=== PATIENT | male | born 1955 | race Caucasian/White ===

== ENCOUNTER 2022-05-16 09:18 | Outpatient (REF) | payer OTHER, SELFPAY ==
[2022-05-16 11:36] LABS: MANUAL DIFF FLAG NO
[2022-05-16 11:44] LABS: Basophils Absolute Auto 0.1 X10*3/uL (0.0-0.2); Basophils Percent Auto 1.2 % (0-2); Eosinophils Absolute Auto 0.1 X10*3/uL (0.0-0.4); Eosinophils Percent Auto 2.4 % (0-4); Hematocrit 40.1 % (42.0-52.0); Hemoglobin 13.4 g/dl (14.0-18.0); Imm Gran Abs Auto 0.01 X10*3/uL (0.00-0.03); Imm Gran Pct Auto 0.2 % (0.0-0.4); Lymphocytes Absolute Auto 2.1 X10*3/uL (1.2-4.9); Mean Corpuscular HGB Conc 33.4 g/dl (31.0-36.0); Mean Corpuscular Hemoglobin 29.6 pg (27.0-33.0); Mean Corpuscular Volume 88.5 fL (80.0-98.0); Mean Platelet Volume 11.6 fL (9.4-12.4); Monocytes Absolute Auto 0.5 X10*3/uL (0.1-1.2); Neutrophils Percent Auto 51.2 % (45-73); Platelet Count 195 X10*3/uL (160-400); Red Blood Count 4.53 X10*6/uL (4.60-5.80); Red Cell Distribution Width 13.1 % (11.0-16.0); White Blood Count 5.9 X10*3/uL (4.8-10.8)
[2022-05-16 12:26] LABS: B Type Natriuretic Peptide 99 pg/mL (<100)
[2022-05-16 12:38] LABS: Alanine Aminotransferase 14 U/L (0-40); Albumin Level 4.1 g/dL (3.5-5.0); Alkaline Phosphatase 50 U/L (39-117); Anion Gap 12 (12-20); Aspartate Amino Transferase 16 U/L (5-37); Bilirubin Total 0.9 mg/dL (0.0-1.0); Blood Urea Nitrogen 37 mg/dL (9-16); Calcium 8.9 mg/dL (8.4-10.2); Carbon Dioxide 29 mmol/L (22-29); Chloride 104 mmol/L (96-108); Cholesterol 244 mg/dL; Estimated Glomerular Filt Rate 53; Glucose Fasting 116 mg/dL (60-99); HDL Cholesterol 40 mg/dL; LDL Cholesterol Calculated 177 mg/dl; Potassium 4.7 mmol/L (3.3-5.1); Sodium 140 mmol/L (135-145); Total Protein 6.2 g/dL (6.5-8.0); Triglycerides 139 mg/dL
[2022-05-16 12:54] LABS: Free T4 (Free Thyroxine) 1.21 ng/dL (0.71-1.85); Prostate Specific Antigen Scr 63.42 ng/mL (<0.05-4.0); Thyroid Stimulating Hormone 1.36 uIU/mL (0.32-4.0)
[2022-05-17 18:44] LABS: Triiodothyronine T3 Total 88 ng/dL (76-181)
== END 2022-05-16 09:19 | disposition home or self-care (01) ==
LOC: HO.WFDLDS 09:18
PROVIDERS: Visit Provider Family Medicine
DX: Z00.00 Encounter for general adult medical examination without abnormal findings (principal); Z12.5 Encounter for screening for malignant neoplasm of prostate; I50.9 Heart failure, unspecified; E03.9 Hypothyroidism, unspecified
CPT/HCPCS: 36415; 80053; 80061; 83880; 84153; 84439; 84443; 84480; 85025

== ENCOUNTER 2022-05-17 11:43 | Outpatient (REF) | payer OTHER, SELFPAY ==
[2022-05-17 14:07] LABS: Appearance Urine Clear; Color Urine Yellow; Glucose Urine UA Negative (Negative); Leukocyte Esterase Urine Moderate (2+) (Negative); Nitrite Urine Negative (Negative); PH 5.5 (5.0-9.0); UMIC TRIGGER UA YES; Urine Blood Negative (Negative); Urine Ketones Trace mg/dL (Negative); Urine Protein Negative (Neg-Trace)
[2022-05-17 14:11] LABS: Bacteria Urine 4+ (None Seen); Hyaline Casts Urine 0-2 /LPF (0-2); RBC Urine 0-2 /HPF (0-2); Squamous Epithelial Cell Urine 0-2 /HPF (0-2)
[2022-05-17 14:57] LABS: Creatinine Urine 142.18 mg/dL; Microalbum/Creatinine Ratio Ur 9.1 ug/mg cr
== END 2022-05-17 11:44 | disposition home or self-care (01) ==
LOC: HO.WFDLNP 11:43
PROVIDERS: Visit Provider Family Medicine
DX: Z00.00 Encounter for general adult medical examination without abnormal findings (principal); I10 Essential (primary) hypertension
CPT/HCPCS: 81001; 81003; 82043

== ENCOUNTER → 2022-05-25 13:01 | Outpatient (BNVA) | payer OTHER, SELFPAY | PROVIDERS: PCP Family Medicine; Visit Provider Nurse Practitioner Family | DX: R97.20 Elevated prostate specific antigen [PSA] (principal); R33.9 Retention of urine, unspecified; Z91.14 Patient's other noncompliance with medication regimen; Z79.02 Long term (current) use of antithrombotics/antiplatelets | CPT/HCPCS: 51798; 99202 ==

== ENCOUNTER 2022-06-30 12:53 | Outpatient (REF) | payer OTHER, SELFPAY ==
[2022-06-30 13:33] LABS: MANUAL DIFF FLAG NO
[2022-06-30 13:41] LABS: Basophils Absolute Auto 0.1 X10*3/uL (0.0-0.2); Eosinophils Absolute Auto 0.2 X10*3/uL (0.0-0.4); Eosinophils Percent Auto 2.4 % (0-4); Hematocrit 37.7 % (42.0-52.0); Hemoglobin 12.6 g/dl (14.0-18.0); Imm Gran Abs Auto 0.02 X10*3/uL (0.00-0.03); Imm Gran Pct Auto 0.3 % (0.0-0.4); Immature Retic Fraction 5.8 % (2.3-13.4); Lymphocytes Absolute Auto 2.2 X10*3/uL (1.2-4.9); Lymphocytes Percent Auto 31.9 % (20-40); Mean Corpuscular HGB Conc 33.4 g/dl (31.0-36.0); Mean Corpuscular Hemoglobin 29.9 pg (27.0-33.0); Mean Corpuscular Volume 89.5 fL (80.0-98.0); Mean Platelet Volume 11.1 fL (9.4-12.4); Monocytes Absolute Auto 0.5 X10*3/uL (0.1-1.2); Monocytes Percent Auto 7.7 % (2-11); Neutrophils Absolute Auto 3.8 x10*3/uL (2.0-8.3); Neutrophils Percent Auto 56.7 % (45-73); Platelet Count 210 X10*3/uL (160-400); Red Blood Count 4.21 X10*6/uL (4.60-5.80); Red Cell Distribution Width 13.4 % (11.0-16.0); Retic HGB Equivalent 36.1 pg (30.0-35.0); Reticulocyte Percent 1.6 % (0.5-1.8); Reticulocytes Absolute 0.068 X10*6/uL (0.026-0.095); White Blood Count 6.8 X10*3/uL (4.8-10.8)
[2022-06-30 15:37] LABS: Iron 175 mcg/dL (45-160); Percent Iron Saturation 64 % (15-50); Total Iron Binding Capacity 275 mcg/dL (228-428); Unsaturated Iron Binding 100 ug/dL
[2022-06-30 15:56] LABS: Ferritin 742 ng/mL (20-250); Folate 8.4 ng/mL (> or = 4.0); Vitamin B12 361 pg/mL (200-900)
== END 2022-06-30 12:54 | disposition home or self-care (01) ==
LOC: HO.WFDLDS 12:53
PROVIDERS: Visit Provider Family Medicine
DX: Z00.00 Encounter for general adult medical examination without abnormal findings (principal); E53.8 Deficiency of other specified B group vitamins; D64.9 Anemia, unspecified
CPT/HCPCS: 36415; 82607; 82728; 82746; 83540; 85025; 85045

== ENCOUNTER → 2022-07-21 11:28 | Outpatient (BNVA) | payer OTHER, SELFPAY | PROVIDERS: PCP Family Medicine; Visit Provider Urology | DX: N31.9 Neuromuscular dysfunction of bladder, unspecified (principal); R97.20 Elevated prostate specific antigen [PSA]; Z80.42 Family history of malignant neoplasm of prostate; Z79.01 Long term (current) use of anticoagulants | CPT/HCPCS: Q3014 ==

== ENCOUNTER 2022-07-27 11:38 | Outpatient (REF) | payer OTHER, SELFPAY ==
[2022-07-27 11:50] VITALS: BMI 24.4
[2022-07-27 11:51] VITALS: BP 148/75; PULSE 55; RESP 16; TEMP 36.7; O2SAT 100
--- NOTE | 2022-07-27 12:17 | W.PM.OPN ---
Operative Note Operative Note Date of Service: 07/27/22 Narrative: Preoperative diagnosis: Elevated PSA Postoperative diagnosis: Elevated PSA Procedure: 1. transrectal ultrasound measurement of prostate 2. transrectal ultrasound-guided pudendal nerve block 3. transrectal ultrasound-guided prostate biopsy 12 core Surgeon: Dr. Naeem Leija Anesthetic: Local Indications for procedure: Elevated PSA 64 Procedure: After informed consent was verified, the patient was brought into the procedure area and lay left-hand side down on the table. Patient identity confirmed. Perioperative antibiotics confirmed. Safety pause time out performed. MARIA VICTORIA performed to dilate rectal sphincter Iodine 10cc with Gel was placed per rectum Ultrasound probe was placed per rectum The prostate was measured in 3 dimensions Total volume equals 60 gm No cystic structures were noted calcifications were noted at the surgical margin The prostate was otherwise heterogenous in nature - anterior lobe tissue An ultrasound-guided pudendal nerve block was performed using 10 cc of 1% lidocaine. 8 cc was placed at the base and 2 cc of the apex. A 12 core biopsy was performed with 6 cores each side. Two cores were taken at the apex, mid and base. Cores were spaced between lateral and medial. He tolerated the procedure well. Was able to ambulate to bathroom after 5 minutes. Printed instructions regarding antibiotic use and common side effects such as low-grade temperature, potential infection and bleeding were given Pathology: 12 core prostate biopsy + 1 targetted bioposy of left anterior tissue
[2022-07-27 12:25] VITALS: BP 126/74; PULSE 55; RESP 16; O2SAT 100
== END 2022-07-27 11:39 | disposition home or self-care (01) ==
LOC: HO.MS 11:38
PROVIDERS: PCP Family Medicine; Visit Provider Urology
PROC: (CPT 55700; principal; 2022-07-27 12:00)
DX: C61 Malignant neoplasm of prostate (principal)
CPT/HCPCS: 55700; 76942; 88305

== ENCOUNTER 2022-08-03 14:45 | Outpatient (AMB) | payer OTHER, SELFPAY ==
--- NOTE | 2022-08-03 14:46 | A.OFFVIS_ITS ---
Intake Intake Visit Reasons: bx results Intake Note: Patient is present for Biopsy Urology Med: None Antibiotic Allergy: None Blood Thinner: Eliquis Allergies shellfish derived Allergy (Verified 09/22/22 08:54) Anaphylaxis environmental allergies Adverse Reaction (Mild, Verified 09/22/22 08:54) Sneezing Medication List - Last Reconciled 08/03/22 by Naeem Leija MD amiodarone 0 mg PO apixaban (Eliquis) 5 mg PO BID furosemide 40 mg PO DAILY levofloxacin 500 mg PO daily 3 days lisinopril 5 mg PO DAILY metoprolol succinate ER 100 mg PO DAILY HPI HPI Comments History of Present Illness Details Anthony is a pleasant male. He is a patient of Dr. Bower. He seen for the following urologic conditions - neurogenic bladder - prostate cancer Discussed biopsy results High-grade, high-volume prostate cancer Concerns regarding metastatic disease Will organized bone scan with pelvic CT Start anti androgen with bicalutamide with plan for GnRH injection Prostate Cancer 09/18 - High Volume, Grade 5 PSA at diagnosis 63 Kale score: 5+4=9 (right base lateral and medial; right mid lateral and right apex medial), 4+5=9 (left base lateral and medial; left mid medial, right mid medial, right apex lateral), 4+4=8 (left mid lateral, left apex lateral and medial) Tumor quantitation: ? Number cores positive: 12 Total number of cores: 12 % of tissue involved:50% of all tissue examined Periprostatic fat inv.:Not identified Seminal vesicle inv.:Not identified Perineural inv.:Present, widespread LVI:Not identified Neurogenic bladder with elevated PSA Longstanding Performs CIC 6-8 times per day. Previously followed by [facility]. Supplies from [facility] pharmacy. Family history prostate cancer Recent MARIA VICTORIA shows firm prostate in office PSA 05/19 64 [facility] Surgical History Previous back surgery Social History Housing: House Alcohol intake: current Alcohol intake frequency: holidays/special occasions only Patient Tobacco Use Status: Former Tobacco user Quit Date: 1990 e-Cigarette/Vaping Use: Never Used service: Yes Current occupational status: retired Review of Systems Const Denies chills and Denies fever(s) Card Reports no additional complaints and Denies syncope Resp Denies cough GI Denies abdominal pain and Denies heartburn Reports as per HPI and Denies change in libido Neuro Denies syncope Psych Denies change in libido Endo Denies change in libido Physical Exam Const General: cooperative, healthy appearing, comfortable and no acute distress Orientation/consciousness: patient oriented x3 HEENT Face and sinus: Yes normal facial exam Mouth: moist mucous membranes Neck Neck: Yes normal visual inspection, Yes full ROM and Yes trachea midline Chest Chest palpation & inspection: normal inspection of the chest Resp Effort & Inspection: normal respiratory effort, able to speak in complete sentences and no respiratory distress GI Inspection: Yes normal to inspection Back/Spine/Pelvis Cervical Spine: normal cervical lordosis Thoracic/Lumbar Spine: thoracic and lumbar spine normal to inspection Skin General skin exam: no rashes or lesions noted Neuro General: patient oriented x3, gait normal, tone normal and moves all extremities Extrem General: Yes normal to inspection and Yes capillary refill normal Assessment & Plan Assessment & Plan (1) Prostate cancer: Code(s): C61 - Malignant neoplasm of prostate Plan Prostate cancer staging for metastatic disease Orders: Orders Blood Urea Nitrogen 08/03/22 R39.15 - Urgency of urination, C61 - Malignant neoplasm of prostate Creatinine 08/03/22 R39.15 - Urgency of urination, C61 - Malignant neoplasm of prostate CT pelvis wo IV con 08/03/22 C61 - Malignant neoplasm of prostate XR DEXA axial skeleton 3 Months M85.80 - Other specified disorders of bone density and structure, unspecified site, C61 - Malignant neoplasm of prostate NM bone scan whole body 08/03/22 C61 - Malignant neoplasm of prostate, C79.51 - Secondary malignant neoplasm of bone Medications: New bicalutamide 50 mg PO DAILY 30 tabs 0RF 30 days C61 - Malignant neoplasm of prostate Patient Instructions: Imaging studies, laboratory and physical exam results were discussed and reviewed in detail. No major barriers to patient understanding were identified. An opportunity to ask questions regarding the treatment plan was provided. All questions were answered. The patient expressed understanding and agreement with the above treatment plan. The patient is aware they should contact our office by phone for worsening of their current condition or the appearance of new urologic symptoms. Compliance is encouraged with any medications and followup testing that is ordered. It is a privilege to participate in the urologic care of your patient. If you have any questions or concerns regarding treatment for the above conditions, or other urologic issues, please do not hesitate to contact me. The office telephone contact is [phone]. This note is constructed using voice recognition software. While every effort has been made to ensure accuracy cream beater errors may have been included. Yours sincerely, Dr Naeem Leija MD, [facility] - Urology Providers of Expert, Compassionate Care for the Genitourinary System Coding Level of Care Code Est Pt Level 4 (24990) Diagnoses Prostate cancer C61
== END 2022-08-03 15:40 | disposition home or self-care (01) ==
PROVIDERS: PCP Family Medicine; Visit Provider Urology
DX: C61 Malignant neoplasm of prostate (principal)
CPT/HCPCS: 99214

== ENCOUNTER → 2022-08-03 14:45 | Outpatient (BNVA) | payer OTHER, SELFPAY | PROVIDERS: PCP Family Medicine; Visit Provider Urology | DX: C61 Malignant neoplasm of prostate (principal) | CPT/HCPCS: 99212 ==

== ENCOUNTER → 2022-09-08 10:55 | Outpatient (REF) | payer OTHER, SELFPAY ==
--- NOTE | ~2022-09-08 | NM_ITS ---
EXAMINATION: NM BONE SCAN OF THE WHOLE BODY CLINICAL INFORMATION: Malignant neoplasm of prostate. History of back surgery 35 years ago. COMPARISON: No relevant prior images are available for comparison. TECHNIQUE: Multiple gamma scintillation camera images of the whole body were performed 2.5 hours following the intravenous administration of 27 mCi Tc-99m MDP. The radiotracer was injected through left antecubital superficial vein without complications. FINDINGS: In the head, no suspicious focal lesion. In the thoracic cage and upper extremities, periarticular increased radiotracer activities are noted around both shoulders, appear relatively symmetric likely represent arthritic changes. Mild increased radiotracer activities involving bilateral ribs, specifically involving bilateral first ribs (left greater than right). Given the symmetry CT, unlikely to be metastatic disease however, metastasis is included in the differential, given its linear distribution. Alternative imaging modality including follow-up PSMA PET/CT study as appropriate may be considered for further clarification. In the spine, no suspicious focal lesion. In the pelvis, no suspicious focal lesion. In the lower extremities, periarticular increased radiotracer activities around both knees likely represent arthritic changes. No other definite bony abnormalities are noted. The urinary bladder and faint visualization of both kidneys are noted. NM/NM bone scan whole body IMPRESSION: No definite evidence of any osseous metastasis. However, increased radiotracer activities are present at both shoulder and both first ribs (left greater than right), nonspecific in appearance. Alternative imaging modality including follow-up PSMA PET/CT study may be considered for further full detail evaluation, as clinically appropriate.
== END ==
LOC: HO.NUCMED 10:55
PROVIDERS: PCP Family Medicine; Visit Provider Urology
DX: C61 Malignant neoplasm of prostate (principal); C79.51 Secondary malignant neoplasm of bone
CPT/HCPCS: 78306; A9503

== ENCOUNTER 2022-09-14 10:07 | Outpatient (REF) | payer OTHER, SELFPAY ==
--- NOTE | ~2022-09-14 | CT_ITS ---
EXAMINATION: CT PELVIS WITHOUT CONTRAST CLINICAL INFORMATION: Malignant neoplasm of prostate. COMPARISON: None available. TECHNIQUE: Helical scanning was performed with submillimeter collimation through the pelvis. Sagittal and coronal multiplanar 2-D reconstructions were obtained. This CT examination was performed using dose optimization techniques as appropriate, variously including the following: *Automated exposure control *Adjustment of mA and/or kV according to patient size (this includes techniques or standardized protocols for targeted exams where dose is matched to indication/reason for exam; i.e. extremities or head) *Use of iterative reconstruction technique DLP: 445 mGy-cm FINDINGS: PELVIS: There is scattered stool and gas seen throughout the colon without distention. The small bowel loops are normal caliber. Appendix is not visualized. No free air or free fluid seen. The urinary bladder is nondistended, however, there is mild mural thickening suspected. It measures 5 mm. The prostate gland is mildly enlarged. Periprostatic fat planes are preserved. No abnormal pelvic lymph nodes seen. OSSEOUS STRUCTURES: There are degenerative disc changes with vacuum disc phenomena L3-L4, L4-L5 and L5-S1 disc levels. No aggressive lytic process seen. There is a small sclerotic 4 mm density left sacrum likely a small bone island. No additional sclerotic area seen. CT/CT pelvis wo IV con IMPRESSION: Moderate constipation. Mild prostate enlargement. No aggressive lytic process seen. There is small sclerotic density left sacrum likely a small bone island. There are degenerative disc changes with vacuum disc phenomena at L3-L4, L4-L5 and L5-S1 disc levels.
== END 2022-09-14 10:08 | disposition home or self-care (01) ==
LOC: HO.CT 10:07
PROVIDERS: PCP Family Medicine; Visit Provider Urology
DX: C61 Malignant neoplasm of prostate (principal)
CPT/HCPCS: 72192

== ENCOUNTER 2022-09-19 08:22 | Outpatient (REF) | payer OTHER, SELFPAY ==
[2022-09-19 11:57] LABS: Blood Urea Nitrogen 27 mg/dL (9-16)
[2022-09-19 11:58] LABS: Alanine Aminotransferase 12 U/L (0-40); Albumin Level 4.1 g/dL (3.5-5.0); Alkaline Phosphatase 53 U/L (39-117); Anion Gap 10 (12-20); Aspartate Amino Transferase 13 U/L (5-37); Bilirubin Total 0.3 mg/dL (0.0-1.0); Blood Urea Nitrogen 27 mg/dL (9-16); Calcium 9.3 mg/dL (8.4-10.2); Carbon Dioxide 28 mmol/L (22-29); Chloride 108 mmol/L (96-108); Cholesterol 213 mg/dL; Estimated Glomerular Filt Rate 53; Glucose Fasting 112 mg/dL (60-99); HDL Cholesterol 36 mg/dL; LDL Cholesterol Calculated 149 mg/dl; Potassium 5.1 mmol/L (3.3-5.1); Sodium 141 mmol/L (135-145); Total Protein 6.6 g/dL (6.5-8.0); Triglycerides 140 mg/dL
== END 2022-09-19 08:23 | disposition home or self-care (01) ==
LOC: HO.WFDLDS 08:22
PROVIDERS: Urology; Visit Provider Family Medicine
DX: Z00.00 Encounter for general adult medical examination without abnormal findings (principal); R73.01 Impaired fasting glucose; E78.00 Pure hypercholesterolemia, unspecified; C61 Malignant neoplasm of prostate; R39.15 Urgency of urination
CPT/HCPCS: 36415; 80053; 80061; 84520

== ENCOUNTER 2022-09-22 08:41 | Outpatient (AMB) | payer OTHER, SELFPAY ==
--- NOTE | 2022-09-22 08:53 | A.OFFVIS_ITS ---
Intake Intake Visit Reasons: GnRH/bone scan/CT(09/08-09/14) Intake Note: Patient is present for Follow Up Bone scan/ CT (Authorization for Al[facility] is still in progress) Urology Med: Bicalutamide Antibiotic Allergy: None Blood Thinner: Eliquis Allergies shellfish derived Allergy (Verified 09/22/22 08:54) Anaphylaxis environmental allergies Adverse Reaction (Mild, Verified 09/22/22 08:54) Sneezing Medication List - Last Reconciled 09/22/22 by Naeem Leija MD amiodarone 0 mg PO apixaban (Eliquis) 5 mg PO BID bicalutamide 50 mg PO DAILY 90 days furosemide 40 mg PO DAILY levofloxacin 500 mg PO daily 3 days lisinopril 5 mg PO DAILY metoprolol succinate ER 100 mg PO DAILY HPI HPI Comments History of Present Illness Details Anthony is a pleasant male. He is a patient of Dr. Bower. He seen for the following urologic conditions - neurogenic bladder - prostate cancer Discussed imaging findings Printed copies of results provided High-grade, high-volume prostate cancer No evidence of metastatic disease Plan for prostate MRI If localization confirmed would be suitable candidate for external beam radiation Prostate Cancer 09/18 - High Volume, Grade 5 PSA at diagnosis 63 Kale score: 5+4=9 (right base lateral and medial; right mid lateral and right apex medial), 4+5=9 (left base lateral and medial; left mid medial, right mid medial, right apex lateral), 4+4=8 (left mid lateral, left apex lateral and medial) Tumor quantitation: ? Number cores positive: 12 Total number of cores: 12 % of tissue involved:50% of all tissue examined Periprostatic fat inv.:Not identified Seminal vesicle inv.:Not identified Perineural inv.:Present, widespread LVI:Not identified Staging - 09/18 Bone Scan - No definite evidence of any osseous metastasis Neurogenic bladder with elevated PSA Longstanding Performs CIC 6-8 times per day. Previously followed by [facility]. Supplies from [facility] pharmacy. Family history prostate cancer Recent MARIA VICTORIA shows firm prostate in office PSA 05/19 63 [facility] Surgical History Previous back surgery Social History Housing: House Alcohol intake: current Alcohol intake frequency: holidays/special occasions only Patient Tobacco Use Status: Former Tobacco user Quit Date: 1990 e-Cigarette/Vaping Use: Never Used service: Yes Current occupational status: retired Review of Systems Const Denies chills and Denies fever(s) Card Reports no additional complaints and Denies syncope Resp Denies cough GI Denies abdominal pain and Denies heartburn Reports as per HPI and Denies change in libido Neuro Denies syncope Psych Denies change in libido Endo Denies change in libido Physical Exam Const General: cooperative, healthy appearing, comfortable and no acute distress Orientation/consciousness: patient oriented x3 HEENT Face and sinus: Yes normal facial exam Mouth: moist mucous membranes Neck Neck: Yes normal visual inspection, Yes full ROM and Yes trachea midline Chest Chest palpation & inspection: normal inspection of the chest Resp Effort & Inspection: normal respiratory effort, able to speak in complete sentences and no respiratory distress GI Inspection: Yes normal to inspection Back/Spine/Pelvis Cervical Spine: normal cervical lordosis Thoracic/Lumbar Spine: thoracic and lumbar spine normal to inspection Skin General skin exam: no rashes or lesions noted Neuro General: patient oriented x3, gait normal, tone normal and moves all extremities Extrem General: Yes normal to inspection and Yes capillary refill normal Assessment & Plan Assessment & Plan (1) Prostate cancer: Code(s): C61 - Malignant neoplasm of prostate Plan Prostate MRI to complete staging for assessment of external beam radiation suitability Orders: Orders MR pelvis wo/w con Today C61 - Malignant neoplasm of prostate Medications: Changed From bicalutamide 50 mg PO DAILY 30 tabs 0RF 30 days C61 - Malignant neoplasm of prostate To bicalutamide 50 mg PO DAILY 90 tabs 0RF 90 days C61 - Malignant neoplasm of prostate Patient Instructions: Imaging studies, laboratory and physical exam results were discussed and reviewed in detail. No major barriers to patient understanding were identified. An opportunity to ask questions regarding the treatment plan was provided. All questions were answered. The patient expressed understanding and agreement with the above treatment plan. The patient is aware they should contact our office by phone for worsening of their current condition or the appearance of new urologic symptoms. Compliance is encouraged with any medications and followup testing that is ordered. It is a privilege to participate in the urologic care of your patient. If you have any questions or concerns regarding treatment for the above conditions, or other urologic issues, please do not hesitate to contact me. The office telephone contact is [phone]. This note is constructed using voice recognition software. While every effort has been made to ensure accuracy nurse wound errors may have been included. Yours sincerely, Dr Naeem Leija MD, [facility] - Urology Providers of Expert, Compassionate Care for the Genitourinary System Coding Level of Care Code Est Pt Level 4 (95684) Diagnoses Prostate cancer C61
== END 2022-09-22 09:10 | disposition home or self-care (01) ==
PROVIDERS: PCP Family Medicine; Visit Provider Urology
DX: C61 Malignant neoplasm of prostate (principal)
CPT/HCPCS: 99214

== ENCOUNTER → 2022-09-22 08:41 | Outpatient (BNVA) | payer OTHER, SELFPAY | PROVIDERS: PCP Family Medicine; Visit Provider Urology | DX: C61 Malignant neoplasm of prostate (principal) | CPT/HCPCS: 99212 ==

== ENCOUNTER 2022-09-27 11:27 | Outpatient (AMB) | payer OTHER, SELFPAY ==
--- NOTE | 2022-09-27 11:33 | MHC.PC.OV ---
Vital Signs 09/27/22 11:37 Height 5 ft 10 in Weight 175 lb BMI 25.1 BP 126/76 Blood Pressure Location Lt brachial Position Sitting Pulse 55 Pulse Source Pulse Oximeter Pulse Oximetry (%) 98 Intake Visit Reasons: f/u hypercholesterolemia, pre-diabetes,mild anemia Intake Note: pt is here for hypercholsterolemia, pre dm, mild anemia Retail Advertising Executive Required: No Accompanied by: Self / Same As Patient Allergies shellfish derived Allergy (Verified 09/27/22 11:33) Anaphylaxis environmental allergies Adverse Reaction (Mild, Verified 09/27/22 11:33) Sneezing Tobacco use date assessed: 09/27/22 Fall risk assessment: No Falls in past year Last assessed Fall Risk: 09/27/22 Dental Screening Dental Screen Date: 09/27/22 Did you have a dental visit in the last 12 months?: No Did you have a dental problem in the last 6 months where you did not have access to dental care?: No Was dental information given to patient?: Yes HPI f/u hypercholesterolemia, pre-diabetes,mild anemia HPI Details 67 y/o male presents to f/u pre-diabetes and hyperlipidemia. Labs were drawn 09/19/22. Reviewed labs with pt. Last A1c 06/30/22 was 6.1%. A1c today 09/27/22 is 6.2%. Triglycerides 140. TC 213. LDL 149. HDL low at 36. Pt reports today his ears are bothering him. He does note he has allergies. Blood pressure today is 126/76. He is on lisinopril 5mg and metoprolol 100mg daily. [facility] Surgical History Previous back surgery Social History Housing: House Alcohol intake: current Alcohol intake frequency: holidays/special occasions only Patient Tobacco Use Status: Former Tobacco user Quit Date: 1990 e-Cigarette/Vaping Use: Never Used service: Yes Current occupational status: retired Cognitive needs: No Hearing needs: No Vision needs: No Questionnaire Thrive Questionnaire Date Thrive assessed: 03/15/22 CAMELIA-7 AMB Questionnaire CAMELIA-7 Date CAMELIA - 7 assessed: 03/15/22 Source: Developed by Drs. David Haddad, Delfina Estes, Audie Coats and colleagues, with an educational eve from [employer]. Review of Systems Const Denies chills, Denies fatigue, Denies fever(s), Denies headache(s) and Denies weakness ENT Denies dizziness and Denies headache(s) Card Denies dyspnea Resp Denies cough, Denies dyspnea, Denies wheezing and Denies other (shortness of breath) Musc Denies numbness and Denies tingling Neuro Denies dizziness, Denies headache(s), Denies numbness, Denies tingling and Denies weakness Psych Denies anxiety and Denies depression Endo Denies fatigue Aller/Immun Denies wheezing Physical exam (Primary Care) Vital Signs: Last Vital Signs Pulse 55 09/27/22 11:37 BP 126/76 09/27/22 11:37 Pulse Ox 98 09/27/22 11:37 BMI result Body Mass Index 25.1 Tobacco/Smoking Status: Tobacco use Status Tobacco use date assessed 09/27/22 09/27/22 11:34 Patient Tobacco Use Status Former Tobacco user 09/27/22 11:34 e-Cigarette/Vaping Use Never Used 09/27/22 11:34 Thrive Assessment: Date of Thrive Assessment Date Thrive assessed 03/15/22 09/27/22 11:34 Const General: well developed; No acute distress Nutritional Appearance: well nourished Orientation/consciousness: patient oriented x3 HENMT Head: Yes normocephalic and Yes atraumatic Eyes General: appearance normal, both eyes and all related structures Pupils: Equal, round and reactive pupils present EOM: EOMs intact bilaterally Resp Effort & Inspection: normal respiratory effort Neuro General: patient oriented x3 and gait normal Cranial nerves: Yes Equal, round and reactive pupils present Psych Affect: normal affect Assessment and Plan Assessment & Plan (1) Essential hypertension: Code(s): I10 - Essential (primary) hypertension Plan: Blood pressure is controlled. Goal is less than 140/90 Continue current medications (2) Pre-diabetes: Code(s): R73.03 - Prediabetes Plan: A1c climb from 6.1% to 6.2%; pre diabetes Will ask the nurse navigator to review diet and lifestyle changes (3) Hypercholesterolemia: Code(s): E78.00 - Pure hypercholesterolemia, unspecified Plan: Lipids improved with some lifestyle changes but still elevated LDL cholesterol Start small dose Of atorvastatin will follow-up in a few months (4) Left otitis media: Code(s): H66.92 - Otitis media, unspecified, left ear Plan: Start amoxicillin (5) Low HDL (under 40): Code(s): E78.6 - Lipoprotein deficiency Plan: Encouraged exercise (6) Anemia: Code(s): D64.9 - Anemia, unspecified Plan: Persistent normocytic anemia and slightly worse than prior check Referred to Hematology-Oncology Orders: Orders Complete Blood Count Auto Diff Today D64.9 - Anemia, unspecified, Z00.00 - Encounter for general adult medical examination without abnormal findings Basic Metabolic Panel Today I48.91 - Unspecified atrial fibrillation, Z00.00 - Encounter for general adult medical examination without abnormal findings Triiodothyronine T3 Total Today E03.9 - Hypothyroidism, unspecified, I48.91 - Unspecified atrial fibrillation Free T4 (Free Thyroxine) Today E03.9 - Hypothyroidism, unspecified, I48.91 - Unspecified atrial fibrillation Thyroid Stimulating Hormone Today E03.9 - Hypothyroidism, unspecified, I48.91 - Unspecified atrial fibrillation Basic Metabolic Panel Fasting 10 Weeks E78.00 - Pure hypercholesterolemia, unspecified Lipid Panel 10 Weeks E78.00 - Pure hypercholesterolemia, unspecified, Z00.00 - Encounter for general adult medical examination without abnormal findings AMB Hemoglobin A1c Today R73.03 - Prediabetes Referrals Hematology & Oncology Referral D64.9 - Anemia, unspecified Nurse Navigator Referral R73.03 - Prediabetes Medications: New amoxicillin 500 mg PO Q12H 10 days 20 tabs 0RF atorvastatin 10 mg PO BEDTIME 90 tabs 2RF 90 days Coding Level of Care Code Est Pt Level 4 (00018) Diagnoses Essential hypertension I10 Pre-diabetes R73.03 Hypercholesterolemia E78.00 Left otitis media H66.92 Low HDL (under 40) E78.6 Anemia D64.9
[2022-09-27 11:37] VITALS: BP 126/76; PULSE 55; O2SAT 98; BMI 25.1
== END 2022-09-27 11:56 | disposition home or self-care (01) ==
PROVIDERS: PCP Family Medicine; Visit Provider Family Medicine
DX: I10 Essential (primary) hypertension (principal); R73.03 Prediabetes; E78.00 Pure hypercholesterolemia, unspecified; H66.92 Otitis media, unspecified, left ear; E78.6 Lipoprotein deficiency; D64.9 Anemia, unspecified
CPT/HCPCS: 83036; 99214

== ENCOUNTER → 2022-10-03 11:29 | Outpatient (BNV) | payer OTHER, SELFPAY | PROVIDERS: PCP Family Medicine; Visit Provider Internal Medicine | DX: D64.9 Anemia, unspecified (principal); C61 Malignant neoplasm of prostate | CPT/HCPCS: 99204; 99214 ==

== ENCOUNTER 2022-10-05 09:59 | Outpatient (AMB) | payer OTHER, SELFPAY ==
--- NOTE | 2022-10-05 10:03 | AM.OFFVISNUR ---
Intake Intake Visit Reasons: GnRH(approved) Allergies shellfish derived Allergy (Verified 09/27/22 11:33) Anaphylaxis environmental allergies Adverse Reaction (Mild, Verified 09/27/22 11:33) Sneezing Office Meds Almaz (6 month) Performing Provider: Naeem Leija MD Administered by: Caitlyn Dinero RN on 10/05/22 10:03 Dose Route Admin Location Lot Number Expiration Date NDC Nondestructive Tester 45 mg subcut left arm [id number] 12/29/23 88021-272-90 [employer]. Coding Diagnoses Assessment & Plan Assessment & Plan Orders: Orders AMB Leuprolide Injection - Practice Supplied Today C61 - Malignant neoplasm of prostate
== END 2022-10-05 10:22 | disposition home or self-care (01) ==
PROVIDERS: PCP Family Medicine; Visit Provider Urology
DX: C61 Malignant neoplasm of prostate (principal)

== ENCOUNTER → 2022-10-05 09:59 | Outpatient (BNVA) | payer OTHER, SELFPAY | PROVIDERS: PCP Family Medicine; Visit Provider Urology | DX: C61 Malignant neoplasm of prostate (principal) | CPT/HCPCS: 96402; J9217 ==

== ENCOUNTER 2022-11-08 15:07 | Outpatient (AMB) | payer OTHER, SELFPAY ==
--- NOTE | 2022-11-08 15:17 | MHC.OFFVIS ---
Intake Intake Visit Reasons: 4w/MRI (set) Intake Note: Patient is present for Follow Up MRI Urology Med: Bicalutamide, Eligard(q6m) Antibiotic Allergy: None Blood Thinner: Eliquis Pharmacy: [facility] Allergies shellfish derived Allergy (Verified 09/27/22 11:33) Anaphylaxis environmental allergies Adverse Reaction (Mild, Verified 09/27/22 11:33) Sneezing Medication List - Last Reconciled 11/08/22 by Naeem Leija MD amiodarone (Pacerone) 200 mg PO DAILY amoxicillin 500 mg PO Q12H 10 days apixaban (Eliquis) 5 mg PO BID atorvastatin 10 mg PO BEDTIME 90 days bicalutamide 50 mg PO DAILY 90 days leuprolide acetate (6 month) (Eligard) 45 mg subcut [id number] lisinopril 5 mg PO DAILY metoprolol succinate ER (Toprol XL) 100 mg PO DAILY HPI HPI Comments History of Present Illness Details Anthony is a pleasant male. He is a patient of Dr. Bower. He seen for the following urologic conditions - neurogenic bladder - prostate cancer Discussed imaging findings Printed copies of results provided High-grade, high-volume prostate cancer No evidence of metastatic disease Plan for prostate MRI If localization confirmed would be suitable candidate for external beam radiation Prostate Cancer 09/18 - High Volume, Grade 5 - GnRH 10/19 PSA at diagnosis 63 Kale score: 5+4=9 (right base lateral and medial; right mid lateral and right apex medial), 4+5=9 (left base lateral and medial; left mid medial, right mid medial, right apex lateral), 4+4=8 (left mid lateral, left apex lateral and medial) Tumor quantitation: ? Number cores positive: 12 Total number of cores: 12 % of tissue involved:50% of all tissue examined Periprostatic fat inv.:Not identified Seminal vesicle inv.:Not identified Perineural inv.:Present, widespread LVI:Not identified Staging - 09/18 Bone Scan - No definite evidence of any osseous metastasis - 10/19 prostate MRI, 2.5 cm posterior lesion PI-RADS 5, probable T3 a extension to seminal vesicles Neurogenic bladder with elevated PSA Longstanding Performs CIC 6-8 times per day. Previously followed by [facility]. Supplies from [facility] pharmacy. 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) Anemia Lipoprotein deficiency Essential hypertension Pre-diabetes Hyperlipidemia Hypercholesterolemia Surgical History Previous back surgery Family History Father Prostate cancer Lung cancer Social History Household Members: None Housing: House Alcohol intake: current Alcohol intake frequency: holidays/special occasions only Patient Tobacco Use Status: Former Tobacco user Quit Date: 1990 Tobacco use type: Cigarette e-Cigarette/Vaping Use: Never Used service: Yes ([employer]) Current occupational status: retired Cognitive needs: No Hearing needs: No Vision needs: No Assessment & Plan Assessment & Plan (1) Prostate cancer: Comment: High-grade, high volume, T3 disease Code(s): C61 - Malignant neoplasm of prostate Plan Radiation oncology referral Orders: Referrals Radiation Oncology Referral C61 - Malignant neoplasm of prostate Medications: New levofloxacin take 1 tablet day before procedure, 1 tablet day of procedure and 1 tablet day after procedure 500 mg PO daily 3 tabs 0RF 3 days C61 - Malignant neoplasm of prostate Patient Instructions: Imaging studies, laboratory and physical exam results were discussed and reviewed in detail. No major barriers to patient understanding were identified. An opportunity to ask questions regarding the treatment plan was provided. All questions were answered. The patient expressed understanding and agreement with the above treatment plan. The patient is aware they should contact our office by phone for worsening of their current condition or the appearance of new urologic symptoms. Compliance is encouraged with any medications and followup testing that is ordered. It is a privilege to participate in the urologic care of your patient. If you have any questions or concerns regarding treatment for the above conditions, or other urologic issues, please do not hesitate to contact me. The office telephone contact is [phone]. This note is constructed using voice recognition software. While every effort has been made to ensure accuracy special forces officer errors may have been included. Yours sincerely, Dr Naeem Leija MD, [facility] - Urology Providers of Expert, Compassionate Care for the Genitourinary System Coding Level of Care Code Est Pt Level 4 (89157) Diagnoses Prostate cancer C61
== END 2022-11-08 15:26 | disposition home or self-care (01) ==
PROVIDERS: PCP Family Medicine; Visit Provider Urology
DX: C61 Malignant neoplasm of prostate (principal)
CPT/HCPCS: 99214

== ENCOUNTER → 2022-11-08 15:07 | Outpatient (BNVA) | payer OTHER, SELFPAY | PROVIDERS: PCP Family Medicine; Visit Provider Urology | DX: C61 Malignant neoplasm of prostate (principal) | CPT/HCPCS: 99212 ==

== ENCOUNTER 2025-01-20 08:00 | Inpatient (IN) | payer MEDICARE, SELFPAY ==
[2025-01-20] VITALS (10 sets, daily range): BP systolic 86–160; BP diastolic 63–110; PULSE 95–158; RESP 16–26; TEMP 36.4–37.1; O2SAT 90–98; BMI 23.1; BMI 23.0
--- NOTE | ~2025-01-20 | CT_ITS ---
CLINICAL HISTORY: eval for metastatic disease CT abdomen and pelvis with contrast Comparison: CT - CT ABDOMEN PELVIS W IV CON - 01/21/25 19:04 EST Findings: Moderate bilateral pleural effusions and associated atelectatic changes. Unremarkable gallbladder and solid organs. No urolithiasis. No bowel obstruction, pneumoperitoneum, or pneumatosis. Moderately distended urinary bladder measuring 14.5 cm in craniocaudal dimension. Normal appendix. Multiple scattered sclerotic foci throughout the visualized thoracolumbar spine and sacrum. Markedly enlarged prostate measuring 6.3 x 5.0 x 5.2 cm. IMPRESSION: Moderate prostatomegaly. Scattered small sclerotic foci throughout the visualized thoracolumbar spine and sacrum may represent osseous metastatic disease. Moderately distended urinary bladder measuring 14.5 cm in craniocaudal dimension. Emptying is suggested. Moderate bilateral pleural effusions and associated atelectatic changes. This document has been electronically signed by: Buster Gavin MD on 01/21/2025 20:17:02
--- NOTE | ~2025-01-20 | XR_ITS ---
EXAMINATION: XR CHEST 1 VIEW HISTORY: sob, cough COMPARISON: There are no prior studies available for comparison. FINDINGS: Two AP portable views of the chest performed at 8:46 AM are submitted. There is airspace opacity at both lung bases, consistent with atelectasis versus pneumonia. There may be small bilateral pleural effusions. There is no pneumothorax or pulmonary vascular congestion. The heart is enlarged. There is degenerative disc disease of the spine. XR/XR chest 1V IMPRESSION: Cardiomegaly. Bibasilar atelectasis versus pneumonia. Probable small bilateral pleural effusions. Electronically signed by: David Mendez MD 01/20/2025 08:[address] [facility]
--- NOTE | ~2025-01-20 | CT_ITS ---
EXAMINATION: CT ANGIOGRAM CHEST CLINICAL INFORMATION: Dyspnea, chest pain, rapid A. fib, rule out PE. COMPARISON: No prior chest CT. Chest radiograph earlier same day. TECHNIQUE: Multiple axial images were obtained through the chest after the administration of 50 mL of Omnipaque 350 intravenous contrast. Extensive vascular post-processing including two-dimensional and three-dimensional reformatted images were created and reviewed on an independent workstation. This CT examination was performed using dose optimization techniques as appropriate, variously including the following: *Automated exposure control *Adjustment of mA and/or kV according to patient size (this includes techniques or standardized protocols for targeted exams where dose is matched to indication/reason for exam; i.e. extremities or head) *Use of iterative reconstruction technique FINDINGS: VASCULAR: Study quality is diagnostic. There is no evidence of pulmonary embolus. There is no definite right heart strain pattern. Of note, the majority of the contrast remains in the right heart and pulmonary arterial system, findings suggesting right heart failure. There is reflux of contrast into the hepatic IVC. The main pulmonary trunk is mildly prominent. The aorta is not well evaluated due to lack of contrast enhancement. There is no definite aneurysm or evidence of acute aortic syndrome. There is mild to moderate calcific atheromatous change. There is moderate cardiomegaly. There is a tiny pericardial effusion. There are moderate coronary calcifications. LUNGS: There are small to moderate-sized bilateral layering pleural effusions, with associated passive atelectasis in the adjacent lung parenchyma. There is smooth interlobular septal thickening, with associated peribronchovascular interstitial thickening, findings consistent with interstitial pulmonary edema. The small airways are patent. Central airways are patent. There is no evidence of pneumonic consolidation. MEDIASTINUM: There is no mediastinal mass or abnormal lymphadenopathy. There is a rim calcified thyroid nodule in the left superior mediastinum measuring 2.9 x 2.0 cm. The thyroid is only partially imaged. The esophagus appears mildly patulous. AXILLA/CHEST WALL: No abnormal lymph nodes or masses. UPPER ABDOMEN: Limited imaging of the upper abdominal contents demonstrates no abnormalities. OSSEOUS STRUCTURES: There are numerous sclerotic foci seen throughout the vertebral bodies, sternum, manubrium, and ribs, in keeping with blastic metastases. There is a lytic lesion in the T2 vertebral body as well (series 12, image 85). CT/CT angio chest PE protocol IMPRESSION: 1. There is no evidence of pulmonary embolus. There is no aortic aneurysm. 2. There are findings in keeping with right heart failure, with moderate cardiomegaly, interstitial pulmonary edema, small to moderate-sized layering pleural effusions bilaterally, and contrast reflux into the hepatic IVC. 3. There are innumerable tiny sclerotic foci throughout the osseous structures in keeping with blastic metastatic disease. In addition there is a lytic lesion in T2, also suspicious. Electronically signed by: Олег Doyle MD 01/20/2025 10:30 AM [facility]
--- NOTE | 2025-01-20 08:14 | ECG_ITS ---
Test Reason : sob Blood Pressure : */* mmHG Vent. Rate : 140 BPM Atrial Rate : 267 BPM P-R Int : * ms QRS Dur : 94 ms QT Int : 322 ms P-R-T Axes : -89 -46 204 degrees QTcB Int : 491 ms Atrial flutter with variable A-V block Left anterior fascicular block Anterior infarct , age undetermined ST & T wave abnormality, consider lateral ischemia Abnormal ECG When compared with ECG of 28-Jan-2008 16:04, Atrial flutter present Referred By: Nica Avila Electronically Signed By: Yomi Cueto
--- NOTE | 2025-01-20 08:17 | ED.SOB ---
HPI - SOB/Dyspnea General Chief Complaint: General Medical Stated Complaint: COUGH,ABD PAIN,DIARHEA,SOB X5D,SHINGLES CURRENTLY Source: patient, EMS, RN notes reviewed and old records reviewed Mode of arrival: EMS Limitations: no limitations History of Present Illness ED Provider: Kellen Avila PA-C HPI Narrative: 69 yo male noncompliant with medications, history of afib/aflutter, HTN, HLD, anemia, neurogenic bladder, hx CHF, pre-DM who presents to the ER from home c/o SOB, cough, intermittent chest pains and abdominal pains for the last 3 days or so. He states he had shingles about 5 weeks ago on his left trunk and is still having significant pain and has not been sleeping well. He states he was up last night with SOB and coughing. He states his chest pains are light and come and go randomly, do not radiate, worse with coughing and deep breathing. He states he had diarrhea yesterday without nausea or vomiting. He hasnt been eating much. He reports intermittent cramping abominal pains that come and go as well. He reports he has been off of all of his mediations for a long time now, that he didnt agree with a lot of them and he didn't think he needed them. MD elicited complaint: shortness of breath and cough Pertinent past history: congestive heart failure Onset (ago): day(s) Context: recent illness Timing: progressively worsening Severity: moderate Exacerbating factors: coughing and deep breaths Relieving factors: nothing Associated symptoms: chest pain, cough, sputum production, palpitations and abdominal pain Treatment prior to arrival: none Related Data Home oxygen amount: none Home Medications ?Medication ?Instructions ?Recorded ?Confirmed amiodarone 200 mg tablet (Pacerone) 200 mg PO DAILY 03/15/22 11/08/22 apixaban 5 mg tablet (Eliquis) 5 mg PO BID 03/15/22 11/08/22 lisinopril 5 mg tablet 5 mg PO DAILY 03/15/22 11/08/22 metoprolol succinate 100 mg 100 mg PO DAILY 03/15/22 11/08/22 tablet,extended release 24 hr (Toprol XL) leuprolide acetate (6 month) 45 mg 45 mg subcut [id number] 09/01/23 09/12/23 (6 month) subcutaneous syringe (Eligard) Previous Rx's ?Medication ?Instructions ?Recorded bicalutamide 50 mg tablet 50 mg PO DAILY 90 days #90 tabs 09/22/22 amoxicillin 500 mg tablet 500 mg PO Q12H 10 days #20 tabs 09/27/22 atorvastatin 10 mg tablet 10 mg PO BEDTIME 90 days #90 tabs 09/27/22 levofloxacin 500 mg tablet 500 mg PO daily 3 days #3 tabs 11/08/22 Allergies Allergy/AdvReac Type Severity Reaction Status Date / Time shellfish derived Allergy Anaphylaxis Verified 01/20/25 08:43 environmental allergies AdvReac Mild Sneezing Verified 01/20/25 08:43 Review of Systems Review of Systems: Yes all other systems are reviewed and are negative [facility] Past Medical History Medical History (Updated 01/20/25 @ 12:13 by SHAHEED Blake) 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) Anemia Lipoprotein deficiency Essential hypertension Pre-diabetes Hyperlipidemia Hypercholesterolemia Surgical History Previous back surgery Family History Family History Father Prostate cancer Lung cancer Social History Social History Household Members: None Housing: House Unable to assess alcohol history related to: Unknown Alcohol intake: current Alcohol intake frequency: holidays/special occasions only Patient Tobacco Use Status: Former Tobacco user Tobacco use type: Cigarette Smoked in Last 30 Days: No e-Cigarette/Vaping Use: Never Used Use of substances other than those prescribed or required for medical reasons: Yes Substance Use Type: Marijuana Last Used Substance: Hours (ago) Advance Directives: No Advance Directives Information Provided: Yes service: Yes ([employer]) Current occupational status: retired Cognitive needs: No Hearing needs: No Vision needs: No Physical Exam Exam: Exam: Appearance: Alert. Oriented X3. No acute distress. Head: normocephalic, atraumatic. Eyes: Pupils equal, round and reactive to light. ENT: Pharynx normal. No tonsillar swelling or exudate. Neck: Normal inspection. Neck supple. CVS: irregularly irregular, rapid rate 150s, Pulses normal. Respiratory: No respiratory distress. Breath sounds diminished at the bilateral bases, no wheezing or rhonchi. Abdomen: Soft and nontender. +BS x4 Skin: Skin warm and dry. Normal skin color. Normal skin turgor. No rashes. Extremities: No lower extremity edema. No joint swelling. no calf tenderness. Neuro/psych: Oriented X 3. No motor deficit. No sensory deficit. CN II-XII intact. Normal speech and cognition. Vital Signs: Vital Signs: Last Vital Signs Temp 98.7 F 01/20/25 08:41 Pulse 119 H 01/20/25 11:47 Resp 18 01/20/25 11:47 BP 103/77 01/20/25 11:47 Pulse Ox 98 01/20/25 11:47 O2 Del Method Room Air 01/20/25 11:47 BMI result Body Mass Index 23.1 Medications Administered Discontinued Medications Generic Name Dose Route Start Last Admin Trade Name Freq PRN Reason Stop Dose Admin Digoxin 0.25 mg 01/20/25 11:14 01/20/25 11:31 Digoxin 0.5 Mg/2 Ml Ampul IVPUSH 01/20/25 11:15 0.25 mg ONCE ONE Administration Protocol Lactated Ringer's 1,000 mls @ 999 mls/hr 01/20/25 08:15 01/20/25 09:53 Lr IV 01/20/25 09:15 Infused .Q1H1M [place] Infusion Ceftriaxone Sodium 1 gm/ 50 mls @ 100 mls/hr 01/20/25 09:23 01/20/25 10:28 Sodium Chloride IV 01/20/25 09:52 Infused ONCE ONE Infusion Azithromycin 500 mg/ Sodium 250 mls @ 125 mls/hr 01/20/25 09:23 01/20/25 10:28 Chloride IV 01/20/25 11:22 125 mls/hr ONCE ONE Administration Iohexol 100 ml 01/20/25 10:00 01/20/25 10:01 Iohexol 350 Mg/Ml 100 Ml Infus..Btl IV 01/20/25 10:01 65 ml ONCE ONE Administration Metoprolol Tartrate 5 mg 01/20/25 08:14 01/20/25 08:31 Metoprolol Tartrate 5 Mg/5 Ml Vial IVPUSH 01/20/25 08:15 5 mg ONCE ONE Administration Protocol Metoprolol Tartrate 50 mg 01/20/25 08:41 01/20/25 08:59 Metoprolol Tartrate 50 Mg Tablet PO 01/20/25 08:42 50 mg ONCE ONE Administration Protocol Medical Decision Making Medical Decision Making MDM Narrative: 69-year-old male with a history of AFib/a flutter, previously on amiodarone, Lopressor and apixaban, who has been noncompliant with all his medications presents to the ER for evaluation of shortness of breath, cough, intermittent chest pains and abdominal pains for the last couple of days. He had diarrhea yesterday. He denies any fever or chills. No known sick contacts. On arrival to the ER patient was found to be in rapid a flutter with heart rates 140s to 160s. His blood pressure is stable. IV was established and he was given 5 mg of IV Lopressor with improvement in heart rates to the 120s. Blood pressure stable. 1 L LR hung, He may be dry given his acute illness and diarrhea yesterday. P.o. Lopressor ordered. he is afebrile, low suspicion for sepsis 925 - chest x-ray showing bibasilar opacities, may be consistent with pneumonia versus atelectasis. Will empirically cover for community-acquired pneumonia with Rocephin and azithromycin. Will check lactic and cultures. Heart rates remain in the 120s. BP stable 10:38 - HR 120s, pro-BNP 6000 with bilateral pleural effusions and interstitial pulmonary edema on CTA, no PE. concern for acute CHF. no ECHO on file but CHF in his problem list. unknown EF. Has seen cardiology at [facility] in the past. will avoid cardizem with concern for acute CHF. BP soft but stable. avoiding additional IVF 11:05 spoke w/ Dr. Patrick - recommend digoxin load 0.25 q4-6 hours x3 and PO lopressor. patient not interested in anticoagulation despite CVA risk. he accepts this risk and does not want to be a on a blood thinner. we spoke about the bony abnormalities on his CT scan w/ concern for metastatic prostate cancer. he states he can prostate cancer a few years ago and declined radiation at that time because he thought he didnt really need it 12:10 - HR 110-120 with BP 111/70. will plan to admit for further management Differential Diagnosis Differential Diagnoses: The differential diagnosis associated with the presentation includes radid afib/aflutter, acute PE, PNA, acute CHF exacerbation, metastatic cancer, ACS Admission/Observation Consideration of admission/observation: Escalation of care including admission/observation considered Consult Healthcare Provider Management of the patient was discussed with: Hospitalist and Receiver/Laborer Dr. Cueto cardiology Lab Data MDM Lab Attestation statement: I reviewed the patient's lab results. no leukocytosis, trop flat 01/20/25 08:30 01/20/25 08:30 Labs: Lab Results 01/20/25 01/20/25 01/20/25 Range/Units 08:29 08:30 09:41 WBC 6.7 (4.8-10.8) X10*3/uL RBC 5.22 D (4.60-5.80) X10*6/uL Hgb 16.0 D (14.0-18.0) g/dl Hct 47.3 D (42.0-52.0) % MCV 90.6 (80.0-98.0) fL MCH 30.7 (27.0-33.0) pg MCHC 33.8 (31.0-36.0) g/dl RDW 13.9 (11.0-16.0) % Plt Count 184 (160-400) X10*3/uL MPV 12.2 (9.4-12.4) fL Immature Gran % (Auto) 0.1 (0.0-0.4) % Neut % (Auto) 70.3 (45-73) % Lymph % (Auto) 20.4 (20-40) % [place] % (Auto) 7.3 (2-11) % Eos % (Auto) 1.2 (0-4) % Baso % (Auto) 0.7 (0-2) % Lymph # (Auto) 1.4 (1.2-4.9) X10*3/uL [place] # (Auto) 0.5 (0.1-1.2) X10*3/uL Eos # (Auto) 0.1 (0.0-0.4) X10*3/uL Baso # (Auto) 0.1 (0.0-0.2) X10*3/uL Abs Immat Gran (auto) 0.01 (0.00-0.03) X10*3/uL Absolute Neuts (auto) 4.7 (2.0-8.3) x10*3/uL Absolute Nucleated RBC 0.000 (0.0-0.012) X10*3/uL Nucleated RBC % (auto) 0.0 (0.0-0.2) /100WBC PT 12.3 (11.2-13.5) SEC INR 1.0 (0.9-1.1) APTT 28.2 (26.7-34.1) SEC Sodium 140 (135-145) mmol/L Potassium 4.1 (3.3-5.1) mmol/L Chloride 109 H (96-108) mmol/L Carbon Dioxide 22 (22-29) mmol/L Anion Gap 13 (12-20) BUN 25 H (9-16) mg/dL Creatinine 1.21 (0.5-1.4) mg/dL Estim Creat Clear Calc 62.0 Estimated GFR 59 Random Glucose 162 H (60-115) mg/dL Lactic Acid 2.4 H* (0.5-2.0) mmol/L Lactic Acid F/U @ 2Hr (0.5-2.0) mmol/L Calcium 9.0 (8.4-10.2) mg/dL Magnesium 1.9 (1.6-2.6) mg/dL Total Bilirubin 1.5 H (0.0-1.0) mg/dL Direct Bilirubin 0.5 (0.0-0.5) mg/dL AST 34 (5-37) U/L ALT 41 H (0-40) U/L Alkaline Phosphatase 79 (39-117) U/L Troponin I High Sens 36.3 H 39.1 H (<3.5-35.0) ng/L NT-Pro-B Natriuret Pep 6072.4 H (<300) pg/mL Total Protein 6.6 (6.5-8.0) g/dL Albumin 4.2 (3.5-5.0) g/dL TSH 1.53 (0.32-4.0) uIU/mL Influenza Type A (PCR) NEGATIVE (Negative) Influenza Type B (PCR) NEGATIVE (Negative) RSV RNA Qual (PCR) NEGATIVE (Negative) SARS-CoV-2 RNA (RT-PCR) NEGATIVE (Negative) 11/24/25 Range/Units 11:50 WBC (4.8-10.8) X10*3/uL RBC (4.60-5.80) X10*6/uL Hgb (14.0-18.0) g/dl Hct (42.0-52.0) % MCV (80.0-98.0) fL MCH (27.0-33.0) pg MCHC (31.0-36.0) g/dl RDW (11.0-16.0) % Plt Count (160-400) X10*3/uL MPV (9.4-12.4) fL Immature Gran % (Auto) (0.0-0.4) % Neut % (Auto) (45-73) % Lymph % (Auto) (20-40) % [place] % (Auto) (2-11) % Eos % (Auto) (0-4) % Baso % (Auto) (0-2) % Lymph # (Auto) (1.2-4.9) X10*3/uL [place] # (Auto) (0.1-1.2) X10*3/uL Eos # (Auto) (0.0-0.4) X10*3/uL Baso # (Auto) (0.0-0.2) X10*3/uL Abs Immat Gran (auto) (0.00-0.03) X10*3/uL Absolute Neuts (auto) (2.0-8.3) x10*3/uL Absolute Nucleated RBC (0.0-0.012) X10*3/uL Nucleated RBC % (auto) (0.0-0.2) /100WBC PT (11.2-13.5) SEC INR (0.9-1.1) APTT (26.7-34.1) SEC Sodium (135-145) mmol/L Potassium (3.3-5.1) mmol/L Chloride (96-108) mmol/L Carbon Dioxide (22-29) mmol/L Anion Gap (12-20) BUN (9-16) mg/dL Creatinine (0.5-1.4) mg/dL Estim Creat Clear Calc Estimated GFR Random Glucose (60-115) mg/dL Lactic Acid (0.5-2.0) mmol/L Lactic Acid F/U @ 2Hr 2.0 (0.5-2.0) mmol/L Calcium (8.4-10.2) mg/dL Magnesium (1.6-2.6) mg/dL Total Bilirubin (0.0-1.0) mg/dL Direct Bilirubin (0.0-0.5) mg/dL AST (5-37) U/L ALT (0-40) U/L Alkaline Phosphatase (39-117) U/L Troponin I High Sens (<3.5-35.0) ng/L NT-Pro-B Natriuret Pep (<300) pg/mL Total Protein (6.5-8.0) g/dL Albumin (3.5-5.0) g/dL TSH (0.32-4.0) uIU/mL Influenza Type A (PCR) (Negative) Influenza Type B (PCR) (Negative) RSV RNA Qual (PCR) (Negative) SARS-CoV-2 RNA (RT-PCR) (Negative) Independent Interpretation I performed an independent interpretation of an: EKG and CT Scan Interpretation: EKG 1. At 08:19, a flutter with ventricular rate 140 beats per minute, 1mm ST depressions in lead II, III and aVF, t-wave inversions lead I-III, aVL, aVF EKG 2 At 9:00 aflutter with ventricular rate 121, t-wave inversions lead I-III, aVL, aVF, no ST segment elevations CTA without central PE, b/l effusions and consolidations Radiology Impression Discussion of test interpretation with radiology: I have reviewed the radiologist's reading. Radiologist Impression: CT/CT angio chest PE protocol IMPRESSION: 1. There is no evidence of pulmonary embolus. There is no aortic aneurysm. 2. There are findings in keeping with right heart failure, with moderate cardiomegaly, interstitial pulmonary edema, small to moderate-sized layering pleural effusions bilaterally, and contrast reflux into the hepatic IVC. 3. There are innumerable tiny sclerotic foci throughout the osseous structures in keeping with blastic metastatic disease. In addition there is a lytic lesion in T2, also suspicious. Independent Historian Clinical information obtained from an independent historian. History obtained from or confirmed by: EMS External Record Review External record reviewed: Office record, Outpatient record and Prior outpatient labs Prescription Management I considered prescription management with: Pain Medication, Antiviral and Antibiotic Chronic Conditions Patient?s care impacted by: Hypertension and Other (afib/afluter) Social Determinants Patient?s care significantly limited by Social Determinants of Health including: Problems related to primary support group medication noncompliance Critical Care Time Critical Care Time Critical Care Time: Yes Total Critical Care Time: 45 Attestation: I have personally provided critical care time exclusive of time spent on separately billable procedures. Time includes review of lab data, radiology results, discussion with consultants, and monitoring for potential decompensation. Intervention performed as documented. Discharge Plan Discharge Clinical Impression: Atrial flutter with rapid ventricular response, Bilateral pleural effusion Patient Disposition: Admitted As Inpatient
--- NOTE | 2025-01-20 08:24 | ECG_ITS ---
Test Reason : rapid afib,sob Blood Pressure : */* mmHG Vent. Rate : 121 BPM Atrial Rate : 242 BPM P-R Int : * ms QRS Dur : 96 ms QT Int : 356 ms P-R-T Axes : 270 -40 236 degrees QTcB Int : 505 ms Atrial flutter with 2:1 A-V conduction Left axis deviation Septal infarct (cited on or before 20-Jan-2025) ST & T wave abnormality, consider lateral ischemia Abnormal ECG When compared with ECG of 20-Jan-2025 08:19, No significant changes seen Referred By: Nica Avila Electronically Signed By: Yomi Cueto
[2025-01-20] MEDS: Lactated Ringers 1,000 ML 999 ML IV (08:31)
[2025-01-20 08:36] LABS: MANUAL DIFF FLAG NO
[2025-01-20 08:37] LABS: Hematocrit 47.3 % (42.0-52.0); Hemoglobin 16.0 g/dl (14.0-18.0); Imm Gran Abs Auto 0.01 X10*3/uL (0.00-0.03); Imm Gran Pct Auto 0.1 % (0.0-0.4); Lymphocytes Absolute Auto 1.4 X10*3/uL (1.2-4.9); Mean Corpuscular HGB Conc 33.8 g/dl (31.0-36.0); Mean Corpuscular Hemoglobin 30.7 pg (27.0-33.0); Mean Corpuscular Volume 90.6 fL (80.0-98.0); NRBC Abs Auto 0.000 X10*3/uL (0.0-0.012); NRBC Pct Auto 0.0 /100WBC (0.0-0.2); Platelet Count 184 X10*3/uL (160-400); Red Blood Count 5.22 X10*6/uL (4.60-5.80); White Blood Count 6.7 X10*3/uL (4.8-10.8)
[2025-01-20 08:45] LABS: INTERNATIONAL NORM RATIO 1.0 (0.9-1.1); Prothrombin Time 12.3 SEC (11.2-13.5)
[2025-01-20 08:48] LABS: Partial Thromboplastin Time 28.2 SEC (26.7-34.1)
[2025-01-20 08:54] LABS: Alanine Aminotransferase 41 U/L (0-40); Albumin Level 4.2 g/dL (3.5-5.0); Alkaline Phosphatase 79 U/L (39-117); Anion Gap 13 (12-20); Aspartate Amino Transferase 34 U/L (5-37); Blood Urea Nitrogen 25 mg/dL (9-16); Calcium 9.0 mg/dL (8.4-10.2); Carbon Dioxide 22 mmol/L (22-29); Chloride 109 mmol/L (96-108); Creatinine Clr Calc Pharmacy 62.0; Estimated Glomerular Filt Rate 59; Magnesium 1.9 mg/dL (1.6-2.6); Potassium 4.1 mmol/L (3.3-5.1); Sodium 140 mmol/L (135-145); Total Protein 6.6 g/dL (6.5-8.0)
[2025-01-20 08:57] LABS: Troponin-I High Sensitivity 36.3 ng/L (<3.5-35.0)
[2025-01-20 09:13] LABS: Resp Syncy Virus RNA Qual PCR NEGATIVE (Negative); SARS COV2 PCR INHOUSE NEGATIVE (Negative)
--- OUTSIDE RECORDS SUMMARY | 2025-01-20 09:31 | XMS_ITS | Data Portability ---
Author Organization [facility], Main Office Address [address] [place] [address] Care Team Providers Care Township Clerk Name Role Phone [facility] Urologist FLAVIO BATRES Primary Care Provider Assessment Encounter Date Assessment Date Assessment LastModified by Organization Details LastModified Time 01/07/2016 01/07/2016 Decreased hearing related to cerumenimpacti on. Needs follow up visit for PE and return to for managment of urinary retention. pheuth Not available 01/07/2016 13:43:11 03/07/2016 03/07/2016 History of urinary retention related to BPH. has had poor follow up wiht and declines surgery. Now doing self-cath 2 to 3 times per day (recommended 4 times daily). Reviewed recent labs. Recommended colon cancer screening. pheuth Not available 03/07/2016 11:00:52 Plan of Treatment Reminders Order Date Submit Date Provider Last Modified By Organization Details Last Modified Time Details Appointments None recorded. Lab CMP, serum or plasma 2018 019 J[facility], [address], [place], [id number], 9 14:23:05 lipid panel, serum 2018 019 [facility], [address], [place], [address], 9 14:23:06 hepatitis C virus Ab, serum 2018 019 [facility], [address] [place], [address], 9 16:18:27 HbA1c (hemoglobi n A1c), blood 2018 019 [facility], [address], [place], [address], 9 17:33:09 vitamin D, 25-hydroxy , total, serum 2018 019 [facility], [address], [place], [address], 9 14:41:42 colon cancer screening, stool 2018 019 [facility], [address], [place], [address], 0 15:46:29 lipid panel, serum 2015 016 JESU Not available 6 15:56:52 TSH, serum or plasma 2015 016 JESU Not available 6 15:59:18 BMP, serum or plasma 2015 016 JESU Not available 6 15:56:51 CBC w/ auto diff 2015 016 JESU Not available 6 13:53:12 Referral gastroente rologist referral - Needs colon cancer screening 2018 019 [email or web address] Not available 9 14:11:33 ophthalmol ogist referral 2016 017 aliza Elias MD, [address] [facility], [place], [address], 7 20:52:42 urologist referral 2015 016 [id number] Vaibhav Sexton MD, [address] [facility], [facility] [address], [place], [address], 6 04:32:23 Procedures cerumen removal (PROC) 2015 016 [id number]_PATCH_ [id number] In-Office Order, Internal Use Only DO Not Attach Compendium DO Not Attach Compendium, Do Not Delete/merge, [id number] 6 04:32:13 Surgeries None recorded. Imaging None recorded. Medication Orders None recorded. Patient TargetsNo targets recorded. Patient Instructions Encounter Date Encounter Id Patient Instructions Last Modified By Organization Details Last Modified Time 01/07/2016 [id number] earwax blockage: care instructions Not available 01/07/2016 14:08:36 urinary retention: care instructions Not available 01/07/2016 14:08:36 03/07/2016 [id number] urinary retention: care instructions Not available 03/08/2016 11:10:34 Colon Cancer Screening [facility]MA Not available 03/08/2016 11:10:34 learning about colon cancer Not available 03/08/2016 11:10:34 08/07/2018 [id number] urinary retention: care instructions pmadden Not available 08/07/2018 13:51:05 prediabetes: car e instructions pmadden Not available 08/07/2018 13:51:05 varicose veins: care instructions pmadden Not available 08/07/2018 13:51:05 learning about colon cancer pmadden Not available 08/07/2018 13:51:05 Colorectal Cance r Screening: Care Instructions pmadden Not available 08/07/2018 13:51:05 rec. get debrox kit - apply 5 drops in affected ear before bedtime, then place cotton ball - do so nightly x 1-3 nights, then use bulb syringe with warm water in the shower on the following day to irrigate the blockage out - do so monthly for prevention, avoid use of q-tips recommend check amazon for compression socks - get 15-20mmHg pmadden Not available 08/07/2018 13:47:08 Medications (OTC , herbal therapies, supplements) reviewed and reconciled with patient and or caregiver, including potential side effects, drug interactions, instructions, and the consequences of not taking medication. Reviewed potential barriers to medication adherence, such as side effects from medication or cost of medication. 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 Pleas e conta ct the labor atory to reord er this test if clini sasha indic ated. Test Type: [place] site algor ithmi c mg sis of stool DNA-b iomar kers with hemog lobin immun oassa y. Quant itati ve value s of indiv idual bioma rkers are not repor table and are not assoc iated with indiv idual bioma rker resul t refer ence range s. Preca ution s and Limit ation s: Colog uard is inten ded for color ectal cance r scree hugo of adult s of eithe r sex, 45 years or older , who are at [facility] for CRC. Colog uard has been appro yee for use by the U.[place]. FDA. Colog uard may produ ce a false negat portia or false posit portia resul t. A negat portia Colog uard test resul t does not guara ntee the absen ce of color ectal cance r (CRC) or advan lizeth adeno ma (pre- cance r). Patie nts with a negat portia Colog uard test resul t shoul d be advis ed to eli nue parti cipat ing in a color ectal cance r scree hugo progr am. The scree hugo inter leatha for Colog uard is curre ntly recom damián d at an inter leatha of every 3 years by the Amjules can Cance r Socie ty and U.S. Multi -Soci ety Task Force . A false posit portia resul t occur s when Colog uard produ horacio a posit portia resul t, even thoug h a colon oscop y may not find color ectal cance r or preca ncero us polyp s. The perfo rmanc e of Colog uard has been estab lishe d in a cross secti onal study (i.e. , singl e point in time) of [facility] adult s aged 50-84 . Colog uard perfo rmanc e in patie nts ages 45 to 49 years was estim ated by sub-g roup mg sis of near- age group s. Colog uard perfo rmanc e data in a 10,00 0 patie nt pivot al study using colon oscop y as the refer ence metho d can be acces sed at the follo wing locat ion: www.e xactl abs.c om/re sulglendy . Addit ional descr iptio n of the Colog uard test proce ss, warni ngs and preca ution s can be found at www.c [facility] m. Rx only. Not Available [facility] [address], [place], [address], 08/07/2019 05:56:33 01/07/20 16 01/07/2016 cerum en remov al (PROC ) done by Gabriela Not Available In-Office Order Internal Use Only DO Not Attach Compendium DO Not Attach Compendium, Do Not Delete/merge, [id number] 01/07/2016 13:41:04 02/24/20 16 02/24/2016 BMP, serum or plasm a glucose 108 mg/dL (70-99 ) high Not Available [facility] (Centralized Electronic Ordering - All Locations) Patient Can Go To The Location Of Their Choice, [id number] 02/24/2016 15:56:51 02/24/20 16 02/24/2016 BMP, serum or plasm a BUN 25 mg/dL (8-23) high Not Available [facility] (Centralized Electronic Ordering - All Locations) Patient Can Go To The Location Of Their Choice, 02/24/2016 15:56:51 02/24/20 16 02/24/2016 BMP, serum or plasm a creatinine 1.1 mg/dL (0.7-1 .2) Not Available [facility] (Centralized Electronic Ordering - All Locations) Patient Can Go To The Location Of Their Choice, 02/24/2016 15:56:51 02/24/20 16 02/24/2016 BMP, serum or plasm a sodium 142 mmol/ L (133-1 45) Not Available [facility] (Centralized Electronic Ordering - All Locations) Patient Can Go To The Location Of Their Choice, 02/24/2016 15:56:51 02/24/20 16 02/24/2016 BMP, serum or plasm a potassium 4.4 mmol/ L (3.6-5 .2) Not Available [facility] (Centralized Electronic Ordering - All Locations) Patient Can Go To The Location Of Their Choice, 02/24/2016 15:56:51 02/24/20 16 02/24/2016 BMP, serum or plasm a chloride 103 mmol/ L (98-10 7) Not Available [facility] (Centralized Electronic Ordering - All Locations) Patient Can Go To The Location Of Their Choice, 02/24/2016 15:56:51 02/24/20 16 02/24/2016 BMP, serum or plasm a bicarbonate 27 mmol/ L (22-29 ) Not Available [facility] (Centralized Electronic Ordering - All Locations) Patient Can Go To The Location Of Their Choice, 02/24/2016 15:56:51 02/24/20 16 02/24/2016 BMP, serum or plasm a anion gap 12 (4-17) Not Available [facility] (Centralized Electronic Ordering - All Locations) Patient Can Go To The Location Of Their Choice, 02/24/2016 15:56:51 02/24/20 16 02/24/2016 BMP, serum or plasm a calcium 9.2 mg/dL (8.6-1 0.5) Not Available [facility] (Centralized Electronic Ordering - All Locations) Patient Can Go To The Location Of Their Choice, 02/24/2016 15:56:51 02/24/20 16 02/24/2016 BMP, serum or plasm a est GFR non 72 mL/mi n/1.7 3_M2 The CKD-E PI creat inine equat ion has not been valid ated in child vivi (<18 years ), pregn ant women , in some racia l or ethni c subgr oups other than Cauca sians and Afric an Ameri cans. Not Available [facility] (Centralized Electronic Ordering - All Locations) Patient Can Go To The Location Of Their Choice, 02/24/2016 15:56:51 02/24/20 16 02/24/2016 BMP, serum or plasm a est GFR 84 mL/mi n/1.7 3_M2 The CKD-E PI creat inine equat ion has not been valid ated in child vivi (<18 years ), pregn ant women , in some racia l or ethni c subgr oups other than Cauca sians and Afric an Ameri cans. Not Available [facility] (Centralized Electronic Ordering - All Locations) Patient Can Go To The Location Of Their Choice, 02/24/2016 15:56:51 02/24/20 16 02/24/2016 lipid panel , serum cholesterol, total 166 mg/dL (<200) Not Available [facility] (Centralized Electronic Ordering - All Locations) Patient Can Go To The Location Of Their Choice, 02/24/2016 15:56:52 02/24/20 16 02/24/2016 lipid panel , serum triglyceride 156 mg/dL (<150) high Not Available [facility] (Centralized Electronic Ordering - All Locations) Patient Can Go To The Location Of Their Choice, 02/24/2016 15:56:52 02/24/20 16 02/24/2016 lipid panel , serum HDL chol 48 mg/dL (>39) Not Available [facility] (Centralized Electronic Ordering - All Locations) Patient Can Go To The Location Of Their Choice, 02/24/2016 15:56:52 02/24/20 16 02/24/2016 lipid panel , serum LDL cholesterol, calculated 87 mg/dL (0-130 ) Not Available [facility] (Centralized Electronic Ordering - All Locations) Patient Can Go To The Location Of Their Choice, 02/24/2016 15:56:52 02/24/20 16 02/24/2016 lipid panel , serum non HDL cholesterol (calc) 118 mg/dL (<160) Not Available [facility] (Centralized Electronic Ordering - All Locations) Patient Can Go To The Location Of Their Choice, 02/24/2016 15:56:52 02/24/20 16 02/24/2016 TSH, serum or plasm a TSH 2.08 mIU/m L (0.40- 4.00) Not Available [facility] (Centralized Electronic Ordering - All Locations) Patient Can Go To The Location Of Their Choice, 02/24/2016 15:59:18 08/14/19 19 08/13/2018 CMP, serum or plasm a glucose 122 mg/dL (70-99 ) high Not Available [facility] (Centralized Electronic Ordering - All Locations) Patient Can Go To The Location Of Their Choice, 08/13/2018 14:23:04 08/14/19 19 08/13/2018 CMP, serum or plasm a BUN 25 mg/dL (8-23) high Not Available [facility] (Centralized Electronic Ordering - All Locations) Patient Can Go To The Location Of Their Choice, 08/13/2018 14:23:04 08/14/1908/13/2018 CMP, serum or plasm a creatinine 1.0 mg/dL (0.7-1 .2) Not Available [facility] (Centralized Electronic Ordering - All Locations) Patient Can Go To The Location Of Their Choice, 08/13/2018 14:23:04 08/14/19 19 08/13/2018 CMP, serum or plasm a sodium 141 mmol/ L (133-1 45) Not Available [facility] (Centralized Electronic Ordering - All Locations) Patient Can Go To The Location Of Their Choice, 08/13/2018 14:23:04 08/14/1908/13/2018 CMP, serum or plasm a potassium 4.5 mmol/ L (3.6-5 .2) Not Available [facility] (Centralized Electronic Ordering - All Locations) Patient Can Go To The Location Of Their Choice, 08/13/2018 14:23:04 08/14/1908/13/2018 CMP, serum or plasm a chloride 105 mmol/ L (98-10 7) Not Available [facility] (Centralized Electronic Ordering - All Locations) Patient Can Go To The Location Of Their Choice, 08/13/2018 14:23:08/14/1908/13/2018 CMP, serum or plasm a bicarbonate 28 mmol/ L (22-29 ) Not Available [facility] (Centralized Electronic Ordering - All Locations) Patient Can Go To The Location Of Their Choice, 08/13/2018 14:23:08/14/1908/13/2018 CMP, serum or plasm a anion gap 8 (4-17) Not Available [facility] (Centralized Electronic Ordering - All Locations) Patient Can Go To The Location Of Their Choice, 08/13/2018 14:23:08/14/1908/13/2018 CMP, serum or plasm a albumin 4.4 gm/dL (3.4-4 .8) Not Available [facility] (Centralized Electronic Ordering - All Locations) Patient Can Go To The Location Of Their Choice, 08/13/2018 14:23:08/14/1908/13/2018 CMP, serum or plasm a calcium 9.2 mg/dL (8.6-1 0.5) Not Available [facility] (Centralized Electronic Ordering - All Locations) Patient Can Go To The Location Of Their Choice, 08/13/2018 14:23:04 08/14/1908/13/2018 CMP, serum or plasm a bilirubin,to aranza 0.5 mg/dL (0-1.2 ) Not Available [facility] (Centralized Electronic Ordering - All Locations) Patient Can Go To The Location Of Their Choice, 08/13/2018 14:23:08/14/1908/13/2018 CMP, serum or plasm a total protein 6.3 gm/dL (6.2-8 .2) Not Available [facility] (Centralized Electronic Ordering - All Locations) Patient Can Go To The Location Of Their Choice, 08/13/2018 14:23:08/14/1908/13/2018 CMP, serum or plasm a Ag ratio 2.3 Not Available [facility] (Centralized Electronic Ordering - All Locations) Patient Can Go To The Location Of Their Choice, 08/13/2018 14:23:08/14/1908/13/2018 CMP, serum or plasm a AST 13 U/L (0-38) Not Available [facility] (Centralized Electronic Ordering - All Locations) Patient Can Go To The Location Of Their Choice, [id number] 08/13/2018 14:23:04 08/14/1908/13/2018 CMP, serum or plasm a alk phos 69 U/L (40-12 9) Not Available [facility] (Centralized Electronic Ordering - All Locations) Patient Can Go To The Location Of Their Choice, 08/13/2018 14:23:04 08/14/1908/13/2018 CMP, serum or plasm a ALT 10 U/L (0-41) Not Available [facility] (Centralized Electronic Ordering - All Locations) Patient Can Go To The Location Of Their Choice, 08/13/2018 14:23:04 08/14/1908/13/2018 CMP, serum or plasm a est GFR non 79 mL/mi n/1.7 3_M2 Creat inine based estim ated glome rular filtr ation rate (eGFR ) is calcu lated using the Chron ic Kidne y Disea se Epide miolo gy Colla borat ion (CKD- EPI). The CKD-E PI creat inine equat ion has not been valid ated in child vivi (<18 years ), pregn ant women or in some racia l or ethni c subgr oups other than Cauca sians and Afric an Ameri cans. Not Available [facility] (Centralized Electronic Ordering - All Locations) Patient Can Go To The Location Of Their Choice, [id number] 08/13/2018 14:23:04 08/14/1908/13/2018 CMP, serum or plasm a est GFR 92 mL/mi n/1.7 3_M2 Creat inine based estim ated glome rular filtr ation rate (eGFR ) is calcu lated using the Chron ic Kidne y Disea se Epide miolo gy Colla borat ion (CKD- EPI). The CKD-E PI creat inine equat ion has not been valid ated in child vivi (<18 years ), pregn ant women or in some racia l or ethni c subgr oups other than Cauca sians and Afric an Ameri cans. Not Available [facility] (Centralized Electronic Ordering - All Locations) Patient Can Go To The Location Of Their Choice, [id number] 08/13/2018 14:23:04 08/14/19 19 08/13/2018 lipid panel , serum cholesterol, total 169 mg/dL (<200) Not Available [facility] (Centralized Electronic Ordering - All Locations) Patient Can Go To The Location Of Their Choice, [id number] 08/13/2018 14:23:06 08/14/19 19 08/13/2018 lipid panel , serum triglyceride 72 mg/dL (<150) Not Available [facility] (Centralized Electronic Ordering - All Locations) Patient Can Go To The Location Of Their Choice, [id number] 08/13/2018 14:23:08/14/19 19 08/13/2018 lipid panel , serum HDL chol 57 mg/dL (>39) Not Available [facility] (Centralized Electronic Ordering - All Locations) Patient Can Go To The Location Of Their Choice, [id number] 08/13/2018 14:23:06 08/14/19 19 08/13/2018 lipid panel , serum LDL cholesterol, calculated 98 mg/dL (0-130 ) Not Available [facility] (Centralized Electronic Ordering - All Locations) Patient Can Go To The Location Of Their Choice, [id number] 08/13/2018 14:23:06 08/14/19 19 08/13/2018 lipid panel , serum non HDL cholesterol (calc) 112 mg/dL (<160) Not Available [facility] (Centralized Electronic Ordering - All Locations) Patient Can Go To The Location Of Their Choice, [id number] 08/13/2018 14:23:06 08/14/1908/13/2018 vitam in D, 25-hy droxy , total , serum 25OH vitamin D 7.6 NG/mL (20-50 ) low Serum 25OHD : Less than 12 ng/ml : at risk of vitam in D defic iency . Refer ence: [facility] Data Brief : No.59 April: Vitam in D Statu s: Unite d State s: 2000- 2005 Not Available [facility] (Centralized Electronic Ordering - All Locations) Patient Can Go To The Location Of Their Choice, [id number] 08/13/2018 14:41:41 08/14/1908/13/2018 hepat itis C virus Ab, serum anti-hepatit is C NEGAT PORTIA Refer ence range : Negat portia This test was perfo rmed on the Abbot t Archi tect immun oassa y syste m. Not Available [facility] (Centralized Electronic Ordering - All Locations) Patient Can Go To The Location Of Their Choice, [id number] 08/13/2018 16:18:27 08/14/19 19 08/13/2018 HbA1c (hemo globi n A1c), blood hemoglobin A1C, (diagnostic) 5.9 % (0-5.6 ) high INCRE ASED RISK FOR DIABE RAVI MELLI TUS. DIABE RAVI CARE, VOLUM E 33, SUPPL EMENT 1, JANUA RY,20 10 Hemog lobin (Hb) A1c testi ng is perfo rmed by Josue Felicita- quant immun oassa y. Any cause of short ened eryth rocyt e survi leatha will reduc e expos ure of eryth rocyt es to gluco se with a conse quent decre ase in Hb A1c (%). Cause s of short ened eryth rocyt e lifet prem might be hemol ytic anemi a or other hemol ytic disea ses, prese nce of homoz ygous forms of abnor mal Hb (eg, SS, CC, SC), pregn kassandra, or recen t signi fican t or chron ic blood loss. Speci mens conta ining Hb F highe r than 10 perce nt of total Hb may resul t in lower than expec francesco % Hb A1c. Not Available [facility] (Centralized Electronic Ordering - All Locations) Patient Can Go To The Location Of Their Choice, [id number] 08/13/2018 17:33:09 01/11/20 16 12/28/2012 CT, abdom en + pelvi s, w/o contr ast No observ ation record ed. BARCODE Not Available 2015 14:53:48 Result Notes None recorded. Problems Name Problem SNOMED Code Status Onset Date Resolution Date Notes Provider Name and Address Organization Details Recorded Time Administ ration of bacteria l and viral vaccine Completed 200810/07/2013 RECORDED 07/01/19 09 9:14AM BY YONATHAN SCHULER, OFFICE VISIT Not Available [facility] 4 05:27:39 Administ ration of bacteria l and viral vaccine Completed 200809/10/2013 RECORDED 07/01/19 09 9:14AM BY YONATHAN SCHULER, OFFICE VISIT Not Available [facility] 4 14:16:46 Acute pharyngi tis [id number] Completed 201110/07/2013 IMPRESSI ON: RAPID STREP NEG, SUSPECT VIRAL. ADVISED RE SX CARE. CALL FOR WORSENIN G SXS/PRN. ; RECORDED 10/24/19 12 9:38AM BY KENYA HERRERA MA, ANNOTATI ON/ADDEN DUM Not Available [facility] 4 05:27:39 Disorder of bursa of shoulder region [id number] Completed 201110/07/2013 RECORDED 10/24/19 12 10:36AM BY CARRILLO BRUCE MD, ANNOTATI ON/ADDEN DUM Not Available [facility] 4 05:27:39 Urinary tract infectio us disease [id number] Completed 201110/07/2013 IMPRESSI ON: SOME MILD PROSTATE TENDERNE SS ON EXAM, CONSIDER PROSTATI TIS; RECORDED 10/24/19 12 9:38AM BY KENYA HERRERA MA, ANNOTATI ON/ADDEN DUM Not Available [facility] 4 05:27:39 Acute pharyngi tis [id number] Completed 201109/10/2013 IMPRESSI ON: RAPID STREP NEG, SUSPECT VIRAL. ADVISED RE SX CARE. CALL FOR WORSENIN G SXS/PRN. ; RECORDED 10/24/19 12 9:38AM BY KENYA HERRERA MA, ANNOTATI ON/ADDEN DUM Not Available [facility] 4 14:16:45 Disorder of bursa of shoulder region [id number] Completed 201109/10/2013 RECORDED 10/24/19 12 10:36AM BY CARRILLO BRUCE MD, ANNOTATI ON/ADDEN DUM Not Available [facility] 4 14:16:47 Urinary tract infectio us disease [id number] Completed 201109/10/2013 IMPRESSI ON: SOME MILD PROSTATE TENDERNE SS ON EXAM, CONSIDER PROSTATI TIS; RECORDED 10/24/19 12 9:38AM BY KENYA HERRERA MA, ANNOTATI ON/ADDEN DUM Not Available [facility] 4 14:16:47 Impacted saúlumen [id number] Completed 201110/07/2013 RECORDED 02/24/20 12 10:31AM BY CAROL HEREDIA MA, ANNOTATI ON/ADDEN DUM Not Available [facility] 4 05:27:39 Screenin g for malignan t neoplasm of colon Completed 201110/07/2013 RECORDED 02/24/20 12 10:31AM BY CAROL HEREDIA MA, ANNOTATI ON/ADDEN DUM Not Available [facility] 4 05:27:39 Impacted saúlumen [id number] Completed 201109/10/2013 RECORDED 02/24/20 12 10:31AM BY CAROL HEREDIA MA, ANNOTATI ON/ADDEN DUM Not Available [facility] 4 14:16:46 Screenin g for malignan t neoplasm of colon Completed 201109/10/2013 RECORDED 02/24/20 12 10:31AM BY CAROL HEREDIA MA, ANNOTATI ON/ADDEN DUM Not Available [facility] 4 14:16:46 Malaise and fatigue [id number] Completed 201210/07/2013 RECORDED 12/29/19 13 12:57PM BY ANAHI CHAMPAGNE MA, ANNOTATI ON/ADDEN DUM Not Available [facility] 4 05:27:39 Glucose level outside referenc e range 512092772 Completed 201210/07/2013 RECORDED 12/29/19 13 12:57PM BY ANAHI CHAMPAGNE MA, ANNOTATI ON/ADDEN DUM Not Available [facility] 4 05:27:39 Screenin g procedur e Completed 201210/07/2013 RECORDED 12/29/19 13 12:57PM BY ANAHI CHAMPAGNE MA, ANNOTATI ON/ADDEN DUM Not Available [facility] 4 05:27:39 Malaise and fatigue 130542745 Completed 201209/10/2013 RECORDED 12/29/19 13 12:57PM BY ANAHI CHAMPAGNE MA, FAMILIAATI ON/ADDEN DUM Not Available [facility] 4 14:16:46 Glucose level outside referenc e range 283676562 Completed 201209/10/2013 RECORDED 12/29/19 13 12:57PM BY ANAHI CHAMPAGNE MA, FAMILIAATI ON/ADDEN DUM Not Available [facility] 4 14:16:46 Screenin g procedur e Completed 201209/10/2013 RECORDED 12/29/19 13 12:57PM BY ANAHI CHAMPAGNE MA, RADHA ON/ADDEN DUM Not Available [facility] 4 14:16:46 Finding of trunk structur e Completed 201210/07/2013 RESOLVED DATE: 01/03/20 13; STORY: WOUND UP BEING SEVERELY DISTENDE D BLADDER; RECORDED 01/03/20 13 2:36PM BY SHAHEED BANDA, ANNOTATI ON/ADDEN DUM Not Available [facility] 4 05:27:39 Retentio n of urine [id number] Completed 201210/07/2013 RECORDED 01/03/20 13 1:00PM BY BALAJI AG MA, ANNOTATI ON/ADDEN DUM YONATHAN Thurston MA - [facility] 6 13:16:50 Adult health examinat ion Completed 201210/07/2013 RECORDED 01/03/20 13 1:00PM BY BALAJI AG MA, FAMILIAATI ON/ADDEN DUM Not Available [facility] 4 05:27:39 Edema [id number] Completed 201210/07/2013 RECORDED 01/03/20 13 12:59PM BY BALAJI AG MA, RADHA ON/ADDEN DUM Not Available [facility] 4 05:27:39 Follow-u p encounte r Completed 201210/07/2013 RECORDED 01/03/20 13 1:00PM BY BALAJI AG MA, ANNOTATI ON/ADDEN DUM Not Available [facility] 4 05:27:39 Finding of trunk structur e Completed 201209/10/2013 RESOLVED DATE: 01/03/20 13; STORY: WOUND UP BEING SEVERELY DISTENDE D BLADDER; RECORDED 01/03/20 13 2:36PM BY SHAHEED BANDA, ANNOTATI ON/ADDEN DUM Not Available [facility] 4 14:16:45 Retentio n of urine [id number] Completed 201209/10/2013 RECORDED 01/03/20 13 1:00PM BY BALAJI AG MA, ANNOTATI ON/ADDEN DUM YONATHAN [place] - [facility] 6 13:16:50 Adult health examinat ion Completed 201209/10/2013 RECORDED 01/03/20 13 1:00PM BY BALAJI AG MA, ANNOTATI ON/ADDEN DUM Not Available [facility] 4 14:16:45 Edema [id number] Completed 201209/10/2013 RECORDED 01/03/20 13 12:59PM BY BALAJI AG MA, ANNOTATI ON/ADDEN DUM Not Available [facility] 4 14:16:46 Follow-u p encounte r Completed 201209/10/2013 RECORDED 01/03/20 13 1:00PM BY BALAJI AG MA, ANNOTATI ON/ADDEN DUM Not Available [facility] 4 14:16:46 Acute kidney injury [id number] Completed 201310/07/2013 STORY: SECONDAR Y TO URINARY RETENTIO N; IMPRESSI ON: KEEP UROLOGY APPT. DOING BETTER.; RECORDED 05/14/19 14 1:54PM BY CARRILLO BRUCE MD, FAMILIAATI ON/ADDEN DUM Not Available [facility] 4 05:27:39 Laborato ry procedur e performe d [id number] Completed 201310/07/2013 RECORDED 05/14/19 14 1:17PM BY ANAHI CHAMPAGNE MA, ANNOTATI ON/ADDEN DUM Not Available [facility] 4 05:27:39 Acute kidney injury 98314217 Completed 201309/10/2013 STORY: SECONDAR Y TO URINARY RETENTIO N; IMPRESSI ON: KEEP UROLOGY APPT. DOING BETTER.; RECORDED 05/14/19 14 1:54PM BY CARRILLO BRUCE MD, ANNOTATI ON/ADDEN DUM Not Available [facility] 4 14:16:45 Anemia 700678969 Completed 201308/07/2018 Flavio Batres PA-C [address] [facility] [address], [place], [address] , [facility] 9 13:35:56 Clinical finding Completed 201301/07/2016 IMPRESSI ON: LETTER SENT. UNABLE TO REACH PT BY PHONE; RECORDED 05/14/19 14 1:17PM BY ANAHI CHAMPAGNE MA, OFFICE VISIT YONATHAN [place] [facility] 6 13:17:01 Tobacco user [id number] Completed 201303/07/2016 Removal Reason: quit YONATHAN [place], [facility] 7 10:15:11 History of clinical finding in subject [id number] Completed 201301/07/2016 RECORDED 05/14/19 14 1:17PM BY ANAHI CHAMPAGNE MA, OFFICE VISIT YONATHAN [place] [facility] 6 13:17:05 Hyperlip idemia 41266762 Active 2013 YONATHAN [place] [facility] 6 13:17:08 Laborato ry procedur e performe d [id number] Completed 201309/10/2013 RECORDED 05/14/19 14 1:17PM BY ANAHI CHAMPAGNE MA, RADHA ON/ADDEN DUM Not Available [facility] 4 14:16:46 Immuniza tion refused Completed 201301/07/2016 RECORDED 05/14/19 14 1:17PM BY ANAHI CHAMPAGNE MA, OFFICE VISIT YONATHAN [place], [facility] 6 13:16:56 Retentio n of urine 051698256 Active 2013 STORY: FOLLOW UP WITH DR. SEXTON. YONATHAN [place], [facility] 6 13:16:50 Ex-smoke r 5249482 Active 2016 YONATHAN [place], [facility] 7 10:15:19 Benign prostati c hyperpla chastity with outflow obstruct ion 672795439 Active 2018 Flavio Batres PA-C [address], [place], [address] , [facility] 9 14:07:37 Impaired fasting glycemia 013702317 Active 2018 Flavio Batres PA-C [address], [place], [address] , [facility] 9 14:07:44 Varicose veins of lower extremit y 35556294 Active 2018 Flavio Batres PA-C [address], [place], [address] , [facility] 9 14:07:47 Prediabe ravi 680664250 Active 2018 Flavio Batres PA-C [address], [place], [address] , [facility] 9 12:46:17 Vitamin D deficien cy 96960963 Active 2018 Flavio Batres PA-C [address], [place], [address] , [facility] 9 12:46:19 Problem Notes None recorded. Procedures Surgical History Date Name Laterality Status Provider Name and Address Organization Details Recorded Time Colonoscopy completed Anahi YONATHAN Tavarez [facility] 03/07/2016 10:26:42 Back Surgery completed Anahi Tavarez [place] [facility] 03/07/2016 10:26:05 FOBT completed Anahi Tavarez [facility] 03/07/2016 10:29:31 Imaging Results None recorded. Procedure Notes None recorded. Medical Equipment None Reported. Allergies Allergen ID Allergen Name Allergen Category Reaction Reaction Severity Criticality Documentation Date Start Date Code Code System Note Provider Name and Address Organization Details Recorded Time 51308 POLLEN EXTRACTS environme nt,medica tion eye swelling moderate Not available 08/07/2018 66147 6 RxNorm Renettajosef bowser [facility] 9 12:56:24 49965 shellfish derived food,medi cation anaphylax is severe Not available 08/07/2018 Renetta bowser [facility] 9 12:56:48 Medications Name Sig Start Date Stop Date Status Note LastModified by Organization Details LastModified Time phenazopy ridine 200 mg tablet 3 TIMES PER DAY FOR 2 DAYS AFTER MEALS FOR URINARY 07/06 completed RECORDED 07/13/19 12 4:22PM BY CARRILLO BRUCE MD, MEDICATI ON AUTO-ISAAC CTIVATIO N; Not Available Not Available Not Available ciproflox acin 250 mg tablet TWO TIMES DAILY 07/11 completed RECORDED 07/13/19 12 4:22PM BY CARRILLO BRUCE MD, MEDICATI ON AUTO-ISAAC CTIVATIO N; Not Available Not Available Not Available Cortispor in-TC 3.3 mg-3 mg-10 mg-0.5 mg/mL ear drops,marta pension 3 TIMES A DAY 08/21 completed RECORDED 09/02/19 10 2:48PM BY EVERARDO LIZARRAGA PA-C, MEDICATI ON AUTO-ISAAC CTIVATIO N; Not Available Not Available Not Available cholecalc iferol (vitamin D3) 1,250 mcg (50,000 unit) capsule Take 1 capsule every week by oral route for 56 days. 2018 active Not Available Not Available Not Avai lable Vitals Date Recorded Systolic And Diastolic Provider Name and Address Organization Details Last Updated DateTime 03/07/2016 122/80 mm[Hg] Carrillo Bruce MD [address] [address], [place], [address], [facility] 03/07/2016 11:01:21 Date Recorded Body height Oxygen saturation Heart rate Body temperature Body weight Body mass index (BMI) Provider Name and Address Organization Details Last Updated DateTime 7 176.53 cm 99 % 73 /min 97.7 [degF] 42094.3 3 g 24.2 kg/m2 Anahi jimenez MA [facility] 7 10:32:23 Date Recorded Body height Body mass index (BMI) Body weight Heart rate Oxygen saturation Body temperature Systolic And Diastolic Provider Name and Address Organization Details Last Updated DateTime 9 176.53 cm 23.9 kg/m2 75779.1 5 g 89 /min 98 % 97.8 [degF] 131/89 mm[Hg] Renetta Scott [facility] 9 12:55:08 Date Recorded Body height Oxygen saturation Heart rate Body temperature Body weight Body mass index (BMI) Systolic And Diastolic Provider Name and Address Organization Details Last Updated DateTime 6 182.88 cm 100 % 68 /min 97.2 [degF] 29296.3 3 g 22.5 kg/m2 114/76 mm[Hg] Anahi jimenez MA [facility] 6 13:24:47 Social History Question Answer Notes LastModified by Organizat ion Details LastModified Time Tobacco Smoking Status Former Smoker YONATHAN Gutierrez, [facility] 01/07/2016 13:21:11 Do You Have An Advance Directive? Yes Signed On 03/07/2016 Information not available 03/07/2016 Is Blood Transfusion Acceptable In An Emergency? Yes Information not available 03/07/2016 What Is Your Level Of Caffeine Consumption? Moderate 1 Cup Of Coffee Daily Information not available 03/07/2016 How Much Tobacco Do You Chew? None Information not available 01/07/2016 What Type Of Diet Are You Following? REGULAR Information not available 01/07/2016 Which Illicit Or Recreational Drugs Have You Used? None Information not available 03/07/2016 Live Alone Or With Others? With Others Roommate Information not available 03/07/2016 Do You Take Precautions To Prevent Distracted Driving? Yes Information not available 03/07/2016 How Often Do You Need To Have Someone Help You When You Read Instructions, Pamphlets, Or Other Written Material From Your Doctor Or Pharmacy? Never Information not available 03/07/2016 Have You Served In The ? Yes Information not available 03/07/2016 What Was The Date Of Your Most Recent Tobacco Screening? 08/07/2018 Information not available 09/20/2018 How Many Children Do You Have? 2 Sons Information not available 03/07/2016 Seat Belts Used Routinely Yes Information not available 03/07/2016 Are You Sexually Active? No Information not available 03/07/2016 Smoke Alarm In Home Yes Information not available 03/07/2016 At What Age Did You Start Smoking Tobacco? 20 Quit At 39 Information not available 03/07/2016 How Much Tobacco Do You Smoke? 1 PPD Information not available 03/07/2016 Do You Use Sunscreen Routinely? No Information not available 03/07/2016 How Many Years Have You Smoked Tobacco? 19 Information not available 03/07/2016 Sex: Unknown Functional Status Question Answer Note LastModified by Organizat ion Details LastModified Time What is your level of alcohol consumption? Moderate every night, before bed Information not available 03/07/2016 Are you currently employed? Yes Information not available 01/07/2016 Are you able to care for yourself independently? 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 None Information not available 03/07/2016 Mental Status None recorded. Family History Relationship Description Onset Age of this Age Resolved Age Notes LastModified by Organization Details LastModified Time Father No current problems or disability [email or web address] s Not available 01/07/2016 13:17:12 Mother No current problems or disability [email or web address] s Not available 01/07/2016 13:17:12 Medical History No medical history recorded. Immunizations Vaccine Type Date Status Note Provider Nam e and Address Organization Details Recorded Time Td (adult), 2 Lf tetanus toxoid, preservative free, adsorbed 9 completed Not Available [facility] 03/16/2019 02:21:30 Tdap 9 completed Not Available [facility] 09/10/2013 13:53:16 Past Encounters Encounter ID Performer Location Encounter Start Date Encounter Closed Date Diagnosis/Indication Diagnosis SNOMED-CT Code Diagnosis ICD10 Code Diagnosis IMO Codes Diagnosis Note [id number] autoEComm erce [address] [facility] [place] [address] 06/30/2008 00:00:00 [id number] autoEComm erce [address] [facility] [place] [address] 08/14/2009 00:00:00 [id number] autoEComm erce [address] [facility] [place] [address] 07/13/2010 00:00:00 [id number] autoEComm erce [address] [facility] [place] [address] 07/05/2011 00:00:00 [id number] autoEComm erce [address] [facility] [place] [address] 10/24/2011 00:00:00 [id number] autoEComm erce [address] [facility] [place] [address] 12/28/2012 00:00:00 [id number] auto[facility]Comm erce [address] [facility] [address] [place] [address] 01/02/2013 00:00:00 [id number] autoEComm erce [address] [facility] [address] [place] [address] 05/13/2013 00:00:00 [id number] Carrillo Bruce MD Main Office [address] [place] [address] 01/07/2016 13:14:30 01/07/2016 14:10:54 Impacted cerumen 00735876 H61.23 Retention of urine 54302 4002 R33.9 Hyperlipidemia 83329211 E78.5 Fatigue 59969469 R53.83 [id number] Carrillo Bruce MD Main Office [address] [place] [address] 03/07/2016 10:01:52 03/07/2016 10:59:50 Adult health examination 690239979 Z00.00 Varicella vaccination 68 873724 Z23 Screening for malignant neoplasm of colon 354634447 Z12.11 Plans to do FOBT Retention of urine 91677 4002 R33.9 Benign pro static hyperplasia with outflow obstruction 447241729 N13.8 Followed by . has declined surgery for severe obstructio n. [id number] Vance Gore MD Main Office [address] [address] 08/07/2018 12:47:03 08/07/2018 14:11:32 Adult health examination 008620373 Z00.00 Screening for malignant neoplasm of colon 370205316 Z12.11 rec colonoscop y, but if he defers - at least look into cologuard Retention of urine 84830 4002 R33.9 History of urinary retention related to BPH. has had poor follow up with and declines surgery. Now doing self-cath 2 to 3 times per day (recommend ed 4 times daily). pending f/u c uro next wk Benign pro static hyperplasia with outflow obstruction 333340258 N13.8 Followed by . has declined surgery for severe obstructio n. Vitamin D deficiency 347 86433 E55.9 Impaired f asting glycemia 100294521 R73.01 Requires a tetanus booster 089358396 Z23 Varicella vaccination 68 876948 Z23 Varicose v eins of lower extremity 13749260 I83.93 Health Concerns Section Related Observation LastModified by Organization Detai ls LastModified Time None Recorded Concern Status LastModified by Organization Details LastModified Time None Recorded Advance Directives Directive Y: signed on 03/07/2016 Payers Insurance Date Sequence Insurance Name Policy Number Policy Gant Covered Member ID Gant Member ID Guarantor Name 03/21/2022 1 [employer] [id number] Anthony Maldonado [id number] Anthony Maldonado 03/21/2022 1 [employer] [id number] Anthony Maldonado [id number] Anthony Maldonado 03/21/2022 1 [employer] (PPO) [id number] Anthony Maldonado [id number] Anthony Maldonado Notes Date Note Type Note Provider Name and Address Organization Details Recorded Time 01/07/2016 text/html ROS as noted in the HPI Notes decreased hearing and some discomfort both ears. Has had to have ear lavage in the past. No fevers. No nasal congestion, headaches, sore throat. Carrillo Bruce MD [address], [address], [facility] [place] 01/07/2016 13:45:38 03/07/2016 text/html Here for PE visit. Reviewed chronic medications and medical problems. Discussed screening guidelines as well as goals for fitness and weight management. Noted to have history of urinary retention related to BPH. now with bladder dysfunction requiring intermittent self cath. He has repeat US and follow up scheduled with urology. Carrillo Bruce MD [address] [address], [place], [address], [facility] [place] 03/07/2016 11:01:56 08/07/2018 text/html Generic HPI TemplateReported by Patient here for annual pe. Flavio Batres PA-C [address] [address], [place], [address], [facility] [place] 08/07/2018 14:08:13
[2025-01-20] MEDS: iohexoL 350 MG/ML 100 ML INFUS..BTL IV (10:01)
[2025-01-20 10:09] LABS: Troponin-I High Sensitivity 39.1 ng/L (<3.5-35.0)
--- NOTE | 2025-01-20 10:53 | PC.NURSE ---
Pt arrived in the ED with multiple complaints, pt found to be in Afrb RVR, medications given per APR. Pt noted to have pnu as well in Xray, labs/cultures obtained, Pt brought to CT at 0950 while this RN was going to hang antibiotics, this RN hung IV antibiotics once pt returned from CT, which noted the delay in orders. Pt remains A/Ox4, remaints having complaints of chest discomfort. Pt notified that next time he needs to straight cath we are going to send down a urine on from it and to alert STAFF. call hook within reach, pt remains on monitor
--- NOTE | 2025-01-20 11:10 | PC.NURSE ---
Pt arrived by eMS w/ c/o coudh, sob, and intermitten cp x 3 days. Pt has pmhx of afib, HTN, HLD, CHF, and pre-D; he is noncompliant w/ all meds. Pt also has pmhx of neurogenic bladder and self-caths. Pt arrived to ED w/ HR 140's-150's and was and hypertensive SBP 160. Pt tx'd w/ metoprolol iv and po and 1L ivf's. Pt has bnp >6000. HR currently 120's. CXR +pna and tx'd w/ abx. Also pt was dx'd w/ prostate CA a few years ago and refused radiation; now CT shows mets. Pt aware.
--- NOTE | 2025-01-20 11:46 | PM.CNCAR ---
History of Present Illness History of Present Illness Date of Service: 01/20/25 Requesting physician: Nica Avila Chief complaint: ATRIAL FLUTTER Narrative: 69 year gentleman who we have been asked to see for atrial flutter. He is presenting with cough, fevers and chills. It appears he has prostate cancer and imaging is showing metastatic disease in the spine. He has history of cardiovascular disease and was supposed to be on amiodarone and apixaban. He is saying that he was following at [facility] with Cardiology previously. He has stopped all his medications over a year ago. He is saying that his [id number] is a radiologist and also he has other medical personnel who have advised him to stop anticoagulation because he does not needed. He is saying that he is short of breath. He is not agreeable to take any anticoagulation. We discussed about starting metoprolol and digoxin and he is somewhat agreeable for that. [facility] Past Medical History Medical History (Updated 01/20/25 @ 09:29 by SHAHEED Blake) 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) Anemia Lipoprotein deficiency Essential hypertension Pre-diabetes Hyperlipidemia Hypercholesterolemia Family History Family History Father Prostate cancer Lung cancer Surgical History Surgical History Previous back surgery Social History Social History Household Members: None Housing: House Unable to assess alcohol history related to: Unknown Alcohol intake: current Alcohol intake frequency: holidays/special occasions only Patient Tobacco Use Status: Former Tobacco user Tobacco use type: Cigarette Smoked in Last 30 Days: No e-Cigarette/Vaping Use: Never Used Use of substances other than those prescribed or required for medical reasons: Yes Substance Use Type: Marijuana Last Used Substance: Hours (ago) Advance Directives: No Advance Directives Information Provided: Yes service: Yes ([employer]) Current occupational status: retired Cognitive needs: No Hearing needs: No Vision needs: No Meds Allergies Allergy/AdvReac Type Severity Reaction Status Date / Time shellfish derived Allergy Anaphylaxis Verified 01/20/25 08:43 environmental allergies AdvReac Mild Sneezing Verified 01/20/25 08:43 Home Medications ?Medication ?Instructions ?Recorded ?Confirmed ?Last Taken ?Type amiodarone 200 mg tablet (Pacerone) 200 mg PO DAILY 03/15/22 11/08/22 Unknown History apixaban 5 mg tablet (Eliquis) 5 mg PO BID 03/15/22 11/08/22 Unknown History lisinopril 5 mg tablet 5 mg PO DAILY 03/15/22 11/08/22 Unknown History metoprolol succinate 100 mg 100 mg PO DAILY 03/15/22 11/08/22 Unknown History tablet,extended release 24 hr (Toprol XL) leuprolide acetate (6 month) 45 mg 45 mg subcut [id number] 10/28/22 11/08/22 Unknown History (6 month) subcutaneous syringe (Eligard) Physical Exam Vital Signs: Vital Signs: Last Vital Signs Temp 98.7 F 01/20/25 08:41 Pulse 122 H 01/20/25 11:29 Resp 16 01/20/25 11:29 BP 86/63 L 01/20/25 11:29 Pulse Ox 92 01/20/25 11:29 O2 Del Method Room Air 01/20/25 11:29 BMI result Body Mass Index 23.1 GENERAL APPEARANCE: In no acute distress. NECK: no carotid bruit, + + jugular venous distention. SKIN: no suspicious lesions, warm and dry. HEART: no murmurs, regular rate and rhythm. Tachycardic. LUNGS: Mild expiratory wheezes. ABDOMEN: soft, nontender. EXTREMITIES: no edema. PERIPHERAL PULSES: equal. NEUROLOGIC: No gross deficits, AAO X 3 Objective Labs and Meds 01/20/25 08:30 01/20/25 08:30 Lab results: Laboratory Results - last 24 hr 01/20/25 01/20/25 01/20/25 08:29 08:30 09:41 WBC 6.7 RBC 5.22 D Hgb 16.0 D Hct 47.3 D MCV 90.6 MCH 30.7 MCHC 33.8 RDW 13.9 Plt Count 184 MPV 12.2 Immature Gran % (Auto) 0.1 Neut % (Auto) 70.3 Lymph % (Auto) 20.4 Sunflower % (Auto) 7.3 Eos % (Auto) 1.2 Baso % (Auto) 0.7 Lymph # (Auto) 1.4 Sunflower # (Auto) 0.5 Eos # (Auto) 0.1 Baso # (Auto) 0.1 Abs Immat Gran (auto) 0.01 Absolute Neuts (auto) 4.7 Absolute Nucleated RBC 0.000 Nucleated RBC % (auto) 0.0 PT 12.3 INR 1.0 APTT 28.2 Sodium 140 Potassium 4.1 Chloride 109 H Carbon Dioxide 22 Anion Gap 13 BUN 25 H Creatinine 1.21 Estim Creat Clear Calc 62.0 Estimated GFR 59 Random Glucose 162 H Lactic Acid 2.4 H* Calcium 9.0 Magnesium 1.9 Total Bilirubin 1.5 H Direct Bilirubin 0.5 AST 34 ALT 41 H Alkaline Phosphatase 79 Troponin I High Sens 36.3 H 39.1 H NT-Pro-B Natriuret Pep 6072.4 H Total Protein 6.6 Albumin 4.2 TSH 1.53 Influenza Type A (PCR) NEGATIVE Influenza Type B (PCR) NEGATIVE RSV RNA Qual (PCR) NEGATIVE SARS-CoV-2 RNA (RT-PCR) NEGATIVE Imaging Radiologist's impression: Impressions Chest X-Ray 01/20/25 08:45 IMPRESSION: Cardiomegaly. Bibasilar atelectasis versus pneumonia. Probable small bilateral pleural effusions. Electronically signed by: David Mendez MD 01/20/2025 08:53 AM EST RP Chest CTA 01/20/25 09:52 IMPRESSION: 1. There is no evidence of pulmonary embolus. There is no aortic aneurysm. 2. There are findings in keeping with right heart failure, with moderate cardiomegaly, interstitial pulmonary edema, small to moderate-sized layering pleural effusions bilaterally, and contrast reflux into the hepatic IVC. 3. There are innumerable tiny sclerotic foci throughout the osseous structures in keeping with blastic metastatic disease. In addition there is a lytic lesion in T2, also suspicious. Electronically signed by: Олег Doyle MD 01/20/2025 10:30 AM EST RP Assessment and Plan (1) Atrial flutter: Status: Acute (2) CHF (congestive heart failure): Status: Acute Plan [age] year gentleman presenting with multiple complaints and has been noticed to be in atrial flutter with rapid ventricular response. He has not been taking any medications and it appears he was on Toprol-XL, Eliquis and amiodarone. He was following at [facility] previously. We do not have any records available currently. Clinically he is volume overloaded. His CT chest has shown no pulmonary embolism but did show changes consistent with right heart failure with moderate cardiomegaly, iylsu-op-zvuamwoe size layering pleural effusions bilaterally and contrast reflux into the hepatic IVC. Multiple sclerotic foci throughout the osseous structures. Lytic lesion T2. He has known history of prostate cancer and was not taking any treatment for that too. He is not agreeable for anticoagulation. His treatment is rate controlled at this stage and recommend 25 mg 3 times a day metoprolol orally and digoxin loading with 250 mcg every 4-6 hours x3. As blood pressure recovers start him on 20 mg IV Lasix to diurese him gently. Echocardiography to assess LV function. Sweats can be related to underlying cancer but an infective etiology should be ruled out in him. Recommend panculture and covering with antibiotics. Thank you for allowing me to participate in the care of your patient. Please feel free to contact me if you have any questions. Procedures Date of Service Date of Service: 01/20/25
[2025-01-20 11:47] LABS: Reflex Lactate? Lactic Acid Added
--- NOTE | 2025-01-20 12:14 | P.HPHOSP_ITS ---
<Statement entered by Radha Urbina MD - 01/21/25 11:20> Patient continues to have AFib with RVR with a rate in the 140s to 150s, started him on Lopressor 5 mg q.6 p.r.n. with parameters History of Present Illness Date of Service: 01/20/25 Chief Complaint: Shortness of breath 69-year-old man presented to the ER with complaints of worsening shortness of breath. Patient reported over the last week he has had increased shortness of breath with dyspnea especially with exertion but sometimes even at rest. Orthopnea. He also reported bilateral chest pain which he was unable to descriptively explain what type of pain it was but he did say that it would come and go lasting for hours sometimes. He did seem very vague during the interview and also very suspicious of medical care in general. He stated that he did not think that the numbers on the telemetry machine were actually correct when his heart rate was 120 she did not feel any palpitations. He denied fever, chills, nausea, vomiting, diarrhea, recent illness, sick contacts, recent travel. He does have a history of atrial fibrillation but reported he stopped taking his medication some time ago, likely months or more his he did not feel like they were helping him. Today patient presents with atrial flutter with rapid ventricular response and will looks to be acute congestive heart failure. Troponins were essentially flat, pro BNP 6072, total bili 1.5, lactic acid 2.4. Plan will be to admit patient for further management and treatment of atrial flutter with rapid ventricular response and acute congestive heart failure. 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) Anemia Lipoprotein deficiency Essential hypertension Pre-diabetes Hyperlipidemia Hypercholesterolemia Family History Father Prostate cancer Lung cancer Surgical History Previous back surgery Social History Household Members: None Housing: House Unable to assess alcohol history related to: Unknown Alcohol intake: current Alcohol intake frequency: holidays/special occasions only Patient Tobacco Use Status: Former Tobacco user Tobacco use type: Cigarette Smoked in Last 30 Days: No e-Cigarette/Vaping Use: Never Used Use of substances other than those prescribed or required for medical reasons: Yes Substance Use Type: Marijuana Last Used Substance: Hours (ago) Advance Directives: No Advance Directives Information Provided: Yes service: Yes ([employer]) Current occupational status: retired Cognitive needs: No Hearing needs: No Vision needs: No Meds Allergies Allergy/AdvReac Type Severity Reaction Status Date / Time shellfish derived Allergy Anaphylaxis Verified 01/20/25 08:43 environmental allergies AdvReac Mild Sneezing Verified 01/20/25 08:43 Active Medications: Current Medications Acetaminophen (Acetaminophen 325 Mg Tablet) 650 mg PO Q6H PRN PRN Reason: Pain, Mild 1-3,fever,headache Calcium Carbonate (Calcium Carbonate 750 Mg Tab.Chew) 750 mg PO Q4H PRN PRN Reason: Heartburn Magnesium Hydroxide (Milk Of Magnesia 30 Ml Oral.Susp) 30 ml PO DAILY PRN PRN Reason: Constipation Melatonin (Melatonin 3 Mg Tablet) 6 mg PO BEDTIME PRN PRN Reason: Insomnia Ondansetron HCl (Ondansetron Hcl 4 Mg/2 Ml Vial) 4 mg IVPUSH Q8H PRN PRN Reason: Nausea and Vomiting Sodium Chloride (0.9 % Sodium Chloride Flush 3 Ml Syringe) 3 [facility]USH [facility] Medications ?Medication ?Instructions ?Recorded ?Confirmed ?Last Taken ?Type lysine 1,000 mg tablet 1,000 mg PO DAILY 01/20/25 1 03/22/24 01/19/25 History kwkvzpaj-wpqoouwj-frv C 250 1 tab PO DAILY 01/20/2501/19/25 History mg-herbal no.124 11.66 mg chewable tablet (Airborne Gummy) Physical Exam 2 Vital Signs and Narrative: Vital Signs: Last Vital Signs Temp 98.7 F 01/20/25 08:41 Pulse 119 H 01/20/25 11:47 Resp 18 01/20/25 11:47 BP 103/77 01/20/25 11:47 Pulse Ox 98 01/20/25 11:47 O2 Del Method Room Air 01/20/25 11:47 BMI result Body Mass Index 23.1 Appearing in no acute distress head is normocephalic atraumatic eyes pupils are PERRLA sclera is anicteric mouth throat mucous membranes are intact and moist neck is supple no lymphadenopathy, no JVD noted lung sounds rales heart irregular positive bowel sounds, abdomen is soft, nontender neuro patient is alert x3, no focal deficits Results Labs 01/20/25 08:30 01/20/25 08:30 Labs: Laboratory Results - last 24 hr 01/20/25 01/20/25 01/20/25 08:29 08:30 09:41 MCV 90.6 MCH 30.7 MCHC 33.8 RDW 13.9 Plt Count 184 MPV 12.2 Immature Gran % (Auto) 0.1 Neut % (Auto) 70.3 Lymph % (Auto) 20.4 [place] % (Auto) 7.3 Eos % (Auto) 1.2 Baso % (Auto) 0.7 Lymph # (Auto) 1.4 [place] # (Auto) 0.5 Eos # (Auto) 0.1 Baso # (Auto) 0.1 Abs Immat Gran (auto) 0.01 Absolute Neuts (auto) 4.7 Absolute Nucleated RBC 0.000 Nucleated RBC % (auto) 0.0 PT 12.3 INR 1.0 APTT 28.2 Anion Gap 13 Estim Creat Clear Calc 62.0 Estimated GFR 59 Random Glucose 162 H Lactic Acid 2.4 H* Calcium 9.0 Magnesium 1.9 Total Bilirubin 1.5 H Direct Bilirubin 0.5 AST 34 ALT 41 H Alkaline Phosphatase 79 Troponin I High Sens 36.3 H 39.1 H NT-Pro-B Natriuret Pep 6072.4 H Total Protein 6.6 Albumin 4.2 TSH 1.53 Influenza Type A (PCR) NEGATIVE Influenza Type B (PCR) NEGATIVE RSV RNA Qual (PCR) NEGATIVE SARS-CoV-2 RNA (RT-PCR) NEGATIVE Imaging Radiologist's Impressions: Impressions Chest X-Ray 01/20/25 08:45 IMPRESSION: Cardiomegaly. Bibasilar atelectasis versus pneumonia. Probable small bilateral pleural effusions. Electronically signed by: David Mendez MD 01/20/2025 08:53 AM EST RP Chest CTA 01/20/25 09:52 IMPRESSION: 1. There is no evidence of pulmonary embolus. There is no aortic aneurysm. 2. There are findings in keeping with right heart failure, with moderate cardiomegaly, interstitial pulmonary edema, small to moderate-sized layering pleural effusions bilaterally, and contrast reflux into the hepatic IVC. 3. There are innumerable tiny sclerotic foci throughout the osseous structures in keeping with blastic metastatic disease. In addition there is a lytic lesion in T2, also suspicious. Electronically signed by: Олег Doyle MD 01/20/2025 10:30 AM EST RP Assessment and Plan (1) Essential hypertension: Status: Acute Plan 69-year-old man admitted with acute on chronic atrial flutter with rapid ventricular response and acute congestive heart failure. Incidentally chest CTA with findings of osseous structures possibly blastic metastatic disease. Acute on chronic atrial flutter with rapid ventricular response. Given digoxin, metoprolol in the ER Pro BNP 6072 Monitor on telemetry Cardiology consultation Patient reported that he will refuse to take blood thinners Start digoxin as per Cardiology IV Lasix 40 mg b.i.d. Daily weights Strict intake and output Transaminitis, mild Likely secondary to hepatic congestion from heart failure Elevated troponin Flat Likely secondary to congestive heart failure History of prostate cancer with incidental finding of possible bony Mets Oncology consultation DVT prophylaxis with Lovenox Full code Quality Stroke Does the patient have a stroke diagnosis?: No VTE Prior VTE?: No VTE Risk Level:: Medical - moderate - high VTE Device Contraindication: Treatment Not Indicated VTE Drug Contraindication: N/A - Med Ordered
[2025-01-20 12:15] LABS: ~Lactic Acid-LAB USE ONLY 2.0 mmol/L (0.5-2.0)
--- NOTE | 2025-01-20 13:00 | PHA.MEDREC ---
Addendum entered by Aníbal Soliz RPh 01/20/25 13:05: MED REC REVIEWED BY [facility] Original Note: Pharmacy Consult ? Medication Reconciliation Pharmacy has completed the medication reconciliation. Spoke with pt and he confirmed he is not taking any prescription medications at this time and is only taking Airborne once daily and L-Lysine 1000mg once daily at bedtime.
[2025-01-20] MEDS: 0.9 % Sodium Chloride Flush 3 ML SYRINGE IVFLUSH ×2 (17:30→20:34)
[2025-01-20] MEDS: Furosemide 40 MG/4 ML VIAL IVPUSH (18:59)
[2025-01-20 23:07] LABS: Appearance Urine Clear; Glucose Urine UA Negative (Negative); PH 6.5 (5.0-9.0); Specific Gravity - Urine 1.010 (1.005-1.025); UMIC TRIGGER UACC YES
[2025-01-20 23:12] LABS: UACC Culture Trigger YES
[2025-01-21] VITALS (7 sets, daily range): BP systolic 108–132; BP diastolic 58–76; PULSE 51–87; RESP 16–18; TEMP 36.2–37.1; O2SAT 92–97; BMI 23.0
--- NOTE | 2025-01-21 06:20 | PC.NURSE ---
Pt refused to take Eliquis 5mg this morning. Pt stated that his sister is a nurse and told him he does not need any blood thinner. He also stated he has not had any blood clots before so he is fine without it. This RN educated pt the need for Eliquis, but he kept refusing.
[2025-01-21 07:11] LABS: Hematocrit 45.5 % (42.0-52.0); Hemoglobin 15.3 g/dl (14.0-18.0); Mean Corpuscular HGB Conc 33.6 g/dl (31.0-36.0); Mean Corpuscular Hemoglobin 30.3 pg (27.0-33.0); Mean Corpuscular Volume 90.1 fL (80.0-98.0); NRBC Abs Auto 0.000 X10*3/uL (0.0-0.012); NRBC Pct Auto 0.0 /100WBC (0.0-0.2); Platelet Count 165 X10*3/uL (160-400); Red Blood Count 5.05 X10*6/uL (4.60-5.80); White Blood Count 6.8 X10*3/uL (4.8-10.8)
[2025-01-21 07:29] LABS: Alanine Aminotransferase 29 U/L (0-40); Albumin Level 3.6 g/dL (3.5-5.0); Alkaline Phosphatase 64 U/L (39-117); Anion Gap 13 (12-20); Aspartate Amino Transferase 26 U/L (5-37); Blood Urea Nitrogen 26 mg/dL (9-16); Calcium 8.5 mg/dL (8.4-10.2); Carbon Dioxide 25 mmol/L (22-29); Chloride 107 mmol/L (96-108); Creatinine Clr Calc Pharmacy 53.7; Estimated Glomerular Filt Rate 51; Magnesium 1.8 mg/dL (1.6-2.6); Potassium 4.0 mmol/L (3.3-5.1); Sodium 141 mmol/L (135-145); Total Protein 5.5 g/dL (6.5-8.0)
[2025-01-21] MEDS: 0.9 % Sodium Chloride Flush 3 ML SYRINGE IVFLUSH ×3 (08:54→21:12)
[2025-01-21] MEDS: Furosemide 40 MG/4 ML VIAL IVPUSH ×2 (08:54→17:36)
--- NOTE | 2025-01-21 09:51 | MHC.CM.PN ---
IMM 01/21/25, Pt. is independent, he does not use home health services or DME. PCP confirmed: Bereket Bower MD. HCP is his sister Cristina Chen. Pt. will need a ride home at [place], DCP: home, self care, CM to follow for DC needs.
--- NOTE | 2025-01-21 10:33 | PM.HEMONCCN ---
Subjective - Subjective Chief complaint: Shortness of breath Patient: known to practice within the last 3 years Consult date: 01/21/25 Primary Care Provider: Bereket Bower MD Reservations Sales Agent Utilized?: No - Kinyarwanda Speaking HPI - Consult Narrative Reason for consult: Bone metastasis Narrative: Anthony Maldonado is a 69 year old male with history of prostate cancer, atrial fibrillation who is admitted for congestive heart failure. He presented to ED with worsening shortness of breath and was found to be in atrial fibrillation with rapid ventricular response. Patient had stopped taking his heart medications for several months. He is being diuresed and started back on anticoagulation with Eliquis. Patient was diagnosed with prostate cancer in August 2022. PSA at diagnosis was 64 with a Kale score of 9. At that time staging bone scan was negative for osseous metastasis. Patient was started on bicalutamide and referred to radiation oncology at [facility]. Patient states that he decided not to undergo radiation therapy, he has not seen Dr. Leija either since 2022. At this time patient denies any other complaints such as back or pelvic pain. He also denies any constitutional symptoms such as fever, anorexia, or weight loss Review of Systems - Constitutional Reports as per [facility] Medical History: Medical History (Last Reviewed 01/20/25 @ 18:13 by Nahomy Craig RN) Anemia Essential hypertension Hypercholesterolemia Hyperlipidemia Lipoprotein deficiency 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) Pre-diabetes Prostate cancer Family History: Family History (Last Reviewed 10/17/22 @ 11:15 by Maye Caro) Father Prostate cancer Lung cancer Surgical History: Surgical History (Last Reviewed 01/20/25 @ 18:13 by Nahomy Craig RN) Previous back surgery Social History: Social History (Last Reviewed 10/17/22 @ 11:15 by Maye Caro) Living Situation History: Household Members: None Housing: House Do you presently have visiting nurse or other home services: No Alcohol History: Unable to assess alcohol history related to: Unknown Alcohol History Details: 1. How often do you have a drink containing alcohol?: a. Never AUDIT-C Alcohol total score: 0 Currently Displaying Signs/Symptoms of Alcohol Withdrawal: No Tobacco History: Patient Tobacco Use Status: Former Tobacco user Tobacco use type: Cigarette Smoked in Last 30 Days: No e-Cigarette/Vaping Use: Never Used Substance Use History: Use of substances other than those prescribed or required for medical reasons: Yes Substance Use Type: Marijuana Last Used Substance: Hours (ago) Currently Displaying Signs/Symptoms of Drug Intoxication Withdrawal: No Domestic Abuse History: Have you been hit, kicked, punched, or otherwise hurt by someone within the past year? If so, by whom?: No Do you feel safe in your current relationship?: No Current Relationship Is there a partner from a previous relationship who is making you feel unsafe now?: No Are you made to feel afraid or neglected: No Advance Directives: Advance Directives: No Advance Directives Information Provided: Yes Homicidal Assessment: Do you have a plan to hurt others: No Plan Nutrition Assessment: Recently lost weight without trying: No How much weight loss: Not applicable Eating poorly because of decreased appetite: No Nutrition screen score: 0 Nutrition Risks: No Nutritional Risk Poor oral hygiene: No Occupation Assessmet: service: No Current occupational status: retired Home Medications and Allergies Current Medications: Current Medications Acetaminophen (Acetaminophen 325 Mg Tablet) 650 mg PO Q6H PRN PRN Reason: Pain, Mild 1-3,fever,headache Apixaban (Apixaban 5 Mg Tablet) 5 mg PO BID@0700,1900 [facility] Last Admin: 01/21/25 06:19 Dose: Not Given Calcium Carbonate (Calcium Carbonate 750 Mg Tab.Chew) 750 mg PO Q4H PRN PRN Reason: Heartburn Furosemide (Furosemide 40 Mg/4 Ml Vial) 40 mg IVPUSH BID@0900,1800 [facility]; Protocol Last Admin: 01/21/25 08:54 Dose: 40 mg Magnesium Hydroxide (Milk Of Magnesia 30 Ml Oral.Susp) 30 ml PO DAILY PRN PRN Reason: Constipation Melatonin (Melatonin 3 Mg Tablet) 6 mg PO BEDTIME PRN PRN Reason: Insomnia Last Admin: 01/20/25 20:33 Dose: 6 mg Metoprolol Tartrate (Metoprolol Tartrate 5 Mg/5 Ml Vial) 5 mg IVPUSH Q6H PRN; Protocol PRN Reason: Heart Rate >100 Last Admin: 01/21/25 09:25 Dose: 5 mg Metoprolol Tartrate (Metoprolol Tartrate 25 Mg Tablet) 25 mg PO TID [facility]; Protocol Last Admin: 01/21/25 08:55 Dose: 25 mg Ondansetron HCl (Ondansetron Hcl 4 Mg/2 Ml Vial) 4 mg IVPUSH Q8H PRN PRN Reason: Nausea and Vomiting Sodium Chloride (0.9 % Sodium Chloride Flush 3 Ml Syringe) 3 ml IVFLUSH QSHIFT [facility] Last Admin: 01/21/25 08:54 Dose: 3 ml Valacyclovir HCl (Valacyclovir Hcl 1,000 Mg Tablet) 1,000 mg PO Q12H [facility] Home Medications ?Medication ?Instructions ?Recorded ?Confirmed ?Type lysine 1,000 mg tablet 1,000 mg PO DAILY 01/20/25 01/20/25 History iivcvlli-wsonosic-wxs C 250 1 tab PO DAILY 01/20/25 01/20/25 History mg-herbal no.124 11.66 mg chewable tablet (Airborne Gummy) Allergies Allergy/AdvReac Type Severity Reaction Status Date / Time shellfish derived Allergy Anaphylaxis Verified 01/20/25 08:43 environmental allergies AdvReac Mild Sneezing Verified 01/20/25 08:43 Physical Exam Vital signs: Vital Signs Temp 98.0 F 01/21/25 10:24 Pulse 82 01/21/25 10:24 Resp 18 01/21/25 10:24 BP 112/68 01/21/25 10:24 Pulse Ox 97 01/21/25 10:24 O2 Del Method Room Air 01/21/25 10:24 Intake & Output 01/20/25 01/21/25 01/21/25 18:59 06:59 18:59 Intake Total 1300 / 1300 Output Total 2500 / 2500 Balance 1300 / -1200 -2500 / -1200 Urine Output (Average ml/kg/hr) 2.71 Intake: Intake, IV Amount 1300 / 1300 Azithromycin 500 mg In 0.9 % 250 / 250 Sodium Chloride 250 ml @ 125 mls/hr IV ONCE ONE Rx#: [id number] Lactated Ringers 1,000 ml @ 999 1000 / 1000 mls/hr IV .Q1H1M [facility] Rx#: [id number] cefTRIAXone sodium 1 gm In 0.9 50 / 50 % Sodium Chloride 50 ml @ 100 mls/hr IV ONCE ONE Rx#: [id number] Output: Output, Urine Amount 2500 / 2500 Other: Number of Unmeasured Voids 1 Urine stray cath Urine Color Yellow Last Bowel Movement 01/19/25 01/20/25 Weight 76.8 kg 76.8 kg Weight 76.8 kg - Constitutional Present: no acute distress - Routine HEENT Exam Head: Present: normal inspection Eye: Present: EOMI - Routine Neck Exam Present: supple. Absent: lymphadenopathy - Routine Respiratory Exam Absent: accessory muscle use - Routine Cardiovascular Exam Cardiovascular: Present: S1, S2 Hem/Onc Consult Result - Labs CBC & Chem 7: 01/21/25 06:52 01/21/25 06:52 Labs: Short CBC 01/21/25 Range/Units 06:52 WBC 6.8 (4.8-10.8) X10*3/uL Hgb 15.3 (14.0-18.0) g/dl Hct 45.5 (42.0-52.0) % Plt Count 165 (160-400) X10*3/uL BMP 01/21/25 06:52 Sodium 141 Potassium 4.0 Chloride 107 Carbon Dioxide 25 BUN 26 H Creatinine 1.39 Calcium 8.5 Liver Function 01/21/25 Range/Units 06:52 Total Bilirubin 0.9 (0.0-1.0) mg/dL AST 26 (5-37) U/L ALT 29 (0-40) U/L Alkaline Phosphatase 64 (39-117) U/L Albumin 3.6 (3.5-5.0) g/dL Urine 01/20/25 Range/Units 20:14 Urine Color Yellow Urine Appearance Clear Urine pH 6.5 (5.0-9.0) Ur Specific [place] 1.010 (1.005-1.025) Urine Protein Negative (Neg-Trace) mg/dL Urine Glucose (UA) Negative (Negative) mg/dL Assessment and Plan Patient Active problem list reviewed?: Yes (1) Prostate cancer Status: Chronic Assessment and plan: 1. This is a 69-year-old male with past medical history significant for prostate cancer in atrial fibrillation who is admitted for congestive heart failure. Patient was diagnosed with prostate cancer in August 2022. PSA at diagnosis was 64 with a Clune score of 9. At that time staging bone scan was negative for osseous metastasis. Patient was started on bicalutamide and referred to radiation oncology at [facility]. Patient states that he decided not to undergo radiation therapy, he has not seen Dr. Leija either since 2022. At this time patient denies any other complaints such as back or pelvic pain. He also denies any constitutional symptoms such as fever, anorexia, or weight loss. CT angiogram chest performed 01/20/2025 demonstrated innumerable sclerotic foci throughout the osseous structures in keeping with blastic metastatic disease. Lytic lesion in T2 was read as suspicious. I discussed above findings with the patient and explained to him that this raises concern for metastatic prostate cancer. This would still be amenable for treatment with good outcome. He will need PSA testing, bone scan or PSMA PET scan to complete staging workup. He will be a candidate for systemic therapy with combination of ADT plus androgen receptor signaling inhibitor. If he has high volume disease, chemotherapy is also an option. I have explained this to the patient and advised him to follow up upon discharge as at this time he did not express any interest in pursuing treatment. Thank you for the consultation. - Time Spent With Patient Time Spent with Patient (in minutes): 30 Additional Coding: - Additional E/M codes Complex E/M visit Add On: CPT G2211
--- NOTE | 2025-01-21 13:36 | HO.WOUND ---
Wound Consult: Initial 69 yr old male admitted to [facility] [place] on 01/20/25 - See progress notes and H&P for detailed history. Wound consult placed for shingles. Patient agreeable to assessment and photo documentation. Patient reports rash started about 6 weeks ago and he has completed treatment for shingles but reports still having pain to back and abdominal area. Upon assessment, all lesions are dry, one small scab noted to back, no blistering remains. Left abdomen Left back Etiology: shingles Wound Bed: dry hyperpigmented skin - one small dry scab noted to left back Drainage / Odor: none Edges: ? irregular Lilian wound: ? No Induration, Fluctuance or Warmth noted Pain: yes Goals of Treatment: ? leave open to air as lesions/blisters have all crusted/healed Recommendations: leave open to air as lesions/blisters have all crusted/healed Re-consult wound care Nurse for wound deterioration or wound changes.
--- NOTE | 2025-01-21 16:00 | CA_ITS ---
Transthoracic Echocardiogram Patient (Last, First, Middle): Anthony Maldonado, Gender: Male Date of : 1955 Age: 69 Procedure Date: 01/21/2025 Procedure Type: Transthoracic Echocardiogram Location: ER Height: 182. cm Weight: 77.11 kg BSA: 1.98 m2 Heart Rate: 122 bpm BP: 103 / 77 mmHg Software Engineer Advisor: MEGHAN Referring MD: Tammy Aburto NP Symptoms: chf Study Quality: Adequate ECG Rhythm: Atrial flutter Conclusions: - Normal left ventricular cavity size. There is mildly increased left ventricular wall thickness. The left ventricular systolic function is moderate to severely decreased. The visually estimated ejection fraction is between 25-30%. - Mildly increased right ventricular cavity size. There is normal right ventricular systolic function. - The left atrium is moderately dilated. The right atrium is severely dilated. - Normal right atrial pressure. Findings Left Ventricle Normal left ventricular cavity size. There is mildly increased left ventricular wall thickness. The left ventricular systolic function is moderate to severely decreased. The visually estimated ejection fraction is between 25-30%. Diastolic function is indeterminate on the basis of available data. Right Ventricle Mildly increased right ventricular cavity size. There is normal right ventricular systolic function. Atria The left atrium is moderately dilated. The right atrium is severely dilated. Aortic Valve There is a normal trileaflet aortic valve. There is mild calcification of the aortic valve. There is no aortic valve stenosis. There is no aortic valve regurgitation. Mitral Valve The mitral valve appears normal. There is no mitral valve regurgitation. There is no mitral valve stenosis. Pulmonic Valve The pulmonic valve is likely normal. There is no pulmonic valve regurgitation. Tricuspid Valve Normal tricuspid valve structure. There is trace tricuspid valve regurgitation. Tricuspid regurgitation envelope is inadequate for calculation of right ventricular systolic pressure. Normal right atrial pressure. Great Vessels All visible segments of the aorta are normal in size. Venous The inferior vena cava is normal in size and collapses greater than 50% with inspiration. Pericardium/Pleural There is no evidence of pericardial effusion. Prior Study Comparison No prior study available for comparison. Measurements 2D Linear Measurements IVSd: 0.97 0.6-0.9/0.6-1.0 cm LVIDd: 5.42 3.9-5.3/4.2-5.9 cm LVIDd Index: 2.74 2.4-3.2/2.2-3.1 cm/m2 LVIDs: 4.71 2.0-3.6 cm LVPWd: 1.13 0.7-1.1 cm LA Diam: 3.70 2.7-3.8/3.0-4.0 cm LAIDs Index: 1.87 1.5-2.3 cm/m2 LV Mass: 277.03 67-162/88-224 g LV Mass Index: 139.92 43-95/49-115 g/m2 LVOT Diam: 2.40 3.0+(-)1.3 cm 2D Systolic Function EF 4C: 16.60 >55% EF 2C: 8.16 >55% EF BiP: 10.30 >55% Mitral Valve MV Pk E: 0.73 MV Decel Time: 254.00 E'Lateral: 11.80 E'Medial: 5.66 E/E' Med: 12.90 E/E' Lat: 6.20 PHT: 74.00 MVA PHT: 2.97 Decel [place]: 2.93 Aortic Valve AoV Pk Markos: 1.41 AoV Mn Markos: 1.01 AoV VTI: 0.25 AoV Pk Grad: 8.00 Aov Mn Grad: 5.00 GISEL Cont.VTI: 2.99 LVOT LVOT Pk Markos: 0.97 LVOT Mn Markos: 0.73 LVOT VTI: 0.17 LVOT Pk Grad: 4.00 LVOT Mn Grad: 2.00 LVOT Diam: 2.40 LVOT Area: 4.52 Diastolic Function MV Pk E: 0.73 E'Medial: 5.66 E/E' Med: 12.90 E' Laterial: 11.80 E/E' Lat: 6.20 Right Ventricle TAPSE (mm): 17.20 TVS' Markos: 13.50 Tricuspid Valve TR Pk Markos: 2.03 TR Pk Grad: 16.00 RA Press: 3.00 RVSP: 19.00 Great Vessels Aorta Sinus of Valsalva: 3.70 2.0-3.5 cm Ao Asc: 3.30 2.1-3.4 cm Pulmonary Valve PV Pk Markos: 0.73 Peak PV Grad: 2.00 Updated in Other Vendor System with Status of Final Yomi Cueto MD electronically signed on 01/22/2025 10:59:29 AM with status of Final
--- NOTE | 2025-01-21 16:45 | P.PNIM_ITS ---
Subjective Subjective Date of Service: 01/21/25 Interval History: No new complaints or issues today. He reports intermittent palpitations and intermittent shortness of breath, however overall significantly improved compared to yesterday. Endorses some persistent left-sided spasm around the abdomen; intermittently worse with movement. Hematology oncology recommendations greatly appreciated Review of Systems Review of Systems: Yes all other systems are reviewed and are negative Physical Exam 2 Exam: Exam: General: A&O x3, oriented to time place person and situation, comfortable, no pain Cardiac: S1, S2 auscultated with no S3/4, no MRG. Well perfused. Respiratory: Normal breath sounds auscultated throughout all lung zones, without wheezing, rales. Normal rate. GI/ : No abdominal pain on palpation, no masses or distentions. MSK: Normal ambulation without pain at bony prominences or musculature Neurological: Normal neurological examination on overview, without obvious CN II-XII abnormalities. Vital Signs: Vital Signs: Last Vital Signs Temp 98.2 F 01/21/25 15:35 Pulse 62 01/21/25 15:35 Resp 18 01/21/25 15:35 BP 108/68 01/21/25 15:35 Pulse Ox 96 01/21/25 15:35 O2 Del Method Room Air 01/21/25 15:35 BMI result Body Mass Index 23.0 Objective Data Active Medications Acetaminophen (Acetaminophen 325 Mg Tablet) 650 mg PO Q6H PRN PRN Reason: Pain, Mild 1-3,fever,headache Apixaban (Apixaban 5 Mg Tablet) 5 mg PO BID@0700,1900 [facility] Last Admin: 01/21/25 06:19 Dose: Not Given Documented By: GURDEEP Non-Admin Reason: Patient Refused Calcium Carbonate (Calcium Carbonate 750 Mg Tab.Chew) 750 mg PO Q4H PRN PRN Reason: Heartburn Furosemide (Furosemide 40 Mg/4 Ml Vial) 40 mg IVPUSH BID@0900,1800 [facility]; Protocol Last Admin: 01/21/25 08:54 Dose: 40 mg Documented By: JENSEN Magnesium Hydroxide (Milk Of Magnesia 30 Ml Oral.Susp) 30 ml PO DAILY PRN PRN Reason: Constipation Melatonin (Melatonin 3 Mg Tablet) 6 mg PO BEDTIME PRN PRN Reason: Insomnia Last Admin: 01/20/25 20:33 Dose: 6 mg Documented By: GURDEEP Metoprolol Tartrate (Metoprolol Tartrate 5 Mg/5 Ml Vial) 5 mg IVPUSH Q6H PRN; Protocol PRN Reason: Heart Rate >100 Last Admin: 01/21/25 09:25 Dose: 5 mg Documented By: JENSEN Metoprolol Tartrate (Metoprolol Tartrate 25 Mg Tablet) 25 mg PO TID [facility]; Protocol Last Admin: 01/21/25 14:43 Dose: 25 mg Documented By: JENSEN Ondansetron HCl (Ondansetron Hcl 4 Mg/2 Ml Vial) 4 mg IVPUSH Q8H PRN PRN Reason: Nausea and Vomiting Sodium Chloride (0.9 % Sodium Chloride Flush 3 Ml Syringe) 3 ml IVFLUSH QSHIFT [facility] Last Admin: 01/21/25 08:54 Dose: 3 ml Documented By: JENSEN Valacyclovir HCl (Valacyclovir Hcl 1,000 Mg Tablet) 1,000 mg PO Q12H [facility] Last Admin: 01/21/25 11:25 Dose: 1,000 mg Documented By: JENSEN Labs 01/21/25 06:52 01/21/25 06:52 Labs: Laboratory Results - last 24 hr 01/20/25 01/21/25 20:14 06:52 MCV 90.1 MCH 30.3 MCHC 33.6 RDW 13.9 Plt Count 165 MPV 12.2 Absolute Nucleated RBC 0.000 Nucleated RBC % (auto) 0.0 Anion Gap 13 Estim Creat Clear Calc 53.7 Estimated GFR 51 Random Glucose 111 Calcium 8.5 Magnesium 1.8 Total Bilirubin 0.9 AST 26 ALT 29 Alkaline Phosphatase 64 Total Protein 5.5 L Albumin 3.6 Urine Color Yellow Urine Appearance Clear Urine pH 6.5 Ur Specific [place] 1.010 Urine Protein Negative Urine Glucose (UA) Negative Urine Ketones Negative Urine Blood Negative Urine Nitrite Negative Ur Leukocyte Esterase Small (1+) H Urine RBC 0-2 Urine WBC 11-20 H Ur Squamous Epith Cells 0-2 Urine Bacteria None Seen Hyaline Casts 0-2 Microbiology Microbiology Results: Microbiology 01/20/25 09:41 Blood Culture - Preliminary Blood - Venous No growth after 24 hours. 01/20/25 09:41 Blood Culture - Preliminary Blood - Venous No growth after 24 hours. Assessment and Plan (1) Essential hypertension: Status: Acute (2) CHF (congestive heart failure): Status: Acute (3) Atrial fibrillation: Status: Acute (4) Atrial flutter with rapid ventricular response: Status: Acute (5) Pre-diabetes: Status: Acute (6) Urinary retention: Status: Acute (7) Elevated PSA: Status: Acute (8) Hypotonic neurogenic bladder: Status: Acute (9) Prostate cancer: Status: Chronic (10) Bilateral pleural effusion: Status: Acute Plan 69-year-old man with a background history of prediabetes, HTN, HLD, prostate cancer, presents admitted with acute on chronic atrial flutter with rapid ventricular response and acute congestive heart failure, c/b incidental findings of possible blastic metastatic disease on CTA chest. Acute on chronic atrial flutter with rapid ventricular response Given digoxin, metoprolol in the ER Pro BNP 6072 Monitor on telemetry Cardiology consultation Patient reported that he will refuse to take blood thinners Start digoxin as per Cardiology IV Lasix 40 mg b.i.d. Daily weights Strict intake and output Type 2 demand NSTEMI Elevated troponin - Flat/ plateau Likely secondary to congestive heart failure with AFib RVR Transaminitis, mild Likely secondary to hepatic congestion from CHF exacerbation/AFib RVR Given prostate cancer with a possible bony metastasis, should evaluate for possible hepatic metastasis CT abdomen and pelvis ordered History of prostate cancer with incidental finding of possible bony mets Identified on CTA chest incidentally with possible blastic metastatic disease Oncology consultation - recommendations are greatly appreciated Clinical picture consistent with possible prostate cancer with metastasis History of recent shingles Unidermatomal around the left lateral aspect of the thorax - dermatome T5/T6. Few remaining lesions all crusted over, not infectious at this time No need for intervention medically QUALITY METRICS - VTE: Enoxaparin - CODE STATUS: Full code - DIET: Cardiac Total time managing care of this patient today: 45 minutes. Quality Stroke Does the patient have a stroke diagnosis?: No VTE Prior VTE?: No VTE Risk Level:: Medical - moderate - high VTE Device Contraindication: Treatment Not Indicated VTE Drug Contraindication: N/A - Med Ordered
--- NOTE | 2025-01-21 17:57 | PC.NURSE ---
Patient refuse to take eliquis @ 1800 ,patient stated tell the Dr to take that off the list . aware
[2025-01-21] MEDS: iohexoL 350 MG/ML 100 ML INFUS..BTL IV (19:23)
[2025-01-22 03:30] VITALS: BP 117/68; PULSE 75; RESP 18; TEMP 36.1; O2SAT 95
[2025-01-22 06:22] LABS: MANUAL DIFF FLAG NO
[2025-01-22 06:26] LABS: Hematocrit 48.0 % (42.0-52.0); Hemoglobin 16.4 g/dl (14.0-18.0); Imm Gran Abs Auto 0.01 X10*3/uL (0.00-0.03); Imm Gran Pct Auto 0.2 % (0.0-0.4); Lymphocytes Absolute Auto 1.6 X10*3/uL (1.2-4.9); Mean Corpuscular HGB Conc 34.2 g/dl (31.0-36.0); Mean Corpuscular Hemoglobin 30.5 pg (27.0-33.0); Mean Corpuscular Volume 89.2 fL (80.0-98.0); NRBC Abs Auto 0.000 X10*3/uL (0.0-0.012); NRBC Pct Auto 0.0 /100WBC (0.0-0.2); Platelet Count 174 X10*3/uL (160-400); Red Blood Count 5.38 X10*6/uL (4.60-5.80); White Blood Count 5.8 X10*3/uL (4.8-10.8)
[2025-01-22 06:37] LABS: Alanine Aminotransferase 27 U/L (0-40); Albumin Level 3.9 g/dL (3.5-5.0); Alkaline Phosphatase 70 U/L (39-117); Anion Gap 14 (12-20); Aspartate Amino Transferase 23 U/L (5-37); Blood Urea Nitrogen 26 mg/dL (9-16); Calcium 8.7 mg/dL (8.4-10.2); Carbon Dioxide 27 mmol/L (22-29); Chloride 105 mmol/L (96-108); Creatinine Clr Calc Pharmacy 46.0; Estimated Glomerular Filt Rate 42; Magnesium 1.9 mg/dL (1.6-2.6); Potassium 4.0 mmol/L (3.3-5.1); Sodium 142 mmol/L (135-145); Total Protein 6.0 g/dL (6.5-8.0)
[2025-01-22 07:44] VITALS: BP 135/84; PULSE 76; RESP 18; TEMP 36.3; O2SAT 95
[2025-01-22] MEDS: 0.9 % Sodium Chloride Flush 3 ML SYRINGE IVFLUSH (11:13)
[2025-01-22 11:51] VITALS: BP 115/74; PULSE 108; RESP 18; TEMP 36.6; O2SAT 94
--- NOTE | 2025-01-22 13:08 | P.PNCA_ITS ---
Subjective Subjective Date of Service: 01/22/25 Interval history: Seen and examined at bedside. Continues to be in atrial flutter. Heart rate mostly controlled. Physical Exam Vital Signs: Last Vital Signs Temp 97.9 F 01/22/25 11:51 Pulse 108 H 01/22/25 11:51 Resp 18 01/22/25 11:51 BP 115/74 01/22/25 11:51 Pulse Ox 94 01/22/25 11:51 O2 Del Method Room Air 01/22/25 11:51 BMI result Body Mass Index 23.0 GENERAL APPEARANCE: In no acute distress. NECK: no carotid bruit, + jugular venous distention. SKIN: no suspicious lesions, warm and dry. HEART: no murmurs, irregular rate and rhythm. Tachycardic. LUNGS: Clear to auscultation. ABDOMEN: soft, nontender. EXTREMITIES: no edema. PERIPHERAL PULSES: equal. NEUROLOGIC: No gross deficits, AAO X 3 Objective Labs and Meds 01/22/25 06:15 01/22/25 06:15 Lab results: Laboratory Results - last 24 hr 01/22/25 06:15 WBC 5.8 RBC 5.38 Hgb 16.4 Hct 48.0 MCV 89.2 MCH 30.5 MCHC 34.2 RDW 13.6 Plt Count 174 MPV 11.8 Immature Gran % (Auto) 0.2 Neut % (Auto) 56.9 Lymph % (Auto) 28.4 Lamb % (Auto) 11.4 H Eos % (Auto) 2.4 Baso % (Auto) 0.7 Lymph # (Auto) 1.6 Lamb # (Auto) 0.7 Eos # (Auto) 0.1 Baso # (Auto) 0.0 Abs Immat Gran (auto) 0.01 Absolute Neuts (auto) 3.3 Absolute Nucleated RBC 0.000 Nucleated RBC % (auto) 0.0 Sodium 142 Potassium 4.0 Chloride 105 Carbon Dioxide 27 Anion Gap 14 BUN 26 H Creatinine 1.62 H Estim Creat Clear Calc 46.0 Estimated GFR 42 Random Glucose 123 H Calcium 8.7 Magnesium 1.9 Total Bilirubin 0.9 AST 23 ALT 27 Alkaline Phosphatase 70 Total Protein 6.0 L Albumin 3.9 Progress Note: A&P Assessment and plan (1) Atrial flutter: Status: Acute (2) CHF (congestive heart failure): Status: Acute (3) Cardiomyopathy: Status: Acute Plan 69 year gentleman with prostate cancer and 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 He presented after stopping all his medications for approximately 1 year and recent varicella zoster episode. He was noticed to be in atrial flutter and in congestive heart failure. Echocardiography has shown [id number] LV dysfunction with EF 25-30%. He has been rate controlled. He was not agreeable for anticoagulation but subsequently agreed. He is still quite skeptical about taking any medications or procedures. I had a detailed discussion with his sister Anamika Chen ([phone]) who is a nurse. I have explained to her that Anthony has severe cardiomyopathy likely related to atrial flutter. He has to take medications consistently and showed that he will take anticoagulation and then he can be considered for cardioversion down the line. 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 Clinically appears to be more less euvolemic at this stage. Stop the diuretics. Can be started on 20 mg of Lasix from tomorrow. Anticoagulation with the Eliquis. Changed to Toprol-XL 50 mg daily. Thank you for allowing me to participate in the care of your patient. Please feel free to contact me if you have any questions. Time Spent With Patient Time: Total time managing care of this patient today ____ minutes. Progress Note: Quality Stroke Does the patient have a stroke diagnosis?: No Procedures Date of Service Date of Service: 01/22/25
--- NOTE | 2025-01-22 14:57 | PM.DS ---
DS: Providers Provider Date of Service: 01/22/25 Date of admission: 01/20/25 12:12 Date of discharge: 01/22/25 Primary care physician: Bereket Bower MD Consults: 01/20/25 11:15 Consult to Cardiology Stat Consulting Provider: [facility] Reason for consultation: rapid aflutter, acute CHF Has provider been notified: Yes 01/20/25 12:11 Consult to Cardiology Routine Consulting Provider: [facility] Reason for consultation: afib rvr 01/20/25 14:37 Consult to Hematology / Oncology Routine Consulting Provider: [facility] Oncology/Hematology Reason for consultation: History of prostate cancer with question of bony Mets 01/21/25 09:58 Consult to Wound Care Routine Consulting Provider: [facility] Wound Care Management Reason for consultation: shingles DS: Diagnosis Discharge Diagnosis (1) Atrial flutter: Status: Acute (2) CHF (congestive heart failure): Status: Acute (3) Cardiomyopathy: Status: Acute DS: Summary Hospital Course Hospital Course: 69-year-old man with a background history of prediabetes, HTN, HLD, prostate cancer, presents admitted with acute on chronic atrial flutter with rapid ventricular response and acute congestive heart failure, c/b incidental findings of possible blastic metastatic disease on CTA chest. Acute on chronic atrial flutter with rapid ventricular response CHFrEF 25-30% Given digoxin, metoprolol in the ER Pro BNP 6072 Was diuresed with 40 mg IV furosemide with success to euvolemia Monitor on telemetry Cardiology consultation placed-recommendations greatly appreciated. The patient has significant LVEF dysfunction moderate-severe. Recommendations by Cardiology as to place the patient on digoxin, metoprolol, apixaban, furosemide. Extensive discussion with the patient regarding medication regimen that was suggested; unfortunately, the patient refused the majority of medications citing that they cause ?immune dysfunction . Extensive discussion counseling patient regarding objective benefits and side effects of medication. Ultimately, the patient can make his own medical decisions; despite them being against his best interest. Informed the patient I would be prescribing the medications recommended by Cardiology, and it is the patient's choice if he wishes to take them. PLAN - digoxin - metoprolol - apixaban - furosemide 20 mg OD p.o. - Daily weights - Strict intake and output - Cardiac diet - follow up outpatient Cardiology within 1-2 weeks of discharge - BMP within 1 week of discharge Type 2 demand NSTEMI Elevated troponin - Flat/ plateau Likely secondary to congestive heart failure with AFib RVR Transaminitis, mild Likely secondary to hepatic congestion from CHF exacerbation/AFib RVR Given prostate cancer with a possible bony metastasis, should evaluate for possible hepatic metastasis CT abdomen and pelvis ordered History of prostate cancer with incidental finding of possible bony mets Identified on CTA chest incidentally with possible blastic metastatic disease Oncology consultation - recommendations are greatly appreciated Clinical picture consistent with possible prostate cancer with metastasis History of recent shingles Unidermatomal around the left lateral aspect of the thorax - dermatome T5/T6. Few remaining lesions all crusted over, not infectious at this time No need for intervention medically Status at Discharge Cognitive/behavioral status at discharge: Alert and oriented to person place and time and situation. The patient demonstrates capacity to make his own medical decisions Functional status at discharge: independent ambulation Overall status at discharge: patient is back to baseline Time Attestation Total time managing care of this patient today: 45 mintues. Discharge Coordination Time (in mins): 35 Quality: Safe Use of Opioids Does Pt have an Active Cancer Diagnosis on the Problem List?: No Quality: Stroke Does the patient have a stroke diagnosis?: No Physical Exam Exam: Exam: General: A&O x3, oriented to time place person and situation, comfortable, no pain Cardiac: S1, S2 auscultated with no S3/4, no MRG. Well perfused. Respiratory: Normal breath sounds auscultated throughout all lung zones, without wheezing, rales. Normal rate. GI/ : No abdominal pain on palpation, no masses or distentions. MSK: Normal ambulation without pain at bony prominences or musculature Neurological: Normal neurological examination on overview, without obvious CN II-XII abnormalities. Vital Signs: Vital Signs: Last Vital Signs Temp 97.9 F 01/22/25 11:51 Pulse 108 H 01/22/25 11:51 Resp 18 01/22/25 11:51 BP 115/74 01/22/25 11:51 Pulse Ox 94 01/22/25 11:51 O2 Del Method Room Air 01/22/25 11:51 BMI result Body Mass Index 23.0 DS: Data Data Completed and Pending Labs on day of discharge: Laboratory Results - last 24 hr 01/22/25 06:15 WBC 5.8 RBC 5.38 Hgb 16.4 Hct 48.0 MCV 89.2 MCH 30.5 MCHC 34.2 RDW 13.6 Plt Count 174 MPV 11.8 Immature Gran % (Auto) 0.2 Neut % (Auto) 56.9 Lymph % (Auto) 28.4 [place] % (Auto) 11.4 H Eos % (Auto) 2.4 Baso % (Auto) 0.7 Lymph # (Auto) 1.6 [place] # (Auto) 0.7 Eos # (Auto) 0.1 Baso # (Auto) 0.0 Abs Immat Gran (auto) 0.01 Absolute Neuts (auto) 3.3 Absolute Nucleated RBC 0.000 Nucleated RBC % (auto) 0.0 Sodium 142 Potassium 4.0 Chloride 105 Carbon Dioxide 27 Anion Gap 14 BUN 26 H Creatinine 1.62 H Estim Creat Clear Calc 46.0 Estimated GFR 42 Random Glucose 123 H Calcium 8.7 Magnesium 1.9 Total Bilirubin 0.9 AST 23 ALT 27 Alkaline Phosphatase 70 Total Protein 6.0 L Albumin 3.9 Preliminary micro results at discharge 01/20/25 09:41 Blood Culture - Preliminary Blood - Venous No growth after 48 hours. 01/20/25 09:41 Blood Culture - Preliminary Blood - Venous No growth after 48 hours. 01/20/25 Unknown Urine Culture - Preliminary Urine Catheterized Staphylococcus species Discharge Plan Discharge Anticipated Discharge Date/Time: 01/22/25 15:03 Patient Disposition: Home, Self-Care Discharge Diagnosis: AFib RVR in the setting of acute CHF exacerbation reduced ejection fraction 25-30% Referrals: Bereket Bower MD [Primary Care Provider, Internal Medicine] - 1 Week Discharge Medications: New Eliquis 5 mg Tablet 5 mg PO BID@0700,1900 30 Days Qty: 60 0RF furosemide [Lasix] 20 mg tablet 20 mg PO DAILY 30 Days Qty: 30 0RF metoprolol succinate 50 mg tablet extended release 24 hr 50 mg PO DAILY 30 Days Qty: 30 0RF digoxin 125 mcg (0.125 mg) tablet 125 mcg PO DAILY 30 Days Qty: 30 0RF Continued lysine [L-Lysine] 1,000 mg Tablet 1,000 mg PO DAILY Airborne Gummy 250-11.66 mg Tablet,Chewable 1 tab PO DAILY Discharge Orders: Discharge Order (Routine); Ordered 01/22/25 Ordered By: Naina Pena Diet: Advance to usual diet Activity on Discharge: As tolerated Stand Alone Forms: Patient Portal Discharge page Print Language: Cymraes Other Ambulatory Orders: Digoxin (Routine) Timeframe: 3 Days Facility: [facility] - Location: Laboratory Ordered By: Naina Pena Care Plan Goals: As above Health Concerns: As above Plan of Treatment: FU Cardiology in 1 week FU PCP within 1 week of discharge Bloodwork in 3 days Assessment: Haemodynamically stable for discharge home
--- NOTE | 2025-01-22 15:00 | MHC.CM.PN ---
pt. has been medically cleared, he will go home via [facility], plan is self care.
== END 2025-01-22 15:32 | disposition home or self-care (01) | DRG 280 ==
LOC: HO.ED 11:51 → HO.EDOVER 12:19 → HO.IMC 17:00
PROVIDERS: Physician Assistant; Student in an Organized Health Care Education/Training Program; Admitting Provider Nurse Practitioner Acute Care; Emergency Provider Emergency Medicine; PCP Family Medicine; Visit Provider Hospitalist
DX: I48.92 Unspecified atrial flutter (principal); I50.23 Acute on chronic systolic (congestive) heart failure; I21.A1 Myocardial infarction type 2; C79.51 Secondary malignant neoplasm of bone; C61 Malignant neoplasm of prostate; N31.9 Neuromuscular dysfunction of bladder, unspecified; I11.0 Hypertensive heart disease with heart failure; I42.9 Cardiomyopathy, unspecified; Z20.822 Contact with and (suspected) exposure to COVID-19; Z91.148 Patient's other noncompliance with medication regimen for other reason; Z87.891 Personal history of nicotine dependence; Z79.01 Long term (current) use of anticoagulants; Z79.899 Other long term (current) drug therapy
CPT/HCPCS: 36415; 71045; 71275; 74177; 80048; 80053; 80076; 81001; 81003; 83605; 83735; 83880; 84443; 84484; 85025; 85027; 85610; 85730; 87040; 87086; 87088; 87186; 87637; 93005; 93306; 99285; J0456; J0616; J0696; J1160; J1938; J7120; Q9957; Q9967

== ENCOUNTER → 2025-01-20 08:14 | Outpatient (BNV) | payer MEDICARE, SELFPAY | PROVIDERS: Emergency Provider Emergency Medicine; PCP Family Medicine; Visit Provider Radiology Diagnostic Radiology | DX: J90 Pleural effusion, not elsewhere classified (principal); J81.0 Acute pulmonary edema; I51.7 Cardiomegaly | CPT/HCPCS: 71045; 71275 ==

== ENCOUNTER → 2025-01-20 08:51 | Outpatient (BNV) | payer MEDICARE, SELFPAY | PROVIDERS: Emergency Provider Emergency Medicine; PCP Family Medicine; Visit Provider Internal Medicine Cardiovascular Disease | DX: I48.92 Unspecified atrial flutter (principal); I50.9 Heart failure, unspecified; I42.9 Cardiomyopathy, unspecified | CPT/HCPCS: 99233 ==

== ENCOUNTER 2025-01-20 12:12 | Outpatient (BNV) | payer MEDICARE, SELFPAY | END 2025-01-21 19:17 | PROVIDERS: Admitting Provider Nurse Practitioner Acute Care; Emergency Provider Emergency Medicine; PCP Family Medicine; Visit Provider Student in an Organized Health Care Education/Training Program | DX: N40.0 Benign prostatic hyperplasia without lower urinary tract symptoms (principal); N32.89 Other specified disorders of bladder; J90 Pleural effusion, not elsewhere classified | CPT/HCPCS: 74177 ==

== ENCOUNTER 2025-01-20 12:12 | Outpatient (BNV) | payer MEDICARE, SELFPAY | END 2025-01-21 16:00 | PROVIDERS: Admitting Provider Nurse Practitioner Acute Care; Emergency Provider Emergency Medicine; PCP Family Medicine; Visit Provider Internal Medicine Cardiovascular Disease | DX: I51.7 Cardiomegaly (principal); I50.20 Unspecified systolic (congestive) heart failure | CPT/HCPCS: 93306 ==

== ENCOUNTER → 2025-01-20 12:12 | Outpatient (BNV) | payer MEDICARE, SELFPAY | PROVIDERS: Admitting Provider Nurse Practitioner Acute Care; Emergency Provider Emergency Medicine; PCP Family Medicine; Visit Provider Nurse Practitioner Acute Care | DX: I10 Essential (primary) hypertension (principal); I50.9 Heart failure, unspecified; I48.91 Unspecified atrial fibrillation; I48.92 Unspecified atrial flutter; R73.03 Prediabetes; R33.9 Retention of urine, unspecified; R97.20 Elevated prostate specific antigen [PSA]; N31.9 Neuromuscular dysfunction of bladder, unspecified; C61 Malignant neoplasm of prostate; J90 Pleural effusion, not elsewhere classified | CPT/HCPCS: 99223; 99233 ==

== ENCOUNTER → 2025-01-20 12:12 | Outpatient (BNV) | payer MEDICARE, SELFPAY | PROVIDERS: Admitting Provider Nurse Practitioner Acute Care; Emergency Provider Emergency Medicine; PCP Family Medicine; Visit Provider Internal Medicine | DX: C61 Malignant neoplasm of prostate (principal) | CPT/HCPCS: 99222 ==

== ENCOUNTER 2025-01-29 16:01 | Outpatient (AMB) | payer MEDICARE, SELFPAY ==
--- NOTE | 2025-01-29 16:04 | MHC.PC.OV ---
Vital Signs 01/29/25 16:08 Height 5 ft 9 in Weight 161 lb 6 oz BMI 23.8 BP 140/82 H Blood Pressure Location Lt brachial Position Sitting Respiration 12 Pulse 77 Pulse Source Pulse Oximeter Temp 98.1 F Temp Source Temporal Artery Scan Pulse Oximetry (%) 100 Oxygen Delivery Method Room Air Intake Visit Reasons: hdfu Intake Note: [facility] Hospital discharge follow up. Obstetric Anaesthetist Required: No Allergies shellfish derived Allergy (Verified 01/29/25 16:05) Anaphylaxis environmental allergies Adverse Reaction (Mild, Verified 01/29/25 16:05) Sneezing Medication List - Last Reconciled 01/29/25 by Bereket Bower MD apixaban (Eliquis) 5 mg PO BID@0700,1900 30 days digoxin 125 mcg PO DAILY 90 days furosemide (Lasix) 20 mg PO DAILY 30 days lysine 1,000 mg PO DAILY metoprolol succinate ER 50 mg PO DAILY 90 days [id number] C-herb no.124 250-11.66 mg (Airborne Gummy) 1 tab PO DAILY Tobacco use date assessed: 01/29/25 Fall risk assessment: No Falls in past year Last assessed Fall Risk: 01/29/25 Dental Screening Dental Screen Date: 01/29/25 Did you have a dental visit in the last 12 months?: Yes Did you have a dental problem in the last 6 months where you did not have access to dental care?: No Was dental information given to patient?: Patient has dentist HPI hdfu HPI Details 69 yo male noncompliant with medications, history of afib/aflutter, HTN, HLD, anemia, neurogenic bladder, hx CHF, pre-DM who presented to the ER from home c/o SOB, cough, intermittent chest pains and abdominal pains for about 3 days. He also stated he had shingles about 5 weeks prior to admission on his left trunk and was still having significant pain. Was discharged with Eliquis, furosemide, metoprolol, digoxin. Recommended to f/u with Cardiology. [facility] Medical History (Updated 01/29/25 @ 16:56 by Kyle Gaitan) Prostate cancer 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) Anemia Lipoprotein deficiency Essential hypertension Pre-diabetes Hyperlipidemia Hypercholesterolemia Surgical History Previous back surgery Family History Father Prostate cancer Lung cancer Social History Household Members: None Housing: House Do you presently have visiting nurse or other home services: No Alcohol intake: current Alcohol intake frequency: holidays/special occasions only Patient Tobacco Use Status: Former Tobacco user Tobacco use type: Cigarette e-Cigarette/Vaping Use: Never Used Second Hand Smoke Exposure: No Substance Use Type: Marijuana service: No Current occupational status: retired Cognitive needs: No Hearing needs: No Vision needs: No Questionnaire PHQ-9 Over the last 2 weeks, how often have you been bothered by any of the following problems? 1. Little interest or pleasure in doing things: nearly every day 2. Feeling down, depressed, or hopeless: not at all 3. Trouble falling or staying asleep, or sleeping too much: not at all 4. Feeling tired or having little energy: not at all 5. Poor appetite or overeating: not at all 6. Feeling bad about yourself - or that you are a failure or have let yourself or your family down: not at all 7. Trouble concentrating on things, such as reading the newspaper or watching television: not at all 8. Moving or speaking so slowly that other people could have noticed. Or the opposite - being so fidgety or restless that you have been moving around a lot more than usual: not at all 9. Thoughts that you would be better off or of hurting yourself in some way: not at all Total score: 3 Depression Screening Interpretation: Negative Depression Screening Done: Yes 03387 - PHQ-9 Billing: Yes Source: Developed by Drs. David Haddad, Delfina Estes, Audie Coats and colleagues, with an educational eve from [employer]. Thrive Questionnaire Date Thrive assessed: 01/29/25 I am a: Patient What is your living situation today?: I have a steady place to live Within the past 12 months, did the food you bought not last and you didn't have the money to get more?: I choose not to answer this question Within the past 12 months, did you worry whether your food would run out before you got money to buy more?: I choose not to answer this question Do you have trouble paying for medicines?: I choose not to answer this question Do you have trouble getting transportation to medical appointments?: I choose not to answer this question Do you have trouble paying your heating and electricity bill?: I choose not to answer this question Do you have trouble taking care of your child, family member or friend?: I choose not to answer this question Do you have trouble with day-to-day activities such as bathing, preparing meals, shopping, managing finances, etc.?: I choose not to answer this question Are you currently unemployed and looking for a job?: I choose not to answer this question Are you interested in more education?: I choose not to answer this question Please select the resources that you would like help with: None Currently or been in a relationship where the following occur: I choose not to answer THRIVE Score: 0 AUDIT C Alcohol Use Questionnaire (AUDIT-C) 1. How often do you have a drink containing alcohol?: Monthly or less 2. How many drinks containing alcohol do you have on a typical day when you are drinking?: 1 or 2 3. How often do you have six or more drinks on one occasion?: Less than monthly Total Score: 2 CAMELIA-7 AMB Questionnaire CAMELIA-7 Date CAMELIA - 7 assessed: 01/29/25 Feeling nervous, anxious, or on edge: 0 = Not at all Not being able to stop or control worryin = Not at all Worrying too much about different things: 0 = Not at all Trouble relaxin = Not at all Being so restless that it is hard to sit still: 0 = Not at all Becoming easily annoyed or irritable: 0 = Not at all Feeling afraid as if something awful might happen: 0 = Not at all Total CAMELIA-7 score (0-4 normal; 5-9 mild; 10-14 moderate; 15-21 severe): 0 Source: Developed by Drs. David Haddad, Delfina Estes, Audie Coats and colleagues, with an educational eve from [employer]. CAMELIA-7 Assessment Billing CAMELIA-7 Assessment Tool: CAMELIA-7 Assessment 50795 Review of Systems Const Denies chills, Denies fatigue, Denies fever(s), Denies headache(s) and Denies weakness ENT Denies dizziness and Denies headache(s) Card Denies dyspnea Resp Denies cough, Denies dyspnea, Denies wheezing and Denies other (shortness of breath) Musc Denies numbness and Denies tingling Neuro Denies dizziness, Denies headache(s), Denies numbness, Denies tingling and Denies weakness Psych Denies anxiety and Denies depression Endo Denies fatigue Aller/Immun Denies wheezing Physical exam (Primary Care) Vital Signs: Last Vital Signs Temp 98.1 F 01/29/25 16:08 Pulse 77 01/29/25 16:08 Resp 12 01/29/25 16:08 BP 140/82 H 01/29/25 16:08 Pulse Ox 100 01/29/25 16:08 Oxygen Delivery Method Room Air 01/29/25 16:08 BMI result Body Mass Index 23.8 Tobacco/Smoking Status: Tobacco use Status Tobacco use date assessed 01/29/25 01/29/25 16:07 Patient Tobacco Use Status Former Tobacco user 01/29/25 16:04 Tobacco use type Cigarette 01/29/25 16:04 e-Cigarette/Vaping Use Never Used 01/29/25 16:04 PHQ-9: PHQ-9 Score PHQ-9: Total score 3 01/29/25 16:25 Depression Screening Interpretation: Negative Thrive Assessment: Date of Thrive Assessment Date Thrive assessed 01/29/25 01/29/25 16:04 Currently or been in a relationship where the following occur: I choose not to answer Const General: well developed; No acute distress Nutritional Appearance: well nourished Orientation/consciousness: patient [facility] x3 [facility]: Yes normocephalic and Yes atraumatic Eyes General: appearance normal, both eyes and all related structures Pupils: Equal, round and reactive pupils present EOM: EOMs intact bilaterally Resp Effort & Inspection: normal respiratory effort Auscultation: clear to auscultation bilaterally Cardio Rate: regular rate Rhythm: abnormal rhythm Heart sounds: S1 normal heart sound present, S2 normal heart sound present, no gallops, no murmurs and no rubs Neuro General: patient oriented x3 and gait normal Cranial nerves: Yes Equal, round and reactive pupils present Psych Affect: normal affect Coding Level of Care Code Est Pt Level 5 (19365) Diagnoses Atrial flutter I48.92 Atrial fibrillation I48.91 History of prostate cancer Z85.46 CHF (congestive heart failure) I50.9 Cardiomyopathy I42.9 Additional Codes CAMELIA-7 Assessment Billing - CAMELIA-7 Assessment Tool: CAMELIA-7 Assessment 23955 ([id number]) PHQ-9 - 51140 - PHQ-9 Billing: Yes ([id number]) Assessment & Plan Assessment & Plan (1) Atrial flutter: Code(s): I48.92 - Unspecified atrial flutter Category: Medical (2) Atrial fibrillation: Code(s): I48.91 - Unspecified atrial fibrillation Category: Medical (3) History of prostate cancer: Code(s): Z85.46 - Personal history of malignant neoplasm of prostate Category: Medical (4) CHF (congestive heart failure): Code(s): I50.9 - Heart failure, unspecified Category: Medical (5) Cardiomyopathy: Code(s): I42.9 - Cardiomyopathy, unspecified Category: Medical Plan 69 yo male noncompliant with medications, history of afib/aflutter, HTN, HLD, anemia, neurogenic bladder, hx CHF, pre-DM who presented to the ER from home c/o SOB, cough, intermittent chest pains and abdominal pains for about 3 days. He also stated he had shingles about 5 weeks prior to admission on his left trunk and was still having significant pain. EKG showed acute on chronic atrial flutter with With heart rates 140s to 160s. He was given Lopressor and digoxin. Chest x-ray showed bibasilar opacities. CTA did not show any PE. BNP was 6072. Patient declined anticoagulation despite CVA risk. CTA of the chest also showed bony abnormalities with concerns for metastases from prostate. Patient had cardiac consult was admitted. Patient was diuresed with furosemide Cardiology recommended the following medications though patient declined many of them. These were sent regardless and patient was informed that it is up to him to decide to take them or not. - digoxin - metoprolol - apixaban - furosemide 20 mg OD p.o. - Daily weights - Strict intake and output - Cardiac diet - follow up outpatient Cardiology within 1-2 weeks of discharge - BMP within 1 week of discharge After lengthy discussions, patient is more amenable to trying anticoagulation. He is concerned about cost. Will send a script for Elimaricarmen and try to get this covered. We could use another anticoagulant if needed. Discussed benefits of rate control in atrial fibrillation/flutter. Patient agrees to take metoprolol and digoxin for rate control. Patient also would like a referral to [facility] cardiology. He has seen [facility] cardiology in the past but wants to switch to [place]. Referred to Cardiology Patient agrees to cone picker the above medications after discussing the use of each one. He will also get his labs drawn tomorrow. Will get him a script for a scale as he has no way to check his weights at home. Call for greater than 3 lb weight gain in a day or greater than 5 lb weight gain in a week. Or for dyspnea/orthopnea. Continue furosemide. Avoid salt and sodium. Had a long discussion about prostate cancer with metastases. He has seen Dr. Page in the past and she had consulted at the hospital to discuss his case. Patient says he would be interested in discussing his options with her again. Referred to Hematology-Oncology Patient was seen by Hematology-Oncology. They feel that findings are consistent with metastatic prostate cancer and may be amenable to treatment with good outcome. Patient did not seem interested in pursuing this. Orders: Orders Complete Blood Count Auto Diff Today I48.92 - Unspecified atrial flutter, Z00.00 - Encounter for general adult medical examination without abnormal findings Digoxin Today I48.92 - Unspecified atrial flutter Basic Metabolic Panel Today I48.92 - Unspecified atrial flutter, Z00.00 - Encounter for general adult medical examination without abnormal findings TSH reflex Free T4 Today I48.92 - Unspecified atrial flutter, Z00.00 - Encounter for general adult medical examination without abnormal findings Referrals Cardiology Referral I42.9 - Cardiomyopathy, unspecified, I48.92 - Unspecified atrial flutter, I50.9 - Heart failure, unspecified Hematology & Oncology Referral C61 - Malignant neoplasm of prostate Medications: New miscellaneous medical supply Body Scale. Daily weights As directed, 999 days 1 ea 0RF I50.9 - Heart failure, unspecified Changed From digoxin 125 mcg PO DAILY 30 days 30 tabs 0RF To digoxin 125 mcg PO DAILY 90 tabs 2RF 90 days From metoprolol succinate ER 50 mg PO DAILY 30 days 30 tabs 0RF To metoprolol succinate ER 50 mg PO DAILY 90 tabs 3RF 90 days Refilled apixaban (Eliquis) 5 mg PO BID@0700,1900 60 tabs 0RF 30 days furosemide (Lasix) 20 mg PO DAILY 30 tabs 3RF 30 days
[2025-01-29 16:08] VITALS: BP 140/82; PULSE 77; RESP 12; TEMP 36.7; O2SAT 100; BMI 23.8
--- OUTSIDE RECORDS SUMMARY | 2025-01-29 18:48 | XMS_ITS | Data Portability ---
Author Organization [facility], Main Office Address [address] [facility] [place] [address] Care Team Providers Care Clinical Interviewer Name Role Phone [facility] Urologist FLAVIO BATRES Primary Care [...] or plasma 2018 019 [facility], [address], [place], [address], 9 14:23:05 lipid panel, serum 2018 019 [facility], [address], [place], [address], 9 14:23:06 hepatitis C virus Ab, serum 2018 019 [facility], [address] [place], [address], 9 16:18:27 HbA1c (hemoglobi n A1c), blood 2018 019 [facility], [address], [place], [address], 9 17:33:09 vitamin D, 25-hydroxy , total, serum 2018 019 [facility], [address], [place], [address], 9 14:41:42 colon cancer screening, stool 2018 019 [facility], [address] [facility], [address], [place], [address], 0 15:46:29 lipid panel, serum 2015 016 [...] referral 2016 017 aliza Elias MD, [address] [facility], [place], [address], 7 20:52:42 urologist referral 2015 016 DBA_PATCH_ [id number] Vaibhav Sexton MD, [address] [facility], [facility] [address], [place], [address], 6 04:32:23 Procedures cerumen removal (PROC) 2015 016 DBA_PATCH_ [id number] In-Office Order, Internal Use Only DO Not Attach Compendium DO Not Attach Compendium, Do Not Delete/merge, [id number] 6 04:32:13 Surgeries None recorded. Imaging None recorded. Medication Orders None recorded. Patient TargetsNo targets recorded. Patient Instructions Encounter Date Encounter Id Patient Instructions Last Modified By Organization Details Last Modified Time 01/07/2016 [id number] earwax blockage: care instructions Not available 01/07/2016 14:08:36 urinary retention: care instructions Not available 01/07/2016 14:08:36 03/07/2016 [id number] urinary retention: care instructions Not available 03/08/2016 11:10:34 Colon Cancer Screening VMA Not available 03/08/2016 11:10:34 learning about colon cancer Not available 03/08/2016 11:10:34 08/07/2018 [id number] urinary retention: care instructions pmadden Not available [...] Carrillo Bruce, Internal Medicine, Encounter Date: 01/07/2016 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 Biller Referral for Screening for malignant neoplasm of [...] if clini sasha indic ated. Test Type: [place] site algor ithmi c mg sis of [...] years or older , who are at [facility] for CRC. Colog uard has been appro [...] , singl e point in time) of [facility] adult s aged 50-84 . Colog [...] ution s can be found at www.[facility] m. Rx only. Not Available [facility] [address], [place], [address], 08/07/2019 05:56:33 01/07/20 16 01/07/2016 cerum en remov al (PROC ) done by Gabriela Not Available In-Office Order Internal Use Only DO Not Attach Compendium DO Not Attach Compendium, Do Not Delete/merge, [id number] 01/07/2016 13:41:04 02/24/20 16 02/24/2016 BMP, serum or plasm a glucose 108 mg/dL (70-99 ) high Not Available [facility] (Centralized Electronic Ordering - All Locations) Patient Can Go To The Location Of Their Choice, [id number] 02/24/2016 15:56:51 02/24/20 16 02/24/2016 BMP, serum [...] Go To The Location Of Their Choice, [id number] 08/13/2018 14:23:04 08/14/1908/13/2018 CMP, serum or plasm [...] Go To The Location Of Their Choice, [id number] 08/13/2018 14:23:04 08/14/1908/13/2018 CMP, serum or plasm [...] Go To The Location Of Their Choice, [id number] 08/13/2018 14:23:04 08/14/19 19 08/13/2018 lipid panel , serum cholesterol, total 169 mg/dL (<200) Not Available [facility] (Centralized Electronic Ordering - All Locations) Patient Can Go To The Location Of Their Choice, [id number] 08/13/2018 14:23:06 08/14/19 19 08/13/2018 lipid panel , serum triglyceride 72 mg/dL (<150) Not Available [facility] (Centralized Electronic Ordering - All Locations) Patient Can Go To The Location Of Their Choice, [id number] 08/13/2018 14:23:08/14/19 19 08/13/2018 lipid panel , serum HDL chol 57 mg/dL (>39) Not Available [facility] (Centralized Electronic Ordering - All Locations) Patient Can Go To The Location Of Their Choice, [id number] 08/13/2018 14:23:06 08/14/19 19 08/13/2018 lipid panel , serum LDL cholesterol, calculated 98 mg/dL (0-130 ) Not Available [facility] (Centralized Electronic Ordering - All Locations) Patient Can Go To The Location Of Their Choice, [id number] 08/13/2018 14:23:06 08/14/19 19 08/13/2018 lipid panel , serum non HDL cholesterol (calc) 112 mg/dL (<160) Not Available [facility] (Centralized Electronic Ordering - All Locations) Patient Can Go To The Location Of Their Choice, [facility] 08/13/2018 14:23:06 08/14/1908/13/2018 vitam in D, 25-hy droxy , total , serum 25OH vitamin D 7.6 NG/mL (20-50 ) low Serum 25OHD : Less than 12 ng/ml : at risk of vitam in D defic iency . Refer ence: PENDING SALE TO [facility] Data Brief : No.59 April: Vitam in D Statu s: Unite d State s: 2000- 2005 Not Available [facility] (Centralized Electronic Ordering - All Locations) Patient Can Go To The Location Of Their Choice, [id number] 08/13/2018 14:41:41 08/14/1908/13/2018 hepat itis C virus Ab, serum anti-hepatit is C NEGAT PORTIA Refer ence range : Negat portia This test was perfo rmed on the Abbot t Archi tect immun oassa y syste m. Not Available [facility] (Centralized Electronic Ordering - All Locations) Patient Can Go To The Location Of Their Choice, [id number] 08/13/2018 16:18:27 08/14/19 19 08/13/2018 HbA1c (hemo [...] Go To The Location Of Their Choice, [id number] 08/13/2018 17:33:09 01/11/20 16 12/28/2012 CT, abdom [...] BY YONATHAN SCHULER, OFFICE VISIT Not Available [facility] 4 05:27:39 Administ ration of bacteria l and viral vaccine Completed 200809/10/2013 RECORDED 07/01/19 09 9:14AM BY YONATHAN SCHULER, OFFICE VISIT Not Available [facility] 4 14:16:46 Acute pharyngi tis 378960956 Completed 201110/07/2013 IMPRESSI ON: RAPID STREP NEG, SUSPECT VIRAL. ADVISED RE SX CARE. CALL FOR WORSENIN G SXS/PRN. ; RECORDED 10/24/19 12 9:38AM BY KENYA HERRERA MA, ANNOTATI ON/ADDEN DUM Not Available [facility] 4 05:27:39 Disorder of bursa of shoulder region 92866315 Completed 201110/07/2013 RECORDED 10/24/19 12 10:36AM BY CARRILLO BRUCE MD, ANNOTATI ON/ADDEN DUM Not Available [facility] 4 05:27:39 Urinary tract infectio us disease 62717146 Completed 201110/07/2013 IMPRESSI ON: SOME MILD PROSTATE TENDERNE SS ON EXAM, CONSIDER PROSTATI TIS; RECORDED 10/24/19 12 9:38AM BY KENYA HERRERA MA, ANNOTATI ON/ADDEN DUM Not Available [facility] 4 05:27:39 Acute pharyngi tis 732109288 Completed 201109/10/2013 IMPRESSI ON: RAPID STREP NEG, SUSPECT VIRAL. ADVISED RE SX CARE. CALL FOR WORSENIN G SXS/PRN. ; RECORDED 10/24/19 12 9:38AM BY KENYA HERRERA MA, ANNOTATI ON/ADDEN DUM Not Available [facility] 4 14:16:45 Disorder of bursa of shoulder region 17911779 Completed 201109/10/2013 RECORDED 10/24/19 12 10:36AM BY CARRILLO BRUCE MD, ANNOTATI ON/ADDEN DUM Not Available [facility] 4 14:16:47 Urinary tract infectio us disease 30198816 Completed 201109/10/2013 IMPRESSI ON: SOME MILD PROSTATE TENDERNE SS ON EXAM, CONSIDER PROSTATI TIS; RECORDED 10/24/19 12 9:38AM BY KENYA HERRERA MA, ANNOTATI ON/ADDEN DUM Not Available [facility] 4 14:16:47 Impacted saúlumen 21757031 Completed 201110/07/2013 RECORDED 02/24/20 12 10:31AM BY CAROL HEREDIA MA, ANNOTATI ON/ADDEN DUM Not Available [facility] 4 05:27:39 Screenin g for malignan t neoplasm of colon Completed 201110/07/2013 RECORDED 02/24/20 12 10:31AM BY CAROL HEREDIA MA, ANNOTATI ON/ADDEN DUM Not Available [facility] 4 05:27:39 Impacted saúlumen 95875768 Completed 201109/10/2013 RECORDED 02/24/20 12 10:31AM BY CAROL HEREDIA MA, ANNOTATI ON/ADDEN DUM Not Available [facility] 4 14:16:46 Screenin g for malignan t neoplasm of colon Completed 201109/10/2013 RECORDED 02/24/20 12 10:31AM BY CAROL HEREDIA MA, ANNOTATI ON/ADDEN DUM Not Available [facility] 4 14:16:46 Malaise and fatigue 174530618 Completed 201210/07/2013 RECORDED 12/29/19 13 12:57PM BY NAAHI CHAMPAGNE MA, ANNOTATI ON/ADDEN DUM Not Available [facility] 4 05:27:39 Glucose level outside referenc e range 092225076 Completed 201210/07/2013 RECORDED 12/29/19 13 12:57PM BY ANAHI CHAMPAGNE MA, ANNOTATI ON/ADDEN DUM Not Available [facility] 4 05:27:39 Screenin g procedur e Completed 201210/07/2013 RECORDED 12/29/19 13 12:57PM BY ANAHI CHAMPAGNE MA, ANNOTATI ON/ADDEN DUM Not Available [facility] 4 05:27:39 Malaise and fatigue 683955294 Completed 201209/10/2013 RECORDED 12/29/19 13 12:57PM BY ANAHI CHAMPAGNE MA, FAMILIAATI ON/ADDEN DUM Not Available [facility] 4 14:16:46 Glucose level outside referenc e range 032765847 Completed 201209/10/2013 RECORDED 12/29/19 13 12:57PM BY ANAHI CHAMPAGNE MA, FAMILIAATI ON/ADDEN DUM Not Available [facility] 4 14:16:46 Screenin g procedur e Completed 201209/10/2013 RECORDED 12/29/19 13 12:57PM BY ANAHI CHAMPAGNE MA, RADHA ON/ADDEN DUM Not Available [facility] 4 14:16:46 Finding of trunk structur e Completed 201210/07/2013 RESOLVED DATE: 01/03/20 13; STORY: WOUND UP BEING SEVERELY DISTENDE D BLADDER; RECORDED 01/03/20 13 2:36PM BY SHAHEED BANDA, ANNOTATI ON/ADDEN DUM Not Available [facility] 4 05:27:39 Retentio n of urine 681551425 Completed 201210/07/2013 RECORDED 01/03/20 13 1:00PM BY BALAJI AG MA, ANNOTATI ON/ADDEN DUM YONATHAN Thurston [place] - [facility] 6 13:16:50 Adult health examinat ion Completed 201210/07/2013 RECORDED 01/03/20 13 1:00PM BY BALAJI AG MA, FAMILIAATI ON/ADDEN DUM Not Available [facility] 4 05:27:39 Edema 878671512 Completed 201210/07/2013 RECORDED 01/03/20 13 12:59PM BY BALAJI AG MA, RADHA ON/ADDEN DUM Not Available [facility] 4 05:27:39 Follow-u p encounte r Completed 201210/07/2013 RECORDED 01/03/20 13 1:00PM BY BALAJI AG MA, ANNOTATI ON/ADDEN DUM Not Available [facility] 4 05:27:39 Finding of trunk structur e Completed 201209/10/2013 RESOLVED DATE: 01/03/20 13; STORY: WOUND UP BEING SEVERELY DISTENDE D BLADDER; RECORDED 01/03/20 13 2:36PM BY SHAHEED BANDA, ANNOTATI ON/ADDEN DUM Not Available [facility] 4 14:16:45 Retentio n of urine 465617719 Completed 201209/10/2013 RECORDED 01/03/20 13 1:00PM BY BALAJI AG MA, ANNOTATI ON/ADDEN DUM YONATHAN [place] - [facility] 6 13:16:50 Adult health examinat ion Completed 201209/10/2013 RECORDED 01/03/20 13 1:00PM BY BALAJI AG MA, ANNOTATI ON/ADDEN DUM Not Available [facility] 4 14:16:45 Edema 119775694 Completed 201209/10/2013 RECORDED 01/03/20 13 12:59PM BY BALAJI AG MA, ANNOTATI ON/ADDEN DUM Not Available [facility] 4 14:16:46 Follow-u p encounte r Completed 201209/10/2013 RECORDED 01/03/20 13 1:00PM BY BALAJI AG MA, ANNOTATI ON/ADDEN DUM Not Available [facility] 4 14:16:46 Acute kidney injury 69930146 Completed 201310/07/2013 STORY: SECONDAR Y TO URINARY RETENTIO N; IMPRESSI ON: KEEP UROLOGY APPT. DOING BETTER.; RECORDED 05/14/19 14 1:54PM BY CARRILLO BRUCE MD, FAMILIAATI ON/ADDEN DUM Not Available [facility] 4 05:27:39 Laborato ry procedur e performe d 369775712 Completed 201310/07/2013 RECORDED 05/14/19 14 1:17PM BY ANAHI CHAMPAGNE MA, ANNOTATI ON/ADDEN DUM Not Available [facility] 4 05:27:39 Acute kidney injury 68241555 Completed 201309/10/2013 STORY: SECONDAR Y TO URINARY RETENTIO N; IMPRESSI ON: KEEP UROLOGY APPT. DOING BETTER.; RECORDED 05/14/19 14 1:54PM BY CARRILLO BRUCE MD, ANNOTATI ON/ADDEN DUM Not Available [facility] 4 14:16:45 Anemia 702836501 Completed 201308/07/2018 Flavio Batres PA-C [address] [facility] [address], [place], [address] , [facility] 9 13:35:56 Clinical finding Completed 201301/07/2016 IMPRESSI ON: LETTER SENT. UNABLE TO REACH PT BY PHONE; RECORDED 05/14/19 14 1:17PM BY ANAHI CHAMPAGNE MA, OFFICE VISIT YONATHAN Thurston [facility] 6 13:17:01 Tobacco user [id number] Completed 201303/07/2016 Removal Reason: quit YONATHAN Thurston, [facility] 7 10:15:11 History of clinical finding in subject 240842794 Completed 201301/07/2016 RECORDED 05/14/19 14 1:17PM BY ANAHI CHAMPAGNE MA, OFFICE VISIT YONATHAN Thurston [facility] 6 13:17:05 Hyperlip idemia 10131719 Active 2013 YONATHAN Thurston [facility] 6 13:17:08 Laborato ry procedur e performe d 867008167 Completed 201309/10/2013 RECORDED 05/14/19 14 1:17PM BY ANAHI CHAMPAGNE MA, RADHA ON/ADDEN DUM Not Available [facility] 4 14:16:46 Immuniza tion refused Completed 201301/07/2016 RECORDED 05/14/19 14 1:17PM BY ANAHI CHAMPAGNE MA, OFFICE VISIT YONATHAN Thurston, [facility] 6 13:16:56 Retentio n of urine 433573713 Active 2013 STORY: FOLLOW UP WITH DR. SEXTON. YONATHAN Thurston, [facility] 6 13:16:50 Ex-smoke r 9469081 Active 2016 YONATHAN Thurston, [facility] 7 10:15:19 Benign prostati c hyperpla chastity with outflow obstruct ion 263942363 Active 2018 Flavio Batres PA-C [address], [place], [address] , [facility] 9 14:07:37 Impaired fasting glycemia 882667180 Active 2018 Flavio Batres PA-C [address], [place], [address] , [facility] 9 14:07:44 Varicose veins of lower extremit y 71932385 Active 2018 Flavio Batres PA-C [address], [place], [address] , [facility] 9 14:07:47 Prediabe ravi 685000426 Active 2018 Flavio Batres PA-C [address], [place], [address] , [facility] 9 12:46:17 Vitamin D deficien cy 52499037 Active 2018 Flavio Batres PA-C [address], [place], [address] , [facility] 9 12:46:19 Problem Notes None recorded. Procedures Surgical History Date Name Laterality Status Provider Name and Address Organization Details Recorded Time Colonoscopy completed Anahi YONATHAN Tavarez [facility] 03/07/2016 10:26:42 Back Surgery completed Anahi Tavarez MA [facility] 03/07/2016 10:26:05 FOBT completed Anahi Tavarez [facility] 03/07/2016 10:29:31 Imaging Results None recorded. Procedure Notes None recorded. Medical Equipment None Reported. Allergies Allergen ID Allergen Name Allergen Category Reaction Reaction Severity Criticality Documentation Date Start Date Code Code System Note Provider Name and Address Organization Details Recorded Time 17468 POLLEN EXTRACTS environme nt,medica tion eye swelling moderate Not available 08/07/2018 24776 6 RxNorm Renettajosef bowser [facility] 9 12:56:24 79708 shellfish derived food,medi cation anaphylax is severe Not available 08/07/2018 Renetta bowser [facility] 9 12:56:48 Medications Name Sig Start Date [...] 03/07/2016 122/80 mm[Hg] Carrillo Bruce MD [address] [address], [place], [address], [facility] 03/07/2016 11:01:21 Date Recorded Body height Oxygen saturation Heart rate Body temperature Body weight Body mass index (BMI) Provider Name and Address Organization Details Last Updated DateTime 7 176.53 cm 99 % 73 /min 97.7 [degF] 53882.3 3 g 24.2 kg/m2 Anahi jimenez MA [facility] 7 10:32:23 Date Recorded Body height Body mass index (BMI) Body weight Heart rate Oxygen saturation Body temperature Systolic And Diastolic Provider Name and Address Organization Details Last Updated DateTime 9 176.53 cm 23.9 kg/m2 67931.1 5 g 89 /min 98 % 97.8 [degF] 131/89 mm[Hg] Renetta Scott [facility] 9 12:55:08 Date Recorded Body height Oxygen saturation Heart rate Body temperature Body weight Body mass index (BMI) Systolic And Diastolic Provider Name and Address Organization Details Last Updated DateTime 6 182.88 cm 100 % 68 /min 97.2 [degF] 39690.3 3 g 22.5 kg/m2 114/76 mm[Hg] Anahi jimenez MA [facility] 6 13:24:47 Social History Question Answer Notes LastModified by Organizat ion Details LastModified Time Tobacco Smoking Status Former Smoker YONATHAN Gutierrez, [facility] 01/07/2016 13:21:11 Do You Have An Advance [...] not available 01/07/2016 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 Information not available 03/07/2016 What is your [...] adsorbed 9 completed Not Available [facility] 03/16/2019 02:21:30 Tdap 9 completed Not Available [facility] 09/10/2013 13:53:16 Past Encounters Encounter ID Performer Location Encounter Start Date Encounter Closed Date Diagnosis/Indication Diagnosis SNOMED-CT Code Diagnosis ICD10 Code Diagnosis IMO Codes Diagnosis Note [id number] autoEComm erce [address] [facility] [place] [id number] 06/30/2008 00:00:00 [id number] autoEComm erce [address] [facility] [place] [id number] 08/14/2009 00:00:00 [id number] autoEComm erce [address] [facility] [place] [id number] 07/13/2010 00:00:00 [id number] autoEComm erce [address] [facility] [place] [id number] 07/05/2011 00:00:00 [id number] autoEComm erce [address] [facility] [place] [id number] 10/24/2011 00:00:00 [id number] autoEComm erce [address] [facility] [place] [id number] 12/28/2012 00:00:00 [id number] autoEComm erce [address] [facility] [address] [facility] [id number] 01/02/2013 00:00:00 [id number] autoEComm erce [address] [facility] [address] [place] [id number] 05/13/2013 00:00:00 [id number] Carrillo Bruce MD Main Office [address] [place] [address] 01/07/2016 13:14:30 01/07/2016 14:10:54 Impacted cerumen 23891064 H61.23 Retention of urine 77215 4002 R33.9 Hyperlipidemia 99295339 E78.5 Fatigue 48512242 R53.83 [id number] Carrillo Bruce MD Main Office [address] [place] [address] 03/07/2016 10:01:52 03/07/2016 10:59:50 Adult health examination 353135959 Z00.00 Varicella vaccination 68 370444 Z23 Screening for malignant neoplasm of colon 670501830 Z12.11 Plans to do FOBT Retention of urine 83035 4002 R33.9 Benign pro static hyperplasia with outflow obstruction 847088945 N13.8 Followed by . has declined surgery for severe obstructio n. [id number] Vance Gore MD Main Office [address] [address] 08/07/2018 12:47:03 08/07/2018 14:11:32 Adult health examination 425849680 Z00.00 Screening for malignant neoplasm of colon 779675169 Z12.11 rec colonoscop y, but if he defers - at least look into cologuard Retention of urine 25558 4002 R33.9 History of urinary retention related to BPH. has had poor follow up with and declines surgery. Now doing self-cath 2 to 3 times per day (recommend ed 4 times daily). pending f/u c uro next wk Benign pro static hyperplasia with outflow obstruction 543505034 N13.8 Followed by . has declined surgery for severe obstructio n. Vitamin D deficiency 347 43572 E55.9 Impaired f asting glycemia 554291971 R73.01 Requires a tetanus booster 055597287 Z23 Varicella vaccination 68 146696 Z23 Varicose v eins of lower extremity 38373459 I83.93 Health Concerns Section Related Observation LastModified by Organization Detai ls LastModified Time None Recorded Concern Status LastModified by Organization Details LastModified Time None Recorded Advance Directives Directive Y: signed on 03/07/2016 Payers Insurance Date Sequence Insurance Name Policy Number Policy Gant Covered Member ID Gant Member ID Guarantor Name 03/21/2022 1 [employer] [id number] Anthony Maldonado [id number] Anthony Maldonado 03/21/2022 1 [employer] [id number] Anthony Maldonado [id number] Anthony Maldonado 03/21/2022 1 [employer] (PPO) [id number] Anthony Maldonado [id number] Anthony Maldonado Notes Date Note Type Note Provider Name and Address Organization Details Recorded Time 01/07/2016 text/html ROS as noted in the HPI Notes decreased hearing and some discomfort both ears. Has had to have ear lavage in the past. No fevers. No nasal congestion, headaches, sore throat. Carrillo Bruce MD [address], [address], [facility] [place] 01/07/2016 13:45:38 03/07/2016 text/html Here for PE visit. Reviewed chronic medications and medical problems. Discussed screening guidelines as well as goals for fitness and weight management. Noted to have history of urinary retention related to BPH. now with bladder dysfunction requiring intermittent self cath. He has repeat US and follow up scheduled with urology. Carrillo Bruce MD [address] [address], [place], [address], [facility] [place] 03/07/2016 11:01:56 08/07/2018 text/html Generic HPI TemplateReported by Patient here for annual pe. Flavio Batres PA-C [address] [address], [place], [address], [facility] [place] 08/07/2018 14:08:13
== END 2025-01-29 17:01 | disposition home or self-care (01) ==
PROVIDERS: PCP Family Medicine; Visit Provider Family Medicine
DX: I48.92 Unspecified atrial flutter (principal); I48.91 Unspecified atrial fibrillation; I50.9 Heart failure, unspecified; I42.9 Cardiomyopathy, unspecified; Z85.46 Personal history of malignant neoplasm of prostate

== ENCOUNTER → 2025-01-29 16:01 | Outpatient (BNVA) | payer MEDICARE, SELFPAY | PROVIDERS: PCP Family Medicine; Visit Provider Family Medicine | DX: I11.0 Hypertensive heart disease with heart failure (principal); I48.92 Unspecified atrial flutter; I48.91 Unspecified atrial fibrillation; I50.9 Heart failure, unspecified; I42.9 Cardiomyopathy, unspecified; Z79.01 Long term (current) use of anticoagulants; Z85.46 Personal history of malignant neoplasm of prostate | CPT/HCPCS: 96127; 99212 ==

== ENCOUNTER 2025-02-24 14:11 | Outpatient (AMB) | payer MEDICARE, SELFPAY ==
--- NOTE | 2025-02-24 14:14 | MHC.OFFVIS ---
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 Daily weights As directed, 999 days [id number] C-herb no.124 250-11.66 mg (Airborne Gummy) 1 tab PO DAILY HPI Comments Details: This is a 69-year-old male patient coming in for a hospital discharge follow-up visit. Patient with a history of AFib for which patient was previously following [facility] and was on amiodarone and Eliquis however patient stopped this on his own. Most recently patient came in the hospital for reports of fever and chills and was noted to be in a flutter with RVR and in congestive heart failure with an EF between 25-30%. Patient was restarted on Eliquis, metoprolol, and was started on digoxin and Lasix therapy however patient has not been taking his Eliquis at all. Patient is also very skeptical about taking any medications however patient is very adamant about not being on blood thinners at all. Patient mostly is very yarsanism and believes that medications are not good for him however he did mentioned once that Eliquis was expensive. Patient is reporting feeling well overall without any cardiac symptoms at this time. Denying exertional shortness of breath, chest pain, palpitations, dizziness, orthopnea, PND, leg edema, presyncope or syncope. 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) Anemia Lipoprotein deficiency Essential hypertension Pre-diabetes Hyperlipidemia Hypercholesterolemia Surgical History Previous back surgery Family History Father Prostate cancer Lung cancer Social History Household Members: None Housing: House Do you presently have visiting nurse or other home services: No Alcohol intake: current Alcohol intake frequency: holidays/special occasions only Patient Tobacco Use Status: Former Tobacco user Tobacco use type: Cigarette Years Smoked: 1989 e-Cigarette/Vaping Use: Never Used Second Hand Smoke Exposure: No Substance Use Type: Marijuana service: No Current occupational status: retired Cognitive needs: No Hearing needs: No Vision needs: No Review of Systems Const Denies daytime sleepiness, Denies difficulty sleeping, Denies snoring, Denies stops breathing during sleep and Denies weakness Card Denies chest pain, Reports rapid heart rate, Denies irregular heart rhythm, Denies claudication, Denies leg edema, Denies lightheadedness, Denies palpitations, Denies dyspnea, Denies dyspnea on exertion, Denies orthopnea, Denies paroxysmal nocturnal dyspnea and Denies slow heart rate Resp Denies cough, Denies dyspnea, Denies dyspnea on exertion and Denies snoring GI Reports no additional complaints, Denies hematochezia, Denies change in stool character and Denies dyspepsia Musc Denies abnormal gait, Denies muscle weakness and Denies numbness Neuro Denies abnormal gait, Denies numbness and Denies weakness Endo Denies palpitations Physical Exam Vital Signs: Last Vital Signs Pulse 58 02/24/25 14:16 BP 122/76 02/24/25 14:16 BMI result Body Mass Index 23.9 Const General: cooperative, healthy appearing, comfortable and no acute distress Orientation/consciousness: patient oriented x3 HEENT Head: Yes normal to inspection Neck Neck: Yes normal visual inspection, Yes trachea midline and Yes supple Chest Chest palpation & inspection: normal inspection of the chest Resp Effort & Inspection: normal respiratory effort Auscultation: clear to auscultation bilaterally, no crackles, no rales, no rhonchi and no wheezes Cardio Jugular venous distension: no JVD Palpation: normal PMI Rate: bradycardic Rhythm: regular rhythm Heart sounds: S1 normal heart sound present, S2 normal heart sound present, no click, no gallops, no murmurs and no rubs Peripheral pulses: Peripheral pulses 2+ throughout GI Inspection: Yes normal to inspection Palpation (GI): Soft to palpation Auscultation: normal bowel sounds Skin General skin exam: no rashes or lesions noted Neuro General: patient oriented x3 Extrem General: Yes normal to inspection, No no pedal edema and No calf tenderness Psych Appearance: grossly normal Mental Status: mental status grossly normal Speech and movement: Normal speech and movement present Office Procedures EKG Details: EKG today shows sinus bradycardia with occasional PVCs, rate 58 beats per minute, right bundle branch block and left anterior fascicular block in the pattern of bifascicular block, minimal voltage criteria for LVH, dispersed T-wave inversions, [place], [place]. [id number], Complete Assessment & Plan Assessment & Plan (1) Atrial fibrillation: Code(s): I48.91 - Unspecified atrial fibrillation Category: Medical Plan: EKG today shows sinus rhythm. Echo shows a severe LV systolic dysfunction with an EF between 25-30% which most likely could be related to tachycardia related to AFib with RVR. Clinically euvolemic at this time. Patient was emphasized on med compliance and discuss the need for anticoagulation due to risk for stroke call our patient is adamant about not being on blood thinners. Offered the free 30 day coupon which patient is willing to try and we stated that we will get a prior Auth for the Eliquis once that is completed. Discussed with them that if cost remains prohibitive then may need to go on Coumadin being a cheaper alternative was discussed and that do not require frequent lab monitoring. Patient is hesitant of this at this time. Continue Eliquis for full anticoagulation. Continue metoprolol and digoxin for rate control. Refills will be sent. We will get a Holter study to assess for his AFib burden and rate control. Discussed in detail about the indications for medications as well at risk of not being on them. Patient verbalizes understanding. Discussed signs and symptoms of heart failure to watch for. Advised on low-salt diet, daily weight monitoring, and compression socks as needed. (2) Atrial flutter: Code(s): I48.92 - Unspecified atrial flutter Category: Medical Plan: As above. (3) Cardiomyopathy: Code(s): I42.9 - Cardiomyopathy, unspecified Category: Medical Plan: EKG today showed new right bundle branch block with left anterior fascicular block. Also has scattered T-wave abnormality and suggested undergoing a stress test to assess for ischemia. Patient would like to wait on this is a Holter is done. Currently without any cardiac symptoms. (4) Hospital discharge follow-up: Code(s): Z51.89 - Encounter for other specified aftercare Plan: As above. Advised on heart healthy diet, med compliance, adequate hydration, avoiding caffeinated beverages, stress mitigation strategies, and management of vascular risk factors. Orders: Orders ECG 3 day holter monitor Today I48.91 - Unspecified atrial fibrillation AMB EKG-In Office Today I48.91 - Unspecified atrial fibrillation, I48.92 - Unspecified atrial flutter Medications: New apixaban 5 mg PO BID 60 tabs 3RF Changed From metoprolol succinate ER 50 mg PO DAILY 90 days 90 tabs 3RF To metoprolol succinate ER 50 mg PO DAILY 90 tabs 3RF From furosemide (Lasix) 20 mg PO DAILY 30 days 30 tabs 3RF To furosemide (Lasix) 20 mg PO DAILY 90 tabs 3RF From digoxin 125 mcg PO DAILY 90 days 90 tabs 2RF To digoxin 125 mcg PO DAILY 90 tabs 3RF Coding Level of Care Code Est Pt Level 4 (84313) Add On Problem Visit Only Diagnoses Atrial fibrillation I48.91 Atrial flutter I48.92 Cardiomyopathy I42.9 Hospital discharge follow-up Z51.89 CPT Codes EKG - CPT: 26060-[id number], Complete ([id number]) Time Spent (min) 35 Comment Time spent in reviewing the chart, test results, assessment, counseling and documentation.
[2025-02-24 14:16] VITALS: BP 122/76; PULSE 58; BMI 23.9
== END 2025-02-24 14:59 | disposition home or self-care (01) ==
LOC: HO.HCS 14:12
PROVIDERS: PCP Family Medicine
DX: I48.91 Unspecified atrial fibrillation (principal); I48.92 Unspecified atrial flutter; I42.9 Cardiomyopathy, unspecified; Z51.89 Encounter for other specified aftercare
CPT/HCPCS: 93010; 99214; G2211

== ENCOUNTER → 2025-02-24 14:11 | Outpatient (BNVA) | payer MEDICARE, SELFPAY | PROVIDERS: PCP Family Medicine | DX: I48.91 Unspecified atrial fibrillation (principal); I48.92 Unspecified atrial flutter; I42.9 Cardiomyopathy, unspecified; Z51.89 Encounter for other specified aftercare; Z79.01 Long term (current) use of anticoagulants; Z87.891 Personal history of nicotine dependence | CPT/HCPCS: 93005; 99212 ==

== ENCOUNTER 2025-02-25 10:48 | Outpatient (REF) | payer MEDICARE, SELFPAY ==
--- OUTSIDE RECORDS SUMMARY | 2025-02-25 14:36 | XMS_ITS | Data Portability ---
Author Organization [facility], Main Office Address [address] [facility] [address] [place] [address] Care Team Providers Care Ip Technology Transactions Attorney Name Role Phone [facility] Urologist FLAVIO BATRES Primary Care Provider [phone] Assessment Encounter Date Assessment Date Assessment LastModified [...] or plasma 2018 019 [facility], [address], [place], [address], 9 14:23:05 lipid panel, serum 2018 019 [facility], [address], [place], [address], 9 14:23:06 hepatitis C virus Ab, serum 2018 019 [facility], [address] [place], [address], 9 16:18:27 HbA1c (hemoglobi n A1c), blood 2018 019 [facility], [address], [place], [address], 9 17:33:09 vitamin D, 25-hydroxy , total, serum 2018 019 [facility], [address], [place], [address], 9 14:41:42 colon cancer screening, stool 2018 019 [facility], [address] [facility], [place], [address], 0 15:46:29 lipid panel, serum 2015 016 [...] referral 2016 017 aliza Elias MD, [address] [facility], [place], [address], 7 20:52:42 urologist referral 2015 016 [id number]_[id number] Vaibhav Sexton MD, [address] [facility], [facility] [[email or web address] [address], [place], [address], 6 04:32:23 Procedures cerumen removal (PROC) 2015 016 DBA_PATCH_ [id number] In-Office Order, Internal Use Only DO Not Attach Compendium DO Not Attach Compendium, Do Not Delete/merge, [id number] 6 04:32:13 Surgeries None recorded. Imaging None recorded. Medication Orders None recorded. Patient TargetsNo targets recorded. Patient Instructions Encounter Date Encounter Id Patient Instructions Last Modified By Organization Details Last Modified Time 01/07/2016 [id number] earwax blockage: care instructions Not available 01/07/2016 14:08:36 urinary retention: care instructions Not available 01/07/2016 14:08:36 03/07/2016 [id number] urinary retention: care instructions Not available 03/08/2016 11:10:34 Colon Cancer Screening VMA Not available 03/08/2016 11:10:34 learning about colon cancer Not available 03/08/2016 11:10:34 08/07/2018 [id number] urinary retention: care instructions pmadden Not available [...] Carrillo Bruce, Internal Medicine, Encounter Date: 01/07/2016 Resource Management Planner Referral for Adult health examination Referring Physician: Carrillo Bruce, Internal Medicine, Encounter Date: 03/07/2016 Speech Clinician Referral for Screening for malignant neoplasm of [...] if clini sasha indic ated. Test Type: [place] site algor ithmi c mg sis of [...] years or older , who [facility] at [facility]. Colog uard has been [...] , singl e point in time) of [facility] [place] adult s aged 50-84 . Colog [...] ution s can be found at [email or web address] m. Rx only. Not Available [facility] [address], [place], [address], 08/07/2019 05:56:33 01/07/20 16 01/07/2016 cerum en remov al (PROC ) done by Gabriela Not Available In-Office Order Internal Use Only DO Not Attach Compendium DO Not Attach Compendium, Do Not Delete/merge, [id number] 01/07/2016 13:41:04 02/24/20 16 02/24/2016 BMP, serum or plasm a glucose 108 mg/dL (70-99 ) high Not Available [facility] (Centralized Electronic Ordering - All Locations) Patient Can Go To The Location Of Their Choice, [id number] 02/24/2016 15:56:51 02/24/20 16 02/24/2016 BMP, serum [...] Go To The Location Of Their Choice, [id number] 08/13/2018 14:23:04 08/14/1908/13/2018 CMP, serum or plasm [...] Go To The Location Of Their Choice, [id number] 08/13/2018 14:23:04 08/14/1908/13/2018 CMP, serum or plasm [...] Go To The Location Of Their Choice, [id number] 08/13/2018 14:23:04 08/14/19 19 08/13/2018 lipid panel , serum cholesterol, total 169 mg/dL (<200) Not Available [facility] (Centralized Electronic Ordering - All Locations) Patient Can Go To The Location Of Their Choice, [id number] 08/13/2018 14:23:06 08/14/19 19 08/13/2018 lipid panel , serum triglyceride 72 mg/dL (<150) Not Available [facility] (Centralized Electronic Ordering - All Locations) Patient Can Go To The Location Of Their Choice, [id number] 08/13/2018 14:23:08/14/19 19 08/13/2018 lipid panel , serum HDL chol 57 mg/dL (>39) Not Available [facility] (Centralized Electronic Ordering - All Locations) Patient Can Go To The Location Of Their Choice, [id number] 08/13/2018 14:23:06 08/14/19 19 08/13/2018 lipid panel , serum LDL cholesterol, calculated 98 mg/dL (0-130 ) Not Available [facility] (Centralized Electronic Ordering - All Locations) Patient Can Go To The Location Of Their Choice, [id number] 08/13/2018 14:23:06 08/14/19 19 08/13/2018 lipid panel , serum non HDL cholesterol (calc) 112 mg/dL (<160) Not Available [facility] (Centralized Electronic Ordering - All Locations) Patient Can Go To The Location Of Their Choice, [id number] 08/13/2018 14:23:06 08/14/1908/13/2018 vitam in D, 25-hy droxy , total , serum 25OH vitamin D 7.6 NG/mL (20-50 ) low Serum 25OHD : Less than 12 ng/ml : at risk of vitam in D defic iency . Refer ence: [facility] Data Brief : No.59 April: Vitam in D Statu s: Unite d [place] s: 2000- 2005 Not Available [facility] (Centralized Electronic Ordering - All Locations) Patient Can Go To The Location Of Their Choice, [id number] 08/13/2018 14:41:41 08/14/1908/13/2018 hepat itis C virus Ab, serum anti-hepatit is C NEGAT PORTIA Refer ence range : Negat portia This test was perfo rmed on the Abbot t Archi tect immun oassa y syste m. Not Available [facility] (Centralized Electronic Ordering - All Locations) Patient Can Go To The Location Of Their Choice, [id number] 08/13/2018 16:18:27 08/14/19 19 08/13/2018 HbA1c (hemo [...] Go To The Location Of Their Choice, [id number] 08/13/2018 17:33:09 01/11/20 16 12/28/2012 CT, abdom [...] BY YONATHAN SCHULER, OFFICE VISIT Not Available [facility] 4 05:27:39 Administ ration of bacteria l and viral vaccine Completed 200809/10/2013 RECORDED 07/01/19 09 9:14AM BY YONATHAN SCHULER, OFFICE VISIT Not Available [facility] 4 14:16:46 Acute pharyngi tis 234111196 Completed 201110/07/2013 IMPRESSI ON: RAPID STREP NEG, SUSPECT VIRAL. ADVISED RE SX CARE. CALL FOR WORSENIN G SXS/PRN. ; RECORDED 10/24/19 12 9:38AM BY KENYA HERRERA MA, ANNOTATI ON/ADDEN DUM Not Available [facility] 4 05:27:39 Disorder of bursa of shoulder region 95098414 Completed 201110/07/2013 RECORDED 10/24/19 12 10:36AM BY CARRILLO BRUCE MD, ANNOTATI ON/ADDEN DUM Not Available [facility] 4 05:27:39 Urinary tract infectio us disease 47269471 Completed 201110/07/2013 IMPRESSI ON: SOME MILD PROSTATE TENDERNE SS ON EXAM, CONSIDER PROSTATI TIS; RECORDED 10/24/19 12 9:38AM BY KENYA HERRERA MA, ANNOTATI ON/ADDEN DUM Not Available [facility] 4 05:27:39 Acute pharyngi tis 070369072 Completed 201109/10/2013 IMPRESSI ON: RAPID STREP NEG, SUSPECT VIRAL. ADVISED RE SX CARE. CALL FOR WORSENIN G SXS/PRN. ; RECORDED 10/24/19 12 9:38AM BY KENYA HERRERA MA, ANNOTATI ON/ADDEN DUM Not Available [facility] 4 14:16:45 Disorder of bursa of shoulder region 25898710 Completed 201109/10/2013 RECORDED 10/24/19 12 10:36AM BY CARRILLO BRUCE MD, ANNOTATI ON/ADDEN DUM Not Available [facility] 4 14:16:47 Urinary tract infectio us disease 22029782 Completed 201109/10/2013 IMPRESSI ON: SOME MILD PROSTATE TENDERNE SS ON EXAM, CONSIDER PROSTATI TIS; RECORDED 10/24/19 12 9:38AM BY KENYA HERRERA MA, ANNOTATI ON/ADDEN DUM Not Available [facility] 4 14:16:47 Impacted saúlumen 46366248 Completed 201110/07/2013 RECORDED 02/24/20 12 10:31AM BY CAROL HEREDIA MA, ANNOTATI ON/ADDEN DUM Not Available [facility] 4 05:27:39 Screenin g for malignan t neoplasm of colon Completed 201110/07/2013 RECORDED 02/24/20 12 10:31AM BY CAROL HEREDIA MA, ANNOTATI ON/ADDEN DUM Not Available [facility] 4 05:27:39 Impacted saúlumen 69350514 Completed 201109/10/2013 RECORDED 02/24/20 12 10:31AM BY CAROL HEREDIA MA, ANNOTATI ON/ADDEN DUM Not Available [facility] 4 14:16:46 Screenin g for malignan t neoplasm of colon Completed 201109/10/2013 RECORDED 02/24/20 12 10:31AM BY CAROL HEREDIA MA, ANNOTATI ON/ADDEN DUM Not Available [facility] 4 14:16:46 Malaise and fatigue 878160241 Completed 201210/07/2013 RECORDED 12/29/19 13 12:57PM BY ANAHI CHAMPAGNE MA, ANNOTATI ON/ADDEN DUM Not Available [facility] 4 05:27:39 Glucose level outside referenc e range 359287081 Completed 201210/07/2013 RECORDED 12/29/19 13 12:57PM BY ANAHI CHAMPAGNE MA, ANNOTATI ON/ADDEN DUM Not Available [facility] 4 05:27:39 Screenin g procedur e Completed 201210/07/2013 RECORDED 12/29/19 13 12:57PM BY ANAHI CHAMPAGNE MA, ANNOTATI ON/ADDEN DUM Not Available [facility] 4 05:27:39 Malaise and fatigue 115072537 Completed 201209/10/2013 RECORDED 12/29/19 13 12:57PM BY ANAHI CHAMPAGNE MA, FAMILIAATI ON/ADDEN DUM Not Available [facility] 4 14:16:46 Glucose level outside referenc e range 473977562 Completed 201209/10/2013 RECORDED 12/29/19 13 12:57PM BY ANAHI CHAMPAGNE MA, FAMILIAATI ON/ADDEN DUM Not Available [facility] 4 14:16:46 Screenin g procedur e Completed 201209/10/2013 RECORDED 12/29/19 13 12:57PM BY ANAHI CHAMPAGNE MA, RADHA ON/ADDEN DUM Not Available [facility] 4 14:16:46 Finding of trunk structur e Completed 201210/07/2013 RESOLVED DATE: 01/03/20 13; STORY: WOUND UP BEING SEVERELY DISTENDE D BLADDER; RECORDED 01/03/20 13 2:36PM BY SHAHEED BANDA, ANNOTATI ON/ADDEN DUM Not Available [facility] 4 05:27:39 Retentio n of urine 157225365 Completed 201210/07/2013 RECORDED 01/03/20 13 1:00PM BY BALAJI AG MA, ANNOTATI ON/ADDEN DUM YONATHAN [place] - [facility] 6 13:16:50 Adult health examinat ion Completed 201210/07/2013 RECORDED 01/03/20 13 1:00PM BY BALAJI AG MA, FAMILIAATI ON/ADDEN DUM Not Available [facility] 4 05:27:39 Edema 626467098 Completed 201210/07/2013 RECORDED 01/03/20 13 12:59PM BY BALAJI AG MA, RADHA ON/ADDEN DUM Not Available [facility] 4 05:27:39 Follow-u p encounte r Completed 201210/07/2013 RECORDED 01/03/20 13 1:00PM BY BALAJI AG MA, ANNOTATI ON/ADDEN DUM Not Available [facility] 4 05:27:39 Finding of trunk structur e Completed 201209/10/2013 RESOLVED DATE: 01/03/20 13; STORY: WOUND UP BEING SEVERELY DISTENDE D BLADDER; RECORDED 01/03/20 13 2:36PM BY SHAHEED BANDA, ANNOTATI ON/ADDEN DUM Not Available [facility] 4 14:16:45 Retentio n of urine 502191350 Completed 201209/10/2013 RECORDED 01/03/20 13 1:00PM BY BALAJI AG MA, ANNOTATI ON/ADDEN DUM YONATHAN [place] - [facility] 6 13:16:50 Adult health examinat ion Completed 201209/10/2013 RECORDED 01/03/20 13 1:00PM BY BALAJI AG MA, ANNOTATI ON/ADDEN DUM Not Available [facility] 4 14:16:45 Edema 744513249 Completed 201209/10/2013 RECORDED 01/03/20 13 12:59PM BY BALAJI AG MA, ANNOTATI ON/ADDEN DUM Not Available [facility] 4 14:16:46 Follow-u p encounte r Completed 201209/10/2013 RECORDED 01/03/20 13 1:00PM BY BALAJI AG MA, ANNOTATI ON/ADDEN DUM Not Available [facility] 4 14:16:46 Acute kidney injury 24212588 Completed 201310/07/2013 STORY: SECONDAR Y TO URINARY RETENTIO N; IMPRESSI ON: KEEP UROLOGY APPT. DOING BETTER.; RECORDED 05/14/19 14 1:54PM BY CARRILLO BRUCE MD, FAMILIAATI ON/ADDEN DUM Not Available [facility] 4 05:27:39 Laborato ry procedur e performe d 491251135 Completed 201310/07/2013 RECORDED 05/14/19 14 1:17PM BY ANAHI CHAMPAGNE MA, ANNOTATI ON/ADDEN DUM Not Available [facility] 4 05:27:39 Acute kidney injury 15093731 Completed 201309/10/2013 STORY: SECONDAR Y TO URINARY RETENTIO N; IMPRESSI ON: KEEP UROLOGY APPT. DOING BETTER.; RECORDED 05/14/19 14 1:54PM BY CARRILLO BRUCE MD, ANNOTATI ON/ADDEN DUM Not Available [facility] 4 14:16:45 Anemia 830513850 Completed 201308/07/2018 Flavio Batres PA-C [address] [facility] [address], [place], [address] , [facility] 9 13:35:56 Clinical finding Completed 201301/07/2016 IMPRESSI ON: LETTER SENT. UNABLE TO REACH PT BY PHONE; RECORDED 05/14/19 14 1:17PM BY ANAHI CHAMPAGNE MA, OFFICE VISIT YONATHAN Thurston [facility] 6 13:17:01 Tobacco user [id number] Completed 201303/07/2016 Removal Reason: quit YONATHAN [place], [facility] 7 10:15:11 History of clinical finding in subject 803265754 Completed 201301/07/2016 RECORDED 05/14/19 14 1:17PM BY ANAHI CHAMPAGNE MA, OFFICE VISIT YONATHAN Thurston [facility] 6 13:17:05 Hyperlip idemia 15058618 Active [address] [facility] 6 13:17:08 Laborato ry procedur e performe d 066756628 Completed 201309/10/2013 RECORDED 05/14/19 14 1:17PM BY ANAHI CHAMPAGNE MA, RADHA ON/ADDEN DUM Not Available [facility] 4 14:16:46 Immuniza tion refused Completed 201301/07/2016 RECORDED 05/14/19 14 1:17PM BY ANAHI CHAMPAGNE MA, OFFICE VISIT YONATHAN [place], [facility] 6 13:16:56 Retentio n of urine 197042755 Active 2013 STORY: FOLLOW UP WITH DR. SEXTON. YONATHAN Thurston, [facility] 6 13:16:50 Ex-smoke r 4715640 Active 2016 YONATHAN Thurston, [facility] 7 10:15:19 Benign prostati c hyperpla chastity with outflow obstruct ion 887746796 Active 2018 Flavio Batres PA-C [address], [place], [address] , [facility] 9 14:07:37 Impaired fasting glycemia 158388917 Active 2018 Flavio Batres PA-C [address], [place], [address] , [facility] 9 14:07:44 Varicose veins of lower extremit y 61369576 Active 2018 Flavio Batres PA-C [address], [place], [address] , [facility] 9 14:07:47 Prediabe ravi 716424068 Active 2018 Flavio Batres PA-C [address], [place], [address] , [facility] 9 12:46:17 Vitamin D deficien cy 15174011 Active 2018 Flavio Batres PA-C [address], [place], [address] , [facility] 9 12:46:19 Problem Notes None recorded. Procedures Surgical History Date Name Laterality Status Provider Name and Address Organization Details Recorded Time Colonoscopy completed Anahi YONATHAN Tavarez [facility] 03/07/2016 10:26:42 Back Surgery completed Anahi Tavarez MA [facility] 03/07/2016 10:26:05 FOBT completed Anahi Tavarez [facility] 03/07/2016 10:29:31 Imaging Results None recorded. Procedure Notes None recorded. Medical Equipment None Reported. Allergies Allergen ID Allergen Name Allergen Category Reaction Reaction Severity Criticality Documentation Date Start Date Code Code System Note Provider Name and Address Organization Details Recorded Time 08121 POLLEN EXTRACTS environme nt,medica tion eye swelling moderate Not available 08/07/2018 46042 6 Rx[address] [facility] 9 12:56:24 82366 shellfish derived food,medi cation anaphylax is severe Not available 08/07/[address] [facility] 9 12:56:48 Medications Name Sig Start [...] 03/07/2016 122/80 mm[Hg] Carrillo Bruce MD [address] [address], [place], [address], [facility] 03/07/2016 11:01:21 Date Recorded Body height Oxygen saturation Heart rate Body temperature Body weight Body mass index (BMI) Provider Name and Address Organization Details Last Updated DateTime 7 176.53 cm 99 % 73 /min 97.7 [degF] 34621.3 3 g 24.2 kg/m2 Anahi jimenez MA [facility] 7 10:32:23 Date Recorded Body height Body mass index (BMI) Body weight Heart rate Oxygen saturation Body temperature Systolic And Diastolic Provider Name and Address Organization Details Last Updated DateTime 9 176.53 cm 23.9 kg/m2 55474.1 5 g 89 /min 98 % 97.8 [degF] 131/89 mm[Hg] Renetta Scott [facility] 9 12:55:08 Date Recorded Body height Oxygen saturation Heart rate Body temperature Body weight Body mass index (BMI) Systolic And Diastolic Provider Name and Address Organization Details Last Updated DateTime 6 182.88 cm 100 % 68 /min 97.2 [degF] 18290.3 3 g 22.5 kg/m2 114/76 mm[Hg] Anahi jimenez MA [facility] 6 13:24:47 Social History Question Answer Notes LastModified by Organizat ion Details LastModified Time Tobacco Smoking Status Former Smoker YONATHAN Gutierrez, 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 Information not available 03/07/2016 What is your [...] preservative free, adsorbed 9 completed Not Available [facility] 03/16/2019 02:21:30 Tdap 9 completed Not Available [facility] 09/10/2013 13:53:16 Past Encounters Encounter ID Performer Location Encounter Start Date Encounter Closed Date Diagnosis/Indication Diagnosis SNOMED-CT Code Diagnosis ICD10 Code Diagnosis IMO Codes Diagnosis Note [id number] [facility] [address] [facility] [place] [address] 06/30/2008 00:00:00 [id number] auto[employer]Comm erce [address] [facility] [place] [address] 08/14/2009 00:00:00 [id number] [employer] erce [address] [facility] [place] [address] 07/13/2010 00:00:00 [id number] auto[employer]Comm erce [address] [facility] [place] [address] 07/05/2011 00:00:00 [id number] auto[employer] erce [address] [facility] [place] [address] 10/24/2011 00:00:00 [id number] [employer] erce [address] [facility] [place] [address] 12/28/2012 00:00:00 [id number] auto[employer]Comm erce [address] [facility] [address] [facility] [place] [address] 01/02/2013 00:00:00 [id number] autoEComm erce [address] [facility] [address] [facility] [place] [address] 05/13/2013 00:00:00 [id number] Carrillo Bruce MD Main Office [address] [place] [address] 01/07/2016 13:14:30 01/07/2016 14:10:54 Impacted cerumen 85701879 H61.23 Retention of urine 35294 4002 R33.9 Hyperlipidemia 97766114 E78.5 Fatigue 82296271 R53.83 [id number] Carrillo Bruce MD Main Office [address] [place] [address] 03/07/2016 10:01:52 03/07/2016 10:59:50 Adult health examination 375278867 Z00.00 Varicella vaccination 68 389020 Z23 Screening for malignant neoplasm of colon 635746846 Z12.11 Plans to do FOBT Retention of urine 62565 4002 R33.9 Benign pro static hyperplasia with outflow obstruction 061193908 N13.8 Followed by . has declined surgery for severe obstructio n. [id number] Vance Gore MD Main Office [address] [address] 08/07/2018 12:47:03 08/07/2018 14:11:32 Adult health examination 443067190 Z00.00 Screening for malignant neoplasm of colon 649813210 Z12.11 rec colonoscop y, but if he defers - at least look into cologuard Retention of urine 29778 4002 R33.9 History of urinary retention related to BPH. has had poor follow up with and declines surgery. Now doing self-cath 2 to 3 times per day (recommend ed 4 times daily). pending f/u c uro next wk Benign pro static hyperplasia with outflow obstruction 612708235 N13.8 Followed by . has declined surgery for severe obstructio n. Vitamin D deficiency 347 93052 E55.9 Impaired f asting glycemia 416856834 R73.01 Requires a tetanus booster 721981819 Z23 Varicella vaccination 68 618447 Z23 Varicose v eins of lower extremity 66492470 I83.93 Health Concerns Section Related Observation LastModified by Organization Detai ls LastModified Time None Recorded Concern Status LastModified by Organization Details LastModified Time None Recorded Advance Directives Directive Y: signed on 03/07/2016 Payers Insurance Date Sequence Insurance Name Policy Number Policy Gant Covered Member ID Gant Member ID Guarantor Name 03/21/2022 1 [employer] [id number] Anthony Maldonado [id number] Anthony Maldonado 03/21/2022 1 [id number] Anthony Maldonado [id number] Anthony Maldonado 03/21/2022 1 [employer] (PPO) [id number] Anthony Maldonado [id number] Anthony Maldonado Notes Date Note Type Note Provider Name and Address Organization Details Recorded Time 01/07/2016 text/html ROS as noted in the HPI Notes decreased hearing and some discomfort both ears. Has had to have ear lavage in the past. No fevers. No nasal congestion, headaches, sore throat. Carrillo Bruce MD [address], [address], [facility] [place] 01/07/2016 13:45:38 03/07/2016 text/html Here for PE visit. Reviewed chronic medications and medical problems. Discussed screening guidelines as well as goals for fitness and weight management. Noted to have history of urinary retention related to BPH. now with bladder dysfunction requiring intermittent self cath. He has repeat US and follow up scheduled with urology. Carrillo Bruce MD [address] [address], [place], [address], [facility] [place] 03/07/2016 11:01:56 08/07/2018 text/html Generic HPI TemplateReported by Patient here for annual pe. Flavio Batres PA-C [address] [address], [place], [address], [facility] [place] 08/07/2018 14:08:13
[2025-02-25 15:37] LABS: MANUAL DIFF FLAG NO
[2025-02-25 15:45] LABS: Hematocrit 46.8 % (42.0-52.0); Hemoglobin 15.3 g/dl (14.0-18.0); Imm Gran Abs Auto 0.01 X10*3/uL (0.00-0.03); Imm Gran Pct Auto 0.2 % (0.0-0.4); Lymphocytes Absolute Auto 1.6 X10*3/uL (1.2-4.9); Mean Corpuscular HGB Conc 32.7 g/dl (31.0-36.0); Mean Corpuscular Hemoglobin 29.6 pg (27.0-33.0); Mean Corpuscular Volume 90.5 fL (80.0-98.0); NRBC Abs Auto 0.000 X10*3/uL (0.0-0.012); NRBC Pct Auto 0.0 /100WBC (0.0-0.2); Platelet Count 146 X10*3/uL (160-400); Red Blood Count 5.17 X10*6/uL (4.60-5.80); White Blood Count 5.3 X10*3/uL (4.8-10.8)
[2025-02-25 16:10] LABS: Digoxin 0.9 ng/mL (0.8-2.0)
[2025-02-25 16:13] LABS: Anion Gap 10 (12-20); Blood Urea Nitrogen 27 mg/dL (9-16); Calcium 9.9 mg/dL (8.4-10.2); Carbon Dioxide 28 mmol/L (22-29); Chloride 107 mmol/L (96-108); Estimated Glomerular Filt Rate > 60; Potassium 5.4 mmol/L (3.3-5.1); Sodium 140 mmol/L (135-145)
== END 2025-02-25 10:49 | disposition home or self-care (01) ==
LOC: HO.WFDLDS 10:48
PROVIDERS: Visit Provider Family Medicine
DX: Z00.00 Encounter for general adult medical examination without abnormal findings (principal); I48.92 Unspecified atrial flutter; Z13.29 Encounter for screening for other suspected endocrine disorder
CPT/HCPCS: 36415; 80048; 80162; 84443; 85025